=== PATIENT | female | born 1980 | race Hispanic/Latino ===

== ENCOUNTER 2017-08-02 01:14 | Emergency (ER) | payer MEDICAID ==
[2017-08-02] MEDS: NORCO 7.5/325 PO ONE (05:07)
--- NOTE | 2017-08-02 05:18 | XRay Report ---
FINAL REPORT PROCEDURE: XR SPINE LUMBOSACRAL 2-3V TECHNIQUE: Lumbar spine radiographs, including AP, lateral, and lumbosacral spot views. CPT 40551 HISTORY: lower back pain COMPARISON: No prior studies are available for comparison. FINDINGS: Alignment: There is grade 1 anterior spondylolisthesis of L5 over S1.. Vertebral body heights/Disk spaces: There is loss of disc height at L5-S1.. Fracture(s): None. Facets: There is bilateral spondylolysis at L5-S1.. Bone mineralization: Normal. IMPRESSION: There are no compression fractures.. There is grade 1 anterior spondylolisthesis of L5 over S1.. There is loss of disc height at L5-S1.. There is bilateral spondylolysis at L5-S1..
--- NOTE | 2017-08-02 05:42 | Emergency Department Report ---
ED Back Pain/Injury HPI - General Chief Complaint: Back Pain/Injury Stated Complaint: LOWER BACK PAIN Time Seen by Provider: 08/02/17 04:56 Source: patient Limitations: No Limitations - History of Present Illness Initial Comments: History 6-year-old female comes in for complaint of back pain that has been going on for a month. Patient reports that she has a history of spinal problems status post back trauma 20 years ago. Patient reports she she' s been taking ibuprofen 800 mg 3 times a day as well as she's tried Aleve. And she's been using heat wraps. She denies any loss of bowel or urine. She denies any radiation to her lower extremities or buttocks. She denies any dysuria. 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 MD Complaint: back pain -: month(s) (1) Place: home Radiation: none Severity: severe Severity scale (0 -10): 9 Consistency: intermittent Improves With: other Worsens With: movement, walking (heat wrap) Associated Symptoms: denies: numbness, difficulty urinating, incontinence, fever /chills Treatments Prior to Arrival: heat therapy, NSAIDS - Related Data Previous Rx's Medication Instructions Recorded Last Taken Type traMADol [Ultram 50 MG tab] 50 mg PO Q6HR PRN #20 tablet 08/02/17 Unknown Rx Allergies Allergy/AdvReac Type Severity Reaction Status Date / Time No Known Allergies Allergy Unverified 08/02/17 01:39 ED Review of Systems ROS: Stated complaint: LOWER BACK PAIN Other details as noted in HPI Constitutional: denies: chills, fever Eyes: denies: eye pain, eye discharge, vision change ENT: denies: ear pain, throat pain Respiratory: denies: cough, shortness of breath, wheezing Cardiovascular: denies: chest pain, palpitations Endocrine: no symptoms reported Gastrointestinal: denies: abdominal pain, nausea, diarrhea Genitourinary: denies: urgency, dysuria, discharge Musculoskeletal: back pain. denies: joint swelling, arthralgia Skin: denies: rash, lesions Neurological: denies: headache, weakness, paresthesias Psychiatric: denies: anxiety, depression Hematological/Lymphatic: denies: easy bleeding, easy bruising ED Past Medical Hx - Past Medical History Previous Medical History?: Yes Hx Hypertension: Yes Additional medical history: spine pblms - Surgical History Past Surgical History?: Yes Hx Cholecystectomy: Yes Additional Surgical History: c-sectX1, tubaligation, carpal tunnel - Social History Smoking Status: Current Every Day Smoker Substance Use Type: None - Medications Home Medications: Home Medications Medication Instructions Recorded Confirmed Last Taken Type traMADol [Ultram 50 MG tab] 50 mg PO Q6HR PRN #20 tablet 08/02/17 Unknown Rx ED Physical Exam - General Limitations: No Limitations General appearance: alert, in no apparent distress - Head Head exam: Present: atraumatic, normocephalic - Eye Eye exam: Present: normal appearance - ENT ENT exam: Present: mucous membranes moist - Neck Neck exam: Present: normal inspection - Respiratory Respiratory exam: Present: normal lung sounds bilaterally. Absent: respiratory distress - Cardiovascular Cardiovascular Exam: Present: regular rate, normal rhythm. Absent: systolic murmur, diastolic murmur, rubs, gallop - GI/Abdominal GI/Abdominal exam: Present: soft, normal bowel sounds - Extremities Exam Extremities exam: Present: normal inspection - Back Exam Back exam: Present: normal inspection, full ROM, vertebral tenderness. Absent: muscle spasm, paraspinal tenderness - Neurological Exam Neurological exam: Present: alert, oriented X3 - Psychiatric Psychiatric exam: Present: normal affect, normal mood - Skin Skin exam: Present: warm, dry, intact, normal color. Absent: rash ED Course Vital Signs 08/02/17 08/02/17 01:40 05:07 Temperature 98.8 F Pulse Rate 119 H Respiratory 18 18 Rate Blood Pressure 139/96 O2 Sat by Pulse 95 Oximetry ED Medical Decision Making - Radiology Data Radiology results: report reviewed, image reviewed FINDINGS: Alignment: There is grade 1 anterior spondylolisthesis of L5 over S1.. Vertebral body heights/Disk spaces: There is loss of disc height at L5-S1.. Fracture(s): None. Facets: There is bilateral spondylolysis at L5-S1.. Bone mineralization: Normal. IMPRESSION: There are no compression fractures.. There is grade 1 anterior spondylolisthesis of L5 over S1.. There is loss of disc height at L5-S1.. There is bilateral spondylolysis at L5-S1.. Transcribed By: CO Dictated By: MONE AKINS MD Electronically Authenticated By: MONE AKINS MD Signed Date/Time: 08/02/17512 DD/ 2 TD/TT: 08/02/17512 - Medical Decision Making Patient has been evaluated by this provider fast track. X-ray was ordered for patient pain medication. Discussed the patient she needs to follow up with orthopedics or back specialist. Critical care attestation.: If time is entered above; I have spent that time in minutes in the direct care of this critically ill patient, excluding procedure time. ED Disposition Clinical Impression: Spondylolisthesis at L5-S1 level, Spondylolysis, lumbosacral Disposition: DC- TO HOME OR SELFCARE Is pt being admited?: No Does the pt Need Aspirin: No Condition: Stable Instructions: Degenerative Disc Disease (ED), Cervical Radiculopathy (ED) Additional Instructions: Take pain medication as prescribed. Avoid picking up a heavy objects or people. Follow up with an orthopedist for further evaluation. Prescriptions: traMADol [Ultram 50 MG tab] 50 mg PO Q6HR PRN #20 tablet PRN Reason: Pain Referrals: CON JIMENEZ MD [Primary Care Provider] - 3-5 Days SYED UNDERWOOD MD [Staff Physician] - 3-5 Days [facility] [Provider Group] - 3-5 Days Forms: Accompanied Note
[2017-08-02 06:14] VITALS: BP 134/89
== END 2017-08-02 06:14 | disposition home or self-care (01) ==
LOC: ED 01:14
DX: M43.17 Spondylolisthesis, lumbosacral region (principal); I10 Essential (primary) hypertension; F17.200 Nicotine dependence, unspecified, uncomplicated; Z90.49 Acquired absence of other specified parts of digestive tract; Z98.51 Tubal ligation status
CPT/HCPCS: 72100; 99283

== ENCOUNTER 2018-03-02 18:53 | Emergency (ER) | payer SELFPAY ==
[2018-03-02 20:35] LABS: Hematocrit 42.5 % (30.3-42.9); Hemoglobin 14.2 gm/dl (10.1-14.3); Mean Corpuscular HGB Conc 34 % (30-34); Mean Corpuscular Hemoglobin 29 pg (28-32); Mean Corpuscular Volume 87 fl (79-97); Platelet Count 266 K/mm3 (140-440); Red Blood Count 4.88 M/mm3 (3.65-5.03); Red Cell Distribution Width 14.7 % (13.2-15.2)
[2018-03-02 20:46] LABS: INR 0.85 (0.87-1.13)
[2018-03-02 20:47] LABS: Partial Thromboplastin Time 33.4 Sec. (24.2-36.6)
[2018-03-02 20:49] LABS: BUN/Creatinine Ratio 6; Blood Urea Nitrogen 3 mg/dL (7-17); Hemolysis Index 13
[2018-03-02] MEDS ORDERED: NACL 0.9% 1000 ML 1,000 ML IV ONE (22:19)
[2018-03-02] MEDS ORDERED: K-DUR PO ONE (22:19)
[2018-03-02] MEDS ORDERED: MORPHINE IV ONE (23:48)
--- NOTE | 2018-03-03 01:02 | XRay Report ---
FINAL REPORT EXAM: XR CHEST 1V AP HISTORY: SOB TECHNIQUE: AP portable view of the chest. PRIORS: None. FINDINGS: The cardiomediastinal silhouette appears normal. The lungs are clear. The bones and soft tissues are unremarkable. IMPRESSION: No evidence of acute cardiopulmonary disease.
[2018-03-03] MEDS ORDERED: LOVENOX SUB-Q ONE (02:19)
--- NOTE | 2018-03-03 02:22 | Emergency Department Report ---
HPI - General Chief Complaint: Extremity Injury, Lower Time Seen by Provider: 03/02/18 21:57 - HPI HPI: 37-year-old female presents to the emergency department with complaint of some left thigh pain and the development of some small red nodular areas in the thigh that began while the patient was taking a bath earlier. Patient has a past medical history of hypertension, some "spine problems" and anxiety and/or panic attacks. She has a surgical history of cholecystectomy, C- section 1 and tubal ligation. She denies any fever, chest pain, back pain, lower extremity edema. Patient has some tramadol that she takes occasionally as needed for discomfort and she took one of those for her left thigh pain without much relief. There is no recent travel, recent surgery or recent immobility. ED Past Medical Hx - Past Medical History Hx Hypertension: Yes Additional medical history: spine pblms,PANIC ATTACKES - Surgical History Hx Cholecystectomy: Yes Additional Surgical History: c-sectX1, tubaligation, carpal tunnel - Social History Smoking Status: Never Smoker Substance Use Type: None - Medications Home Medications: Home Medications Medication Instructions Recorded Confirmed Last Taken Type traMADol [Ultram 50 MG tab] 50 mg PO Q6HR PRN #20 tablet 08/02/17 Unknown Rx Sulfamethoxazole/Trimethoprim 1 each PO BID #10 tablet 03/03/18 Unknown Rx [Bactrim DS TAB] ED Review of Systems ROS: Stated complaint: LT LEG PAIN Other details as noted in HPI Comment: All other systems reviewed and negative Constitutional: denies: chills, fever Eyes: denies: eye pain, eye discharge, vision change ENT: denies: ear pain, throat pain Respiratory: denies: cough, shortness of breath, wheezing Cardiovascular: denies: chest pain, palpitations Gastrointestinal: denies: abdominal pain, nausea, diarrhea Genitourinary: denies: urgency, dysuria, discharge Musculoskeletal: myalgia. denies: back pain Skin: change in color. denies: pruritus Neurological: denies: headache, weakness, paresthesias Physical Exam - Physical Exam Vital Signs: Vital Signs 03/02/18 03/02/18 03/02/18 19:39 19:48 22:25 Temperature 98.7 F 98.7 F 98 F Pulse Rate 124 H 117 H 96 H Respiratory 18 18 16 Rate Blood Pressure 154/116 154/116 Blood Pressure 140/96 [Left] O2 Sat by Pulse 97 97 99 Oximetry Physical Exam: GENERAL: The patient is well-developed well-nourished. HENT: Normocephalic. Atraumatic. Patient has moist mucous membranes. EYES: Extraocular motions are intact. Pupils equal reactive to light bilaterally. NECK: Supple. Trachea is midline. CHEST/LUNGS: Clear to auscultation. There is no respiratory distress noted. HEART/CARDIOVASCULAR: Regular. There is mild tachycardia. There is no murmur. ABDOMEN: Abdomen is soft, nontender. Patient has normal bowel sounds. There is no abdominal distention. SKIN: Skin is warm and dry. The patient has a few areas of linear slightly raised, tender, redness to the left medial upper thigh. It has a ropy texture and I feel it is consistent with superficial thrombophlebitis. NEURO: The patient is awake, alert, and oriented. The patient is cooperative. The patient has no focal neurologic deficits. The patient has normal speech. MUSCULOSKELETAL: There is some tenderness palpation to the left medial thigh where the patient has the few small linear ropy lesions. There is no limitation range of motion. There is no evidence of acute injury. ED Course Vital Signs 03/02/18 03/02/18 03/02/18 19:39 19:48 22:25 Temperature 98.7 F 98.7 F 98 F Pulse Rate 124 H 117 H 96 H Respiratory 18 18 16 Rate Blood Pressure 154/116 154/116 Blood Pressure 140/96 [Left] O2 Sat by Pulse 97 97 99 Oximetry ED Medical Decision Making - Lab Data Result diagrams: 03/02/18 20:18 03/02/18 20:18 - Radiology Data Radiology results: report reviewed, image reviewed interpreted by me: Chest x-ray does not show any acute process. There are no pleural effusions, obvious pneumonia and there is no pneumothorax. VQ scan is negative for pulmonary embolism. - Medical Decision Making This patient came in with complaint of some pain to the left thigh where she has some small red linear lesions that showed up while she was taking a bath. They are reproducible and when you palpate them they are small, superficial and ropey and feel that they are consistent with superficial thrombophlebitis. However the patient will be set up to get a outpatient venous Doppler ultrasound. Labs were done that did show an elevated d-dimer. Despite not having any chest pain, back pain or shortness of breath, I felt it was an official to rule out a pulmonary embolism. We had difficulty obtaining the period this resulted as negative for pulmonary embolism. Patient was given a dose of Lovenox and I set her up for an outpatient venous Doppler ultrasound to rule out a DVT as the source. If positive, she will be redirected to the emergency department for anticoagulation. If negative, she has been encouraged to follow up with her primary care physician. Patient's vital signs have been stable throughout her ED course and the tachycardia improved with some IV fluid and reassurance. She will return to the ER with any worsening or symptoms or any acute distress. - Differential Diagnosis DVT, superficial thrombophlebitis, cellulitis Critical Care Time: No Critical care attestation.: If time is entered above; I have spent that time in minutes in the direct care of this critically ill patient, excluding procedure time. ED Disposition Clinical Impression: Left thigh pain Disposition: DC-01 TO HOME OR SELFCARE Is pt being admited?: No Condition: Stable Instructions: Superficial Thrombophlebitis (ED) Additional Instructions: Please call the number on the discharge paperwork tomorrow morning to schedule an appointment to go to the outpatient imaging portion of the hospital for a left lower extremity venous Doppler ultrasound. This ultrasound will check you for a deep vein thrombosis, a blood clot in your leg. If negative, please make sure to follow up with your primary care physician in the next few days. If it is positive for a clot, you will be redirected to the emergency department for further evaluation and anticoagulation. Return to the emergency Department with any worsening of your symptoms or any acute distress. Prescriptions: Sulfamethoxazole/Trimethoprim [Bactrim DS TAB] 1 each PO BID #10 tablet Referrals: PRIMARY CARE [Primary Care Provider] - [facility] Time of Disposition: 02:30
--- NOTE | 2018-03-03 02:24 | Nuclear Medicine Report ---
FINAL REPORT EXAM: NM LUNG SCAN PERF/VENT HISTORY: SOB, elevated dimer TECHNIQUE: The nuclear medicine ventilation perfusion study was performed. The patient was given 15 mCi of Xe 133 gas and 5 mCi of technetium 99m MAA for the perfusion study. Images were acquired in the standard projections. Correlation is made with chest radiograph performed on the same date. PRIORS: None. FINDINGS: There is normal distribution of the radiopharmaceutical from both the ventilation and perfusion studies. There are no defects. IMPRESSION: Normal VQ scan. No evidence of PE.
[2018-03-03 03:03] VITALS: BP 138/97
== END 2018-03-03 03:02 | disposition home or self-care (01) ==
LOC: ED 18:53
DX: M79.652 Pain in left thigh (principal); L98.8 Other specified disorders of the skin and subcutaneous tissue; I10 Essential (primary) hypertension; Z90.49 Acquired absence of other specified parts of digestive tract; Z98.51 Tubal ligation status
CPT/HCPCS: 36415; 71045; 78582; 80048; 85027; 85379; 85610; 85730; 96372; 96374; 99284; A9540; A9558; J1650; J2270; J7030

== ENCOUNTER 2018-03-06 21:27 | Inpatient (IN) | payer SELFPAY ==
[2018-03-06] MEDS ORDERED: NACL 0.9% 500 ML 500 ML IV ONE (21:54)
[2018-03-06 23:41] LABS: Basophils # (Auto) 0.1 K/mm3 (0.0-0.1); Basophils % (Auto) 0.4 % (0.0-1.8); Eosinophils % (Auto) 0.2 % (0.0-4.3); Hematocrit 41.5 % (30.3-42.9); Hemoglobin 14.2 gm/dl (10.1-14.3); Lymphocytes # (Auto) 1.4 K/mm3 (1.2-5.4); Lymphocytes % (Auto) 11.3 % (13.4-35.0); Mean Corpuscular HGB Conc 34 % (30-34); Mean Corpuscular Hemoglobin 30 pg (28-32); Mean Corpuscular Volume 87 fl (79-97); Monocytes # (Auto) 0.6 K/mm3 (0.0-0.8); Monocytes % (Auto) 4.5 % (0.0-7.3); Platelet Count 145 K/mm3 (140-440); Red Blood Count 4.77 M/mm3 (3.65-5.03); Red Cell Distribution Width 15.2 % (13.2-15.2)
[2018-03-06 23:50] LABS: INR 0.93 (0.87-1.13)
--- NOTE | 2018-03-07 | XRay Report ---
FINAL REPORT PROCEDURE: XR CHEST 1V AP TECHNIQUE: Chest radiograph anteroposterior view. CPT 21305 HISTORY: possible Sepsis COMPARISON: 03/02/2018 FINDINGS: Heart: Normal. Mediastinum/Vessels: Normal. Lungs/Pleural space: Normal. Bony thorax: No acute osseous abnormality. Life support devices: None. IMPRESSION: No acute cardiopulmonary abnormality.
[2018-03-07] MEDS ORDERED: PROVENTIL IH ONE (00:10)
[2018-03-07] MEDS ORDERED: TYLENOL PO ONE (00:22)
[2018-03-07] MEDS ORDERED: K-DUR PO ONE (00:23)
[2018-03-07] MEDS ORDERED: NACL 0.9% 1000 ML IV ONE (00:23)
[2018-03-07 00:25] LABS: Alanine Aminotransferase 57 units/L (7-56); BUN/Creatinine Ratio 17; Blood Urea Nitrogen 10 mg/dL (7-17); Calcium 9.9 mg/dL (8.4-10.2); Hemolysis Index 36
[2018-03-07] MEDS ORDERED: XANAX PO ONE (00:35)
[2018-03-07] MEDS ORDERED: DILAUDID IM ONE (00:35)
--- NOTE | 2018-03-07 00:38 | Emergency Department Report ---
ED Fever HPI - General Chief Complaint: Chest Pain Stated Complaint: DIFFICULTY IN BREATHING Source: patient, old records Exam Limitations: no limitations - History of Present Illness Initial Comments: 37 yo female with a past medical history of IV drug abuse, hypertension, panic attacks on Xanax, and "spine problems", previous surgical history cholecystectomy, , and tubal ligation presents to the hospital complains of ongoing severe chest pain and continued intermittent fevers. Patient was seen here both March 02 and the with complaints of left thigh pain. The initial visit patient was started on Bactrim instructed to come back for outpatient Doppler. She will return to the ER because she could not afford outpatient Doppler exam. Doppler confirms a left leg superficial venous thrombosis, CT angiogram chest was negative, and patient was started on a ELiquis with ER physician recommendation for admission. Patient was seen by hospitalist and discharged home with diagnosis of muscle skeletal chest pain and Superfical venous thrombosis in his thrombosis. Patient states that the chest pain continues to be severe and unimproved with Percocet. Pain is worse with palpation, movement, and deep inspiration causing her to feel sob. Pain is at the sternal area and left posterior thoracic area. Patient denies persistent cough, dysuria, or abdominal pain. She has been having intermittent fevers the last several days and has taken approximately 4-5 doses of Bactrim prescribed during her initial ED visit on 03/02. She presents with fever, tachycardia, complaining of severe pain, and also states she did not have her Xanax today. ED Review of Systems ROS: Stated complaint: DIFFICULTY IN BREATHING Other details as noted in HPI Comment: All other systems reviewed and negative ED Past Medical Hx - Past Medical History Previous Medical History?: Yes Hx Hypertension: Yes Additional medical history: spine pblms,PANIC ATTACKES, IVDA - Surgical History Past Surgical History?: Yes Hx Cholecystectomy: Yes Additional Surgical History: [id number], tubaligation, carpal tunnel - Social History Smoking Status: Current Every Day Smoker Substance Use Type: None - Medications Home Medications: Home Medications Medication Instructions Recorded Confirmed Last Taken Type Sulfamethoxazole/Trimethoprim 1 each PO BID #10 tablet 03/03/18 03/05/18 Rx [Bactrim DS TAB] ALPRAZolam [Xanax TAB] 0.5 mg PO QHS PRN 03/05/18 03/05/18 03/04/18 History Apixaban [Eliquis] 5 mg PO BID #60 tablet 03/05/18 Unknown Rx Ibuprofen 600 mg PO Q6H 03/05/18 03/05/18 03/04/18 History Oxycodone HCl/Acetaminophen 1 each PO TID #24 tablet 03/05/18 Unknown Rx [Percocet 7.5/325 mg] ED Physical Exam - General Limitations: No Limitations - Other Other exam information: General: No limitations, moderate distress secondary to pain Head exam: Atraumatic, normocephalic Eyes exam: Normal appearance ENT: Moist mucous membrane, normal oropharynx Neck exam: Normal inspection, full range of motion, no meningismus nontender Respiratory exam: Clear to auscultation bilateral, no wheezes, rales, crackles Cardiovascular: Tachycardic regular rhythm, reproducible sternal and left posterior upper thoracic chest wall tenderness on palpation Abdomen: Soft, nondistended, and nontender, with normal bowel sounds, no rebound, or guarding Extremity: Full range of motion, left mid to distal thigh erythema Back: Normal Inspection, full range of motion, no tenderness Neurologic: Alert, oriented x3, cranial nerves intact, no motor or sensory deficit Psychiatric: Anxious, uncomfortable secondary to pain Skin: Warm, dry, intact ED Course Vital Signs 03/06/18 03/06/18 03/07/18 21:47 23:50 00:13 Temperature 101.8 F H Pulse Rate 133 H Pulse Rate [ 138 H 135 H Posterior Bilateral Throughout] Respiratory Rate Respiratory 22 18 Rate [Posterior Bilateral Throughout] Blood Pressure 130/90 O2 Sat by Pulse 95 Oximetry 03/07/18 03/07/18 03/07/18 01:26 01:30 01:40 Temperature 102.0 F H Pulse Rate Pulse Rate [ Posterior Bilateral Throughout] Respiratory 20 Rate Respiratory Rate [Posterior Bilateral Throughout] Blood Pressure 123/69 O2 Sat by Pulse 91 92 94 Oximetry 03/07/18 03/07/18 03/07/18 01:50 02:10 02:16 Temperature Pulse Rate 128 H 126 H 124 H Pulse Rate [ Posterior Bilateral Throughout] Respiratory 22 22 17 Rate Respiratory Rate [Posterior Bilateral Throughout] Blood Pressure 125/71 119/75 125/71 O2 Sat by Pulse 93 95 96 Oximetry 03/07/18 03/07/18 03/07/18 02:30 02:46 03:00 Temperature Pulse Rate 123 H 118 H 122 H Pulse Rate [ Posterior Bilateral Throughout] Respiratory 19 20 21 Rate Respiratory Rate [Posterior Bilateral Throughout] Blood Pressure 125/71 119/75 101/77 O2 Sat by Pulse 95 97 97 Oximetry 03/07/18 03/07/18 03/07/18 03:10 03:15 03:30 Temperature 99.2 F Pulse Rate 116 H 123 H Pulse Rate [ Posterior Bilateral Throughout] Respiratory 20 22 Rate Respiratory Rate [Posterior Bilateral Throughout] Blood Pressure 107/71 119/71 O2 Sat by Pulse 97 98 Oximetry 03/07/18 03/07/18 03/07/18 03:45 04:00 04:15 Temperature Pulse Rate 117 H 114 H 106 H Pulse Rate [ Posterior Bilateral Throughout] Respiratory 26 H 26 H 24 Rate Respiratory Rate [Posterior Bilateral Throughout] Blood Pressure 98/62 113/75 104/66 O2 Sat by Pulse 97 97 96 Oximetry 03/07/18 03/07/18 04:20 04:54 Temperature 98.7 F Pulse Rate 108 H 102 H Pulse Rate [ Posterior Bilateral Throughout] Respiratory 24 24 Rate Respiratory Rate [Posterior Bilateral Throughout] Blood Pressure 104/66 98/65 O2 Sat by Pulse 97 97 Oximetry ED Medical Decision Making - Lab Data Result diagrams: 03/06/18 23:19 03/06/18 23:19 Lab Results 03/06/18 03/06/18 03/06/18 Range/Units 00:46 23:19 23:19 WBC 12.7 H (4.5-11.0) K/mm3 RBC 4.77 (3.65-5.03) M/mm3 Hgb 14.2 (10.1-14.3) gm/dl Hct 41.5 (30.3-42.9) % MCV 87 (79-97) fl MCH 30 (28-32) pg MCHC 34 (30-34) % RDW 15.2 (13.2-15.2) % Plt Count 145 (140-440) K/mm3 Lymph % (Auto) 11.3 L (13.4-35.0) % [place] % (Auto) 4.5 (0.0-7.3) % Eos % (Auto) 0.2 (0.0-4.3) % Baso % (Auto) 0.4 (0.0-1.8) % Lymph # 1.4 (1.2-5.4) K/mm3 [place] # 0.6 (0.0-0.8) K/mm3 Eos # 0.0 (0.0-0.4) K/mm3 Baso # 0.1 (0.0-0.1) K/mm3 Seg Neutrophils % 83.6 H (40.0-70.0) % Seg Neutrophils # 10.6 H (1.8-7.7) K/mm3 PT (12.2-14.9) Sec. INR (0.87-1.13) VBG pH (7.320-7.420) Sodium 134 L (137-145) mmol/L Potassium 3.6 (3.6-5.0) mmol/L Chloride 95.2 L (98-107) mmol/L Carbon Dioxide 21 L (22-30) mmol/L Anion Gap 21 mmol/L BUN 10 (7-17) mg/dL Creatinine 0.6 L (0.7-1.2) mg/dL Estimated GFR > 60 ml/min BUN/Creatinine Ratio 17 % Glucose 88 (65-100) mg/dL Lactic Acid (0.7-2.0) mmol/L Calcium 9.9 (8.4-10.2) mg/dL Magnesium (1.7-2.3) mg/dL Total Bilirubin 0.90 (0.1-1.2) mg/dL AST 59 H (5-40) units/L ALT 57 H (7-56) units/L Alkaline Phosphatase 195 H (35-129) units/L Troponin T < 0.010 (0.00-0.029) ng/mL Total Protein 7.5 (6.3-8.2) g/dL Albumin 4.0 (3.9-5) g/dL Albumin/Globulin Ratio 1.1 % Urine Color Joanna (Yellow) Urine Turbidity Slightly-cloudy (Clear) Urine pH 5.0 (5.0-7.0) Ur Specific [place] 1.024 (1.003-1.030) Urine Protein 100 mg/dl (Negative) mg/dL Urine Glucose (UA) Neg (Negative) mg/dL Urine Ketones Neg (Negative) mg/dL Urine Blood Lg (Negative) Urine Nitrite Neg (Negative) Urine Bilirubin Neg (Negative) Urine Urobilinogen 2.0 (<2.0) mg/dL Ur Leukocyte Esterase Neg (Negative) Urine WBC (Auto) 5.0 (0.0-6.0) /HPF Urine RBC (Auto) > 182.0 (0.0-6.0) /HPF U Epithel Cells (Auto) 5.0 (0-13.0) /HPF Urine Mucus Few /HPF 03/06/18 03/06/18 03/06/18 Range/Units 23:22 23:37 23:37 WBC (4.5-11.0) K/mm3 RBC (3.65-5.03) M/mm3 Hgb (10.1-14.3) gm/dl Hct (30.3-42.9) % MCV (79-97) fl MCH (28-32) pg MCHC (30-34) % RDW (13.2-15.2) % Plt Count (140-440) K/mm3 Lymph % (Auto) (13.4-35.0) % [place] % (Auto) (0.0-7.3) % Eos % (Auto) (0.0-4.3) % Baso % (Auto) (0.0-1.8) % Lymph # (1.2-5.4) K/mm3 [place] # (0.0-0.8) K/mm3 Eos # (0.0-0.4) K/mm3 Baso # (0.0-0.1) K/mm3 Seg Neutrophils % (40.0-70.0) % Seg Neutrophils # (1.8-7.7) K/mm3 PT 12.9 (12.2-14.9) Sec. INR 0.93 (0.87-1.13) VBG pH 7.371 (7.320-7.420) Sodium (137-145) mmol/L Potassium (3.6-5.0) mmol/L Chloride (98-107) mmol/L Carbon Dioxide (22-30) mmol/L Anion Gap mmol/L BUN (7-17) mg/dL Creatinine (0.7-1.2) mg/dL Estimated GFR ml/min BUN/Creatinine Ratio % Glucose (65-100) mg/dL Lactic Acid 2.20 H* (0.7-2.0) mmol/L Calcium (8.4-10.2) mg/dL Magnesium (1.7-2.3) mg/dL Total Bilirubin (0.1-1.2) mg/dL AST (5-40) units/L ALT (7-56) units/L Alkaline Phosphatase (35-129) units/L Troponin T (0.00-0.029) ng/mL Total Protein (6.3-8.2) g/dL Albumin (3.9-5) g/dL Albumin/Globulin Ratio % Urine Color (Yellow) Urine Turbidity (Clear) Urine pH (5.0-7.0) Ur Specific [place] (1.003-1.030) Urine Protein (Negative) mg/dL Urine Glucose (UA) (Negative) mg/dL Urine Ketones (Negative) mg/dL Urine Blood (Negative) Urine Nitrite (Negative) Urine Bilirubin (Negative) Urine Urobilinogen (<2.0) mg/dL Ur Leukocyte Esterase (Negative) Urine WBC (Auto) (0.0-6.0) /HPF Urine RBC (Auto) (0.0-6.0) /HPF U Epithel Cells (Auto) (0-13.0) /HPF Urine Mucus /HPF 03/07/18 Range/Units Unknown WBC (4.5-11.0) K/mm3 RBC (3.65-5.03) M/mm3 Hgb (10.1-14.3) gm/dl Hct (30.3-42.9) % MCV (79-97) fl MCH (28-32) pg MCHC (30-34) % RDW (13.2-15.2) % Plt Count (140-440) K/mm3 Lymph % (Auto) (13.4-35.0) % [place] % (Auto) (0.0-7.3) % Eos % (Auto) (0.0-4.3) % Baso % (Auto) (0.0-1.8) % Lymph # (1.2-5.4) K/mm3 [place] # (0.0-0.8) K/mm3 Eos # (0.0-0.4) K/mm3 Baso # (0.0-0.1) K/mm3 Seg Neutrophils % (40.0-70.0) % Seg Neutrophils # (1.8-7.7) K/mm3 PT (12.2-14.9) Sec. INR (0.87-1.13) VBG pH (7.320-7.420) Sodium (137-145) mmol/L Potassium (3.6-5.0) mmol/L Chloride (98-107) mmol/L Carbon Dioxide (22-30) mmol/L Anion Gap mmol/L BUN (7-17) mg/dL Creatinine (0.7-1.2) mg/dL Estimated GFR ml/min BUN/Creatinine Ratio % Glucose (65-100) mg/dL Lactic Acid (0.7-2.0) mmol/L Calcium (8.4-10.2) mg/dL Magnesium 1.80 (1.7-2.3) mg/dL Total Bilirubin (0.1-1.2) mg/dL AST (5-40) units/L ALT (7-56) units/L Alkaline Phosphatase (35-129) units/L Troponin T (0.00-0.029) ng/mL Total Protein (6.3-8.2) g/dL Albumin (3.9-5) g/dL Albumin/Globulin Ratio % Urine Color (Yellow) Urine Turbidity (Clear) Urine pH (5.0-7.0) Ur Specific [place] (1.003-1.030) Urine Protein (Negative) mg/dL Urine Glucose (UA) (Negative) mg/dL Urine Ketones (Negative) mg/dL Urine Blood (Negative) Urine Nitrite (Negative) Urine Bilirubin (Negative) Urine Urobilinogen (<2.0) mg/dL Ur Leukocyte Esterase (Negative) Urine WBC (Auto) (0.0-6.0) /HPF Urine RBC (Auto) (0.0-6.0) /HPF U Epithel Cells (Auto) (0-13.0) /HPF Urine Mucus /HPF - EKG Data -: EKG Interpreted by Pa EKG shows normal: sinus rhythm, axis (qrs 9), QRS complexes (qrsd 87), ST-T waves (lvh, repol, no stemi) Rate: tachycardia (129) - EKG Data When compared to previous EKG there are: no significant change (compared to 03/13) - Radiology Data Radiology results: report reviewed cxr: naf - Medical Decision Making fever/sepsis source leg infection? ua pending at dispo, clindamycin given. Tylenol for fever 30ml/kg NS given as per sepsis protocol. + lactic acid Tachycardia questionable due to sepsis versus pain versus anxiety. Her evening dose of Xanax was provided. She has not had any Xanax today Patient has multiple recent ER visits here. I believe that chest pain is atypical and is musculoskeletal in origin. Patient had a recent negative CT angiogram chest and chest x-ray is negative today. I suspect the patient's pain is difficult to control due to tolerance from previous substance abuse history. Dilaudid provided in ed Hospitalist informed for admission - Differential Diagnosis sepsis, cellulitis, thrombophlebitis, costochondritis, pneumonia, UTI Critical Care Time: No Critical care attestation.: If time is entered above; I have spent that time in minutes in the direct care of this critically ill patient, excluding procedure time. ED Disposition Clinical Impression: Superficial vein thrombosis, Tachycardia, Chest pain, Cellulitis of left thigh , Sepsis Disposition: -09 OP ADMIT IP TO THIS HOSP Is pt being admited?: Yes Condition: Stable Time of Disposition: 01:36 (Dr Rodriguez/hosp)
[2018-03-07] MEDS ORDERED: CLEOCIN 600 MG/50 mL 600 MG/50 ML BAG IV ONE (01:01)
[2018-03-07 01:15] LABS: Bilirubin,Urine NEG (Negative); Blood,Urine LG (Negative); Color,Urine Amber (Yellow); Mucus,Urine FEW /HPF
[2018-03-07 01:17] LABS: RBC,Urine > 182.0 /HPF (0.0-6.0)
[2018-03-07] MEDS ORDERED: TYLENOL ONE (01:54)
--- NOTE | 2018-03-07 02:05 | History and Physical Report ---
History of Present Illness Date of examination: 03/07/18 History of present illness: A 37-year-old woman history of hypertension, panic disorder, recently diagnosed with superficial thrombosis of the left leg comes back to the emergency room today complaining of chest pain, shortness of breath. Patient was started on eliquis , she just started taking her eliquis today. She had a CAT scan done on March 05 which was negative for pulmonary emboli. Complaints of chest pain in the epigastric area radiating to the back, intermittent for a few minutes, intensity 4/10, admits to shortness of breath, no nausea vomiting, diaphoresis Review of systems Constitutional: no weight loss, chills, fever Ears, eyes, nose, mouth and throat: no nasal congestion, no nasal discharge, no sinus pressure, no vision change, no red eye. Neck: No neck pain or rigidity. Cardiovascular: no palpitations Respiratory: no cough Gastrointestinal: no abdominal pain hematochezia Genitourinary : no frequency , no hematuria Musculoskeletal: no joint swelling or muscle ache Integumentary: no rash, no pruritis Neurological: no parathesias, no numbness, no focal weakness Endocrine: no cold or heat intolerance, no polyuria or polydipsia Hematologic/Lymphatic: no easy bruising, no easy bleeding, no gland swelling Allergic/Immunologic: no urticaria, no angioedema. PAST MEDICAL HISTORY: hypertension, panic disorder, recently diagnosed with superficial thrombosis of the left leg PAST SURGICAL HISTORY: Carpal tunnel release, tubal ligation, , cholecystectomy SOCIAL HISTORY: No alcohol, no drugs, tobacco FAMILY HISTORY: Hypertension Medications and Allergies Allergies Allergy/AdvReac Type Severity Reaction Status Date / Time No Known Allergies Allergy Verified 03/06/18 23:18 Home Medications Medication Instructions Recorded Confirmed Last Taken Type Sulfamethoxazole/Trimethoprim 1 each PO BID #10 tablet 03/03/18 03/07/18 Rx [Bactrim DS TAB] ALPRAZolam [Xanax TAB] 0.5 mg PO QHS PRN 03/05/18 03/07/18 03/04/18 History Apixaban [Eliquis] 5 mg PO BID #60 tablet 03/05/18 03/07/18 Unknown Rx Ibuprofen 600 mg PO Q6H 03/05/18 03/07/18 03/04/18 History Exam - Physical Exam Narrative exam: Gen. appearance: Patient lying in bed, no apparent distress HEENT: Normocephalic, atraumatic, pupils equally round and reactive to light, extraocular movement intact, and no sclericterus,. No JVD or thyromegaly or nodule,neck supple, no carotid bruit ,mucous membranes moist, no exudate or erythema Heart: S1, S2, regular rate and rhythm Lungs: Clear bilaterally, breathing comfortable Abdomen: Positive bowel sounds, non-tender, nondistended, no organomegaly Extremity:no edema cyanosis, clubbing Skin: no rash, dry, warm Neuro: Oriented 3, cranial nerves II-12 intact, speech is fluent, motor and sensory intact - Constitutional Vitals: Temp Pulse Resp BP Pulse Ox 102.0 F H 135 H 20 130/90 94 03/07/18 01:40 03/07/18 00:13 03/07/18 01:40 03/06/18 21:47 03/07/18 01:40 Results - Labs CBC & Chem 7: 03/17/18 05:20 03/17/18 05:20 Labs: Abnormal lab results 03/06/18 03/06/18 03/06/18 Range/Units 23:19 23:19 23:37 WBC 12.7 H (4.5-11.0) K/mm3 Lymph % (Auto) 11.3 L (13.4-35.0) % Seg Neutrophils % 83.6 H (40.0-70.0) % Seg Neutrophils # 10.6 H (1.8-7.7) K/mm3 Sodium 134 L (137-145) mmol/L Chloride 95.2 L (98-107) mmol/L Carbon Dioxide 21 L (22-30) mmol/L Creatinine 0.6 L (0.7-1.2) mg/dL Lactic Acid 2.20 H* (0.7-2.0) mmol/L AST 59 H (5-40) units/L ALT 57 H (7-56) units/L Alkaline Phosphatase 195 H (35-129) units/L Assessment and Plan Assessment SIRS Chest pain Suferficial thrombosis Hypertension Plan Admit to medicine Start IV Zosyn, fluids, follow cultures Check cardiac enzymes, stress test Restart eliquis DVT prophalaxis
[2018-03-07] MEDS ORDERED: SODIUM CHLORIDE FLUSH SYRINGE 10 ML IV PRN (02:15)
[2018-03-07 03:08] LABS: Creatine Kinase MB < 1.0 ng/mL (0.0-4.0)
[2018-03-07 03:15] LABS: Creatine Kinase MB < 1.0 ng/mL (0.0-4.0)
[2018-03-07] MEDS ORDERED: NACL 0.9% 1000 ML 1,000 ML ONE (03:56)
[2018-03-07] MEDS: NACL 0.45% 1000 ML 1,000 ML IV SCH ×2 (05:48→19:59)
[2018-03-07] MEDS ORDERED: XANAX PO PRN (05:53)
[2018-03-07] MEDS: ZOSYN/NS 4.5GM/100ML 4.5 GM/100 ML VIAL IV SCH ×2 (06:24→13:56)
[2018-03-07] MEDS: MORPHINE IV PRN ×2 (08:31→14:59)
[2018-03-07] MEDS ORDERED: PROVENTIL IH PRN (09:29)
[2018-03-07] MEDS: DUONEB *Not for PRN Use IH SCH ×4 (09:31→20:51)
[2018-03-07 09:53] LABS: Creatine Kinase MB < 1.0 ng/mL (0.0-4.0)
[2018-03-07] MEDS: ELIQUIS PO SCH ×2 (10:22→21:48)
[2018-03-07] MEDS: SODIUM CHLORIDE FLUSH SYRINGE 10 ML IV SCH ×2 (10:22→21:49)
[2018-03-07] MEDS: XANAX PO PRN (10:29)
[2018-03-07] MEDS: PERCOCET 5/325 PO PRN ×2 (10:30→18:35)
--- NOTE | 2018-03-07 10:58 | Consultation ---
History of Present Illness Consult date: 03/07/18 Consult reason: chest pain History of present illness: This is a 37 year old woman who was seen in the emergency room two days ago with LLE pain, diagnosed with superficial venous thrombosis and is on eliquis for oral anticoagulation therapy. Patient returns with complaints of chest pain associated with severe lower back pain. Chest pain is poorly described. Cycled cardiac enzymes are negative. 12 lead ECG shows sinus tachycardia, rate 129. No acute ischemic changes. Cardiac consultation was requested for further evaluation. Medications and Allergies Allergies Allergy/AdvReac Type Severity Reaction Status Date / Time No Known Allergies Allergy Verified 03/06/18 23:18 Home Medications Medication Instructions Recorded Confirmed Last Taken Type Sulfamethoxazole/Trimethoprim 1 each PO BID #10 tablet 03/03/18 03/07/18 Rx [Bactrim DS TAB] ALPRAZolam [Xanax TAB] 0.5 mg PO QHS PRN 03/05/18 03/07/18 03/04/18 History Apixaban [Eliquis] 5 mg PO BID #60 tablet 03/05/18 03/07/18 Unknown Rx Ibuprofen 600 mg PO Q6H 03/05/18 03/07/18 03/04/18 History Active Meds: Active Medications Acetaminophen (Tylenol) 650 mg PO Q4H PRN PRN Reason: Pain MILD(1-3)/Fever >100.5/DEL TORO Albuterol (Proventil) 2.5 mg IH Q2HRT PRN PRN Reason: Shortness Of Breath Albuterol/Ipratropium (Duoneb *Not For Prn Use*) 1 ampul IH Q4HRT KATHLEEN Last Admin: 03/07/18 09:31 Dose: 1 ampul Alprazolam (Xanax) 0.5 mg PO Q12HR PRN PRN Reason: Anxiety Last Admin: 03/07/18 10:29 Dose: 0.5 mg Apixaban (Eliquis) 5 mg PO BID KATHLEEN; Protocol Last Admin: 03/07/18 10:22 Dose: 5 mg Sodium Chloride (Nacl 0.45% 1000 Ml) 1,000 mls @ 150 mls/hr IV DIRECT KATHLEEN Last Admin: 03/07/18 05:48 Dose: 150 mls/hr Piperacillin Sod/Tazobactam Sod (Zosyn/Ns 4.5gm/100ml) 4.5 gm in 100 mls @ 200 mls/hr IV Q8HR KATHLEEN; Protocol Last Admin: 03/07/18 06:24 Dose: 200 mls/hr Morphine Sulfate (Morphine) 2 mg IV Q4H PRN PRN Reason: Pain, Moderate (4-6) Last Admin: 03/07/18 08:31 Dose: 2 mg Ondansetron HCl (Zofran) 4 mg IV Q8H PRN PRN Reason: Nausea And Vomiting Oxycodone/Acetaminophen (Percocet 5/325) 2 tab PO Q6H PRN PRN Reason: Pain, Moderate (4-6) Last Admin: 03/07/18 10:30 Dose: 2 tab Sodium Chloride (Sodium Chloride Flush Syringe 10 Ml) 10 ml IV BID KATHLEEN Last Admin: 03/07/18 10:22 Dose: 10 ml Sodium Chloride (Sodium Chloride Flush Syringe 10 Ml) 10 ml IV PRN PRN PRN Reason: LINE FLUSH Physical Examination Vital Signs Temp Pulse BP Pulse Ox 101.8 F H 133 H 130/90 95 03/06/18 21:47 03/06/18 21:47 03/06/18 21:47 03/06/18 21:47 General appearance: mild distress HEENT: Positive: PERRL Cardiac: Positive: Reg Rate and Rhythm Lungs: Positive: Decreased Breath Sounds Neuro: Positive: Grossly Intact Extremities: Absent: edema Results 03/06/18 23:19 03/06/18 23:19 Cardiac Enzymes 03/06/18 03/07/18 03/07/18 Range/Units 23:19 02:36 02:36 AST 59 H (5-40) units/L CK-MB (CK-2) < 1.0 < 1.0 (0.0-4.0) ng/mL 03/07/18 Range/Units 09:14 AST (5-40) units/L CK-MB (CK-2) < 1.0 (0.0-4.0) ng/mL Coagulation 03/06/18 Range/Units 23:22 PT 12.9 (12.2-14.9) Sec. INR 0.93 (0.87-1.13) CBC 03/06/18 Range/Units 23:19 WBC 12.7 H (4.5-11.0) K/mm3 RBC 4.77 (3.65-5.03) M/mm3 Hgb 14.2 (10.1-14.3) gm/dl Hct 41.5 (30.3-42.9) % Plt Count 145 (140-440) K/mm3 Lymph # 1.4 (1.2-5.4) K/mm3 Frontier # 0.6 (0.0-0.8) K/mm3 Eos # 0.0 (0.0-0.4) K/mm3 Baso # 0.1 (0.0-0.1) K/mm3 Comprehensive Metabolic Panel 03/06/18 Range/Units 23:19 Sodium 134 L (137-145) mmol/L Potassium 3.6 (3.6-5.0) mmol/L Chloride 95.2 L (98-107) mmol/L Carbon Dioxide 21 L (22-30) mmol/L BUN 10 (7-17) mg/dL Creatinine 0.6 L (0.7-1.2) mg/dL Glucose 88 (65-100) mg/dL Calcium 9.9 (8.4-10.2) mg/dL AST 59 H (5-40) units/L ALT 57 H (7-56) units/L Alkaline Phosphatase 195 H (35-129) units/L Total Protein 7.5 (6.3-8.2) g/dL Albumin 4.0 (3.9-5) g/dL Assessment and Plan Severe back pain Chest pain, atypical Recent dx of Superficial venous thrombosis on eliquis for oral anticoagulation therapy. Stress thallium text has been canceled; patient is unable to lie flat on the table.
[2018-03-07] MEDS ORDERED: AFLURIA QUAD 2018-2019 SYRINGE IM ONE (12:00)
--- NOTE | 2018-03-07 13:05 | Event Note ---
Date: 03/07/18 Patient admitted this morning for pleuritic chest pain, panic attack, leukocytosis and lactic acidosis. Patient is on IV antibiotics, IV fluid, pain control. Unable to do stress test, we'll try to be tomorrow. Continue management per H&P.
[2018-03-07 13:22] LABS: Basophils # (Auto) 0.1 K/mm3 (0.0-0.1); Eosinophils # (Auto) 0.1 K/mm3 (0.0-0.4); Eosinophils % (Auto) 0.5 % (0.0-4.3); Hematocrit 35.3 % (30.3-42.9); Hemoglobin 11.8 gm/dl (10.1-14.3); Lymphocytes # (Auto) 2.1 K/mm3 (1.2-5.4); Lymphocytes % (Auto) 16.7 % (13.4-35.0); Mean Corpuscular HGB Conc 34 % (30-34); Mean Corpuscular Hemoglobin 29 pg (28-32); Mean Corpuscular Volume 87 fl (79-97); Monocytes # (Auto) 0.9 K/mm3 (0.0-0.8); Monocytes % (Auto) 6.8 % (0.0-7.3); Platelet Count 139 K/mm3 (140-440); Red Blood Count 4.04 M/mm3 (3.65-5.03); Red Cell Distribution Width 14.8 % (13.2-15.2)
[2018-03-07 13:42] LABS: BUN/Creatinine Ratio 14; Blood Urea Nitrogen 7 mg/dL (7-17); Calcium 7.8 mg/dL (8.4-10.2); Hemolysis Index 8
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
[2018-03-07] MEDS ORDERED: VANCOMYCIN VIAL IV ONE (16:47)
[2018-03-07] MEDS ORDERED: VANCOMYCIN PHARMACY TO DOSE IV SCH (17:00)
[2018-03-07] MEDS ORDERED: MAXIPIME/NS 2 GM/100 ML 2 GM/100 ML BAG IV SCH (17:00)
--- NOTE | 2018-03-07 17:03 | Cat Scan Report ---
FINAL REPORT EXAM: CT CHEST WO CON HISTORY: ? pneumonia COMPARISON: Chest radiograph performed on 03/06/2018 TECHNIQUE: Multiple contiguous axial images were obtained from the thoracic inlet to upper abdomen without administration of IV contrast. Reformatted sagittal and coronal images were available for review. FINDINGS: Medical devices: None. Thyroid: Normal. Lymph nodes: No significant mediastinal, hilar, or axillary lymphadenopathy. Vasculature: There is a right-sided aortic arch with a mere branching pattern. The pulmonary artery is normal in caliber. Heart: Normal heart size. Other mediastinal structures: Normal. Lung parenchyma: There is atelectasis versus consolidation in the left lower lobe. There is interlobular septal thickening throughout both lungs, but most prominent at the bilateral lung bases. There is also an additional focus of consolidation in the right upper lobe (series 4, image 24). Airways: Patent. No bronchiectasis. Pleura: Small left pleural effusion. Chest wall and spine: No suspicious osseous lesions. No acute fracture or dislocation. Soft tissues are normal. Upper Abdomen: Normal. IMPRESSION: Atelectasis versus consolidation in the left lower lobe. Additional focus of consolidation in the right upper lobe. Findings may represent sequela of infection, however there is also a component of pulmonary edema/fluid overload including interlobular septal thickening and a small left pleural effusion. Recommend clinical correlation. Incidental note is made of a right-sided aortic arch with a mirror image branching pattern.
[2018-03-07] MEDS ORDERED: VANCOMYCIN 2,000 MG in NACL 0.9% 500 ML 500 ML IV ONE (17:15)
[2018-03-07] MEDS: TYLENOL PO PRN (17:34)
[2018-03-07] MEDS: MIRALAX 3350 PO SCH (21:49)
[2018-03-08] MEDS: MORPHINE IV PRN ×3 (00:18→17:44)
[2018-03-08] MEDS: MAXIPIME/NS 2 GM/100 ML 2 GM/100 ML BAG IV SCH ×3 (02:03→19:11)
[2018-03-08] MEDS: VANCOMYCIN 1,500 MG in NACL 0.9% 500 ML 500 ML IV SCH ×2 (05:03→17:42)
[2018-03-08 05:28] LABS: Amphetamine Screen,Urine PRESUMPTIVE NEGATIVE; Benzodiazepines Screen,Urine PRESUMPTIVE NEGATIVE; Cannabinoid Screen,Urine PRESUMPTIVE NEGATIVE; Cocaine Screen,Urine PRESUMPTIVE NEGATIVE; Methadone Screen,Urine PRESUMPTIVE NEGATIVE; Opiate Screen,Urine PRESUMPTIVE NEGATIVE
[2018-03-08 06:00] LABS: Basophils % (Auto) 0.2 % (0.0-1.8); Eosinophils # (Auto) 0.1 K/mm3 (0.0-0.4); Eosinophils % (Auto) 0.5 % (0.0-4.3); Hematocrit 37.5 % (30.3-42.9); Hemoglobin 12.3 gm/dl (10.1-14.3); Lymphocytes # (Auto) 1.7 K/mm3 (1.2-5.4); Lymphocytes % (Auto) 13.6 % (13.4-35.0); Mean Corpuscular HGB Conc 33 % (30-34); Mean Corpuscular Hemoglobin 29 pg (28-32); Mean Corpuscular Volume 87 fl (79-97); Monocytes # (Auto) 1.2 K/mm3 (0.0-0.8); Monocytes % (Auto) 9.5 % (0.0-7.3); Platelet Count 157 K/mm3 (140-440); Red Blood Count 4.31 M/mm3 (3.65-5.03); Red Cell Distribution Width 15.2 % (13.2-15.2)
[2018-03-08 06:31] LABS: BUN/Creatinine Ratio 10; Blood Urea Nitrogen 5 mg/dL (7-17); Calcium 8.7 mg/dL (8.4-10.2); Hemolysis Index 5
[2018-03-08] MEDS: DUONEB *Not for PRN Use IH SCH ×4 (08:54→19:58)
[2018-03-08] MEDS ORDERED: K-DUR PO ONE (09:19)
[2018-03-08] MEDS: PERCOCET 5/325 PO PRN ×3 (09:24→21:10)
[2018-03-08] MEDS: ZOFRAN IV PRN (09:24)
[2018-03-08] MEDS: XANAX PO PRN ×2 (09:24→21:10)
[2018-03-08] MEDS: ELIQUIS PO SCH ×2 (09:24→21:11)
[2018-03-08] MEDS: MIRALAX 3350 PO SCH ×2 (09:25→21:14)
[2018-03-08] MEDS: SODIUM CHLORIDE FLUSH SYRINGE 10 ML IV SCH ×2 (09:47→21:49)
--- NOTE | 2018-03-08 14:40 | Progress Note ---
Assessment and Plan Assessment and plan: 37-year-old female with past medical history significant for hypertension, IV drug abuse, superficial venous thrombosis presented to the emergency department complaining of pleuritic left-sided chest pain. Patient had fever and elevated lactic acid and leukocytosis. Sepsis from left-sided pneumonia - Patient is monitored according to sepsis protocol - ID consulted and recommend cephepim and vancomycin - Blood culture grew staph aureus, sensitivities pending - CT chest showed right-sided lower lobe pneumonia Anxiety disorder - Continue Xanax when necessary Pleuritic chest pain - Likely due to pneumonia - Pain control DVT prophylaxis - Continue eliquis Disposition - Continue inpatient care History Interval history: Seen and evaluated this morning, patient is complaining of left-sided chest pain , around the lower mid axillary area. Hospitalist Physical - Physical exam Narrative exam: Not in cardiopulmonary distress. The patient is obese Vital signs as documented. Head exam is unremarkable. No scleral icterus . Neck is without jugular venous distension, thyromegaly, or carotid bruits. Lungs are clear to auscultation. Cardiac exam reveals regular rate and Rhythm. First and second heart sounds normal. No murmurs, rubs or gallops. Abdominal exam reveals normal bowel sounds, no masses, no organomegaly and no aortic enlargement. Extremities are nonedematous and both femoral and pedal pulses are normal. BIOSTATISTICIAN: Alert and oriented 3. No focal weakness. Psych; patient is anxious. - Constitutional Vitals: Temp Pulse Resp BP Pulse Ox 98.1 F 104 H 20 125/88 97 03/08/18 12:49 03/08/18 12:49 03/08/18 12:59 03/08/18 12:49 03/08/18 12:49 General appearance: Present: mild distress Results - Labs CBC & Chem 7: 03/08/18 05:08 03/08/18 05:08 Labs: Laboratory Last Values WBC 12.6 K/mm3 (4.5-11.0) H 03/08/18 05:08 RBC 4.31 M/mm3 (3.65-5.03) 03/08/18 05:08 Hgb 12.3 gm/dl (10.1-14.3) 03/08/18 05:08 Hct 37.5 % (30.3-42.9) 03/08/18 05:08 MCV 87 fl (79-97) 03/08/18 05:08 MCH 29 pg (28-32) 03/08/18 05:08 MCHC 33 % (30-34) 03/08/18 05:08 RDW 15.2 % (13.2-15.2) 03/08/18 05:08 Plt Count 157 K/mm3 (140-440) 03/08/18 05:08 Lymph % (Auto) 13.6 % (13.4-35.0) 03/08/18 05:08 [place]verse % (Auto) 9.5 % (0.0-7.3) H 03/08/18 05:08 Eos % (Auto) 0.5 % (0.0-4.3) 03/08/18 05:08 Baso % (Auto) 0.2 % (0.0-1.8) 03/08/18 05:08 Lymph # 1.7 K/mm3 (1.2-5.4) 03/08/18 05:08 [place] # 1.2 K/mm3 (0.0-0.8) H 03/08/18 05:08 Eos # 0.1 K/mm3 (0.0-0.4) 03/08/18 05:08 Baso # 0.0 K/mm3 (0.0-0.1) 03/08/18 05:08 Seg Neutrophils % 76.2 % (40.0-70.0) H 03/08/18 05:08 Seg Neutrophils # 9.6 K/mm3 (1.8-7.7) H 03/08/18 05:08 PT 12.9 Sec. (12.2-14.9) 03/06/18 23:22 INR 0.93 (0.87-1.13) 03/06/18 23:22 VBG pH 7.371 (7.320-7.420) 03/06/18 23:37 Sodium 130 mmol/L (137-145) L D 03/08/18 05:08 Potassium 3.1 mmol/L (3.6-5.0) L D 03/08/18 05:08 Chloride 99.8 mmol/L (98-107) 03/08/18 05:08 Carbon Dioxide 23 mmol/L (22-30) 03/08/18 05:08 Anion Gap 10 mmol/L 03/08/18 05:08 BUN 5 mg/dL (7-17) L 03/08/18 05:08 Creatinine 0.5 mg/dL (0.7-1.2) L 03/08/18 05:08 Estimated GFR > 60 ml/min 03/08/18 05:08 BUN/Creatinine Ratio 10 % 03/08/18 05:08 Glucose 124 mg/dL (65-100) H 03/08/18 05:08 Lactic Acid 1.40 mmol/L (0.7-2.0) 03/07/18 13:34 Calcium 8.7 mg/dL (8.4-10.2) 03/08/18 05:08 Magnesium 1.80 mg/dL (1.7-2.3) 03/07/18 Unknown Total Bilirubin 0.90 mg/dL (0.1-1.2) 03/06/18 23:19 AST 59 units/L (5-40) H 03/06/18 23:19 ALT 57 units/L (7-56) H 03/06/18 23:19 Alkaline Phosphatase 195 units/L (35-129) H 03/06/18 23:19 Total Creatine Kinase 23 units/L (30-135) L 03/07/18 09:14 CK-MB (CK-2) < 1.0 ng/mL (0.0-4.0) 03/07/18 09:14 CK-MB (CK-2) Rel Index 4.3 (0-4) H 03/07/18 09:14 Troponin T < 0.010 ng/mL (0.00-0.029) 03/07/18 09:14 Total Protein 7.5 g/dL (6.3-8.2) 03/06/18 23:19 Albumin 4.0 g/dL (3.9-5) 03/06/18 23:19 Albumin/Globulin Ratio 1.1 % 03/06/18 23:19 Urine Color Joanna (Yellow) 03/06/18 00:46 Urine Turbidity Slightly-cloudy (Clear) 03/06/18 00:46 Urine pH 5.0 (5.0-7.0) 03/06/18 00:46 Ur Specific [place] 1.024 (1.003-1.030) 03/06/18 00:46 Urine Protein 100 mg/dl mg/dL (Negative) 03/06/18 00:46 Urine Glucose (UA) Neg mg/dL (Negative) 03/06/18 00:46 Urine Ketones Neg mg/dL (Negative) 03/06/18 00:46 Urine Blood Lg (Negative) 03/06/18 00:46 Urine Nitrite Neg (Negative) 03/06/18 00:46 Urine Bilirubin Neg (Negative) 03/06/18 00:46 Urine Urobilinogen 2.0 mg/dL (<2.0) 03/06/18 00:46 Ur Leukocyte Esterase Neg (Negative) 03/06/18 00:46 Urine WBC (Auto) 5.0 /HPF (0.0-6.0) 03/06/18 00:46 Urine RBC (Auto) > 182.0 /HPF (0.0-6.0) 03/06/18 00:46 U Epithel Cells (Auto) 5.0 /HPF (0-13.0) 03/06/18 00:46 Urine Mucus Few /HPF 03/06/18 00:46 Urine Opiates Screen Presumptive negative 03/07/18 04:35 Urine Methadone Screen Presumptive negative 03/07/18 04:35 Ur Barbiturates Screen Presumptive negative 03/07/18 04:35 Ur Phencyclidine Scrn Presumptive negative 03/07/18 04:35 Ur Amphetamines Screen Presumptive negative 03/07/18 04:35 U Benzodiazepines Scrn Presumptive negative 03/07/18 04:35 Urine Cocaine Screen Presumptive negative 03/07/18 04:35 U Marijuana (THC) Screen Presumptive negative 03/07/18 04:35 Drugs of Abuse Note Disclamer 03/07/18 04:35 Hep Bs Antigen Non-reactive (Negative) 03/07/18 23:01 Hepatitis C Antibody Non-reactive (NonReactive) 03/07/18 23:01
--- NOTE | 2018-03-08 14:59 | Progress Note ---
Assessment and Plan - Patient Problems (1) Atypical chest pain Current Visit: Yes Status: Acute Plan to address problem: Chest pain is noncardiac in character, echocardiogram shows normal left ventricular systolic function, ejection fraction 50-55%. Conservative cardiac management. Subjective Date of service: 03/08/18 Interval history: Echocardiogram shows well-preserved left ventricular systolic function, ejection fraction 50-55%. No cardiac complaints. Objective Vital Signs Temp Pulse Pulse Resp Resp Resp BP 03/08/18 12:59 20 03/08/18 12:49 98.1 F 104 H 22 125/88 03/08/18 10:24 20 03/08/18 09:38 20 03/08/18 09:24 20 03/08/18 08:55 03/08/18 08:12 99.6 F 108 H 20 128/77 03/08/18 05:01 98.4 F 117 H 18 128/78 03/07/18 23:50 98.5 F 109 H 18 149/95 03/07/18 22:00 20 03/07/18 20:00 120 H 03/07/18 19:29 98.2 F 131 H 18 126/86 03/07/18 18:35 20 03/07/18 17:34 20 03/07/18 16:07 99.0 F 118 H 20 154/113 03/07/18 15:56 108 H 20 03/07/18 15:35 114 H 20 03/07/18 15:29 20 03/07/18 14:59 20 Pulse Ox 03/08/18 12:59 03/08/18 12:49 97 03/08/18 10:24 03/08/18 09:38 03/08/18 09:24 03/08/18 08:55 92 03/08/18 08:12 94 03/08/18 05:01 92 03/07/18 23:50 95 03/07/18 22:00 03/07/18 20:00 03/07/18 19:29 99 03/07/18 18:35 03/07/18 17:34 03/07/18 16:07 96 03/07/18 15:56 03/07/18 15:35 03/07/18 15:29 03/07/18 14:59 - Physical Examination General: No Apparent Distress HEENT: Positive: PERRL Neck: Positive: neck supple Cardiac: Positive: Reg Rate and Rhythm Lungs: Positive: Decreased Breath Sounds Neuro: Positive: Grossly Intact Abdomen: Positive: Soft Skin: Positive: Clear Extremities: Absent: edema - Labs and Meds CBC 03/08/18 Range/Units 05:08 WBC 12.6 H (4.5-11.0) K/mm3 RBC 4.31 (3.65-5.03) M/mm3 Hgb 12.3 (10.1-14.3) gm/dl Hct 37.5 (30.3-42.9) % Plt Count 157 (140-440) K/mm3 Lymph # 1.7 (1.2-5.4) K/mm3 Posey # 1.2 H (0.0-0.8) K/mm3 Eos # 0.1 (0.0-0.4) K/mm3 Baso # 0.0 (0.0-0.1) K/mm3 Comprehensive Metabolic Panel 03/08/18 Range/Units 05:08 Sodium 130 L D (137-145) mmol/L Potassium 3.1 L D (3.6-5.0) mmol/L Chloride 99.8 (98-107) mmol/L Carbon Dioxide 23 (22-30) mmol/L BUN 5 L (7-17) mg/dL Creatinine 0.5 L (0.7-1.2) mg/dL Glucose 124 H (65-100) mg/dL Calcium 8.7 (8.4-10.2) mg/dL
[2018-03-08] MEDS: NACL 0.45% 1000 ML 1,000 ML IV SCH (21:10)
[2018-03-09] MEDS: TYLENOL PO PRN (02:29)
[2018-03-09] MEDS: MAXIPIME/NS 2 GM/100 ML 2 GM/100 ML BAG IV SCH ×3 (02:29→22:31)
[2018-03-09] MEDS: MORPHINE IV PRN ×4 (02:30→22:45)
[2018-03-09] MEDS: VANCOMYCIN 1,500 MG in NACL 0.9% 500 ML 500 ML IV SCH ×2 (05:48→18:01)
[2018-03-09] MEDS: PERCOCET 5/325 PO PRN ×3 (05:52→18:01)
[2018-03-09 07:18] LABS: Hematocrit 36.5 % (30.3-42.9); Mean Corpuscular HGB Conc 33 % (30-34); Mean Corpuscular Hemoglobin 29 pg (28-32); Mean Corpuscular Volume 87 fl (79-97); Platelet Count 239 K/mm3 (140-440); Red Blood Count 4.18 M/mm3 (3.65-5.03); Red Cell Distribution Width 15.2 % (13.2-15.2)
[2018-03-09 07:29] LABS: BUN/Creatinine Ratio 10; Blood Urea Nitrogen 4 mg/dL (7-17); Calcium 8.5 mg/dL (8.4-10.2); Hemolysis Index 10
[2018-03-09] MEDS: DUONEB *Not for PRN Use IH SCH ×3 (08:26→20:04)
[2018-03-09 08:32] LABS: Band Neutrophils # (Manual) 0.2 K/mm3; Basophils % (Manual) 0 % (0.0-1.8); Total Cells Counted 100
[2018-03-09 08:33] LABS: Platelet Estimate Consistent w Auto; RBC Morphology Normal; Smudge Cells Few
[2018-03-09] MEDS: ZOFRAN IV PRN (10:06)
[2018-03-09] MEDS: ELIQUIS PO SCH ×2 (10:06→22:33)
[2018-03-09] MEDS: MIRALAX 3350 PO SCH ×2 (10:07→22:31)
[2018-03-09] MEDS: SODIUM CHLORIDE FLUSH SYRINGE 10 ML IV SCH ×2 (10:08→22:33)
[2018-03-09] MEDS: XANAX PO PRN ×2 (10:21→22:33)
--- NOTE | 2018-03-09 12:40 | Event Note ---
Date: 03/09/18 Patient is comfortable, no cardiac complaints. Hemodynamics are stable. No active ongoing cardiac issues, we will follow intermittently.
--- NOTE | 2018-03-09 13:52 | Progress Note ---
Assessment and Plan Assessment and plan: 37-year-old female with past medical history significant for hypertension, IV drug abuse, superficial venous thrombosis presented to the emergency department complaining of pleuritic left-sided chest pain. Patient had fever and elevated lactic acid and leukocytosis. Sepsis from left-sided pneumonia - Patient is managed according to sepsis protocol - ID consulted and recommend cephepim and vancomycin - Blood culture grew MRSA, contact isolation, echo showed no vegetation, repeat blood culture is negative - CT chest showed right-sided lower lobe pneumonia Anxiety disorder - Continue Xanax when necessary Pleuritic chest pain - Likely due to pneumonia - Pain control DVT prophylaxis - Continue eliquis Disposition - Continue inpatient care History Interval history: Seen and evaluated this morning, patient is complaining of left-sided chest pain , around the lower mid axillary area. Patient was not in distress. Hospitalist Physical - Physical exam Narrative exam: Not in cardiopulmonary distress. The patient is obese Vital signs as documented. Head exam is unremarkable. No scleral icterus . Neck is without jugular venous distension, thyromegaly, or carotid bruits. Lungs are clear to auscultation. Cardiac exam reveals regular rate and Rhythm. First and second heart sounds normal. No murmurs, rubs or gallops. Abdominal exam reveals normal bowel sounds, no masses, no organomegaly and no aortic enlargement. Extremities are nonedematous and both femoral and pedal pulses are normal. STAFF ANALYST: Alert and oriented 3. No focal weakness. - Constitutional Vitals: Temp Pulse Resp BP Pulse Ox 98.1 F 120 H 20 108/75 96 03/09/18 08:05 03/09/18 13:28 03/09/18 13:28 03/09/18 08:05 03/09/18 08:05 General appearance: Present: mild distress Results - Labs CBC & Chem 7: 03/09/18 06:55 03/09/18 06:55 Labs: Laboratory Last Values WBC 16.2 K/mm3 (4.5-11.0) H 03/09/18 06:55 RBC 4.18 M/mm3 (3.65-5.03) 03/09/18 06:55 Hgb 12.0 gm/dl (10.1-14.3) 03/09/18 06:55 Hct 36.5 % (30.3-42.9) 03/09/18 06:55 MCV 87 fl (79-97) 03/09/18 06:55 MCH 29 pg (28-32) 03/09/18 06:55 MCHC 33 % (30-34) 03/09/18 06:55 RDW 15.2 % (13.2-15.2) 03/09/18 06:55 Plt Count 239 K/mm3 (140-440) 03/09/18 06:55 Lymph % (Auto) 13.6 % (13.4-35.0) 03/08/18 05:08 [place] % (Auto) 9.5 % (0.0-7.3) H 03/08/18 05:08 Eos % (Auto) 0.5 % (0.0-4.3) 03/08/18 05:08 Baso % (Auto) 0.2 % (0.0-1.8) 03/08/18 05:08 Lymph # 1.7 K/mm3 (1.2-5.4) 03/08/18 05:08 [place] # 1.2 K/mm3 (0.0-0.8) H 03/08/18 05:08 Eos # 0.1 K/mm3 (0.0-0.4) 03/08/18 05:08 Baso # 0.0 K/mm3 (0.0-0.1) 03/08/18 05:08 Add Manual Diff Complete 03/09/18 06:55 Total Counted 100 03/09/18 06:55 Seg Neutrophils % 76.2 % (40.0-70.0) H 03/08/18 05:08 Seg Neuts % (Manual) 66.0 % (40.0-70.0) 03/09/18 06:55 Band Neutrophils % 1.0 % 03/09/18 06:55 Lymphocytes % (Manual) 18.0 % (13.4-35.0) 03/09/18 06:55 Reactive Lymphs % (Man) 1.0 % 03/09/18 06:55 Monocytes % (Manual) 13.0 % (0.0-7.3) H 03/09/18 06:55 Eosinophils % (Manual) 1.0 % (0.0-4.3) 03/09/18 06:55 Basophils % (Manual) 0 % (0.0-1.8) 03/09/18 06:55 Metamyelocytes % 0 % 03/09/18 06:55 Myelocytes % 0 % 03/09/18 06:55 Promyelocytes % 0 % 03/09/18 06:55 Blast Cells % 0 % 03/09/18 06:55 Nucleated RBC % Not Reportable 03/09/18 06:55 Seg Neutrophils # 9.6 K/mm3 (1.8-7.7) H 03/08/18 05:08 Seg Neutrophils # Man 10.7 K/mm3 (1.8-7.7) H 03/09/18 06:55 Band Neutrophils # 0.2 K/mm3 03/09/18 06:55 Lymphocytes # (Manual) 2.9 K/mm3 (1.2-5.4) 03/09/18 06:55 Abs React Lymphs (Man) 0.2 K/mm3 03/09/18 06:55 Monocytes # (Manual) 2.1 K/mm3 (0.0-0.8) H 03/09/18 06:55 Eosinophils # (Manual) 0.2 K/mm3 (0.0-0.4) 03/09/18 06:55 Basophils # (Manual) 0.0 K/mm3 (0.0-0.1) 03/09/18 06:55 Metamyelocytes # 0.0 K/mm3 03/09/18 06:55 Myelocytes # 0.0 K/mm3 03/09/18 06:55 Promyelocytes # 0.0 K/mm3 03/09/18 06:55 Blast Cells # 0.0 K/mm3 03/09/18 06:55 WBC Morphology Not Reportable 03/09/18 06:55 Hypersegmented Neuts Not Reportable 03/09/18 06:55 Hyposegmented Neuts Not Reportable 03/09/18 06:55 Hypogranular Neuts Not Reportable 03/09/18 06:55 Smudge Cells Few 03/09/18 06:55 Toxic Granulation Not Reportable 03/09/18 06:55 Toxic Vacuolation Not Reportable 03/09/18 06:55 Dohle Bodies Not Reportable 03/09/18 06:55 Pelger-Huet Anomaly Not Reportable 03/09/18 06:55 Yoni Rods Not Reportable 03/09/18 06:55 Platelet Estimate Consistent w auto 03/09/18 06:55 Clumped Platelets Not Reportable 03/09/18 06:55 Plt Clumps, EDTA Not Reportable 03/09/18 06:55 Large Platelets Not Reportable 03/09/18 06:55 Giant Platelets Not Reportable 03/09/18 06:55 Platelet Satelliting Not Reportable 03/09/18 06:55 Plt Morphology Comment Not Reportable 03/09/18 06:55 RBC Morphology Normal 03/09/18 06:55 Dimorphic RBCs Not Reportable 03/09/18 06:55 Polychromasia Not Reportable 03/09/18 06:55 Hypochromasia Not Reportable 03/09/18 06:55 Poikilocytosis Not Reportable 03/09/18 06:55 Anisocytosis Not Reportable 03/09/18 06:55 Microcytosis Not Reportable 03/09/18 06:55 Macrocytosis Not Reportable 03/09/18 06:55 Spherocytes Not Reportable 03/09/18 06:55 Pappenheimer Bodies Not Reportable 03/09/18 06:55 Sickle Cells Not Reportable 03/09/18 06:55 Target Cells Not Reportable 03/09/18 06:55 Tear Drop Cells Not Reportable 03/09/18 06:55 Ovalocytes Not Reportable 03/09/18 06:55 Helmet Cells Not Reportable 03/09/18 06:55 [place] Bodies Not Reportable 03/09/18 06:55 [place] Rings Not Reportable 03/09/18 06:55 Marie Cells Not Reportable 03/09/18 06:55 Bite Cells Not Reportable 03/09/18 06:55 Crenated Cell Not Reportable 03/09/18 06:55 Elliptocytes Not Reportable 03/09/18 06:55 Acanthocytes (Spur) Not Reportable 03/09/18 06:55 Rouleaux Not Reportable 03/09/18 06:55 Hemoglobin C Crystals Not Reportable 03/09/18 06:55 Schistocytes Not Reportable 03/09/18 06:55 Malaria parasites Not Reportable 03/09/18 06:55 [place] Bodies Not Reportable 03/09/18 06:55 Hem Pathologist Commnt No 03/09/18 06:55 PT 12.9 Sec. (12.2-14.9) 03/06/18 23:22 INR 0.93 (0.87-1.13) 03/06/18 23:22 VBG pH 7.371 (7.320-7.420) 03/06/18 23:37 Sodium 133 mmol/L (137-145) L 03/09/18 06:55 Potassium 3.5 mmol/L (3.6-5.0) L 03/09/18 06:55 Chloride 100.9 mmol/L (98-107) 03/09/18 06:55 Carbon Dioxide 22 mmol/L (22-30) 03/09/18 06:55 Anion Gap 14 mmol/L 03/09/18 06:55 BUN 4 mg/dL (7-17) L 03/09/18 06:55 Creatinine 0.4 mg/dL (0.7-1.2) L 03/09/18 06:55 Estimated GFR > 60 ml/min 03/09/18 06:55 BUN/Creatinine Ratio 10 % 03/09/18 06:55 Glucose 105 mg/dL (65-100) H 03/09/18 06:55 Lactic Acid 1.40 mmol/L (0.7-2.0) 03/07/18 13:34 Calcium 8.5 mg/dL (8.4-10.2) 03/09/18 06:55 Magnesium 1.80 mg/dL (1.7-2.3) 03/07/18 Unknown Total Bilirubin 0.90 mg/dL (0.1-1.2) 03/06/18 23:19 AST 59 units/L (5-40) H 03/06/18 23:19 ALT 57 units/L (7-56) H 03/06/18 23:19 Alkaline Phosphatase 195 units/L (35-129) H 03/06/18 23:19 Total Creatine Kinase 23 units/L (30-135) L 03/07/18 09:14 CK-MB (CK-2) < 1.0 ng/mL (0.0-4.0) 03/07/18 09:14 CK-MB (CK-2) Rel Index 4.3 (0-4) H 03/07/18 09:14 Troponin T < 0.010 ng/mL (0.00-0.029) 03/07/18 09:14 Total Protein 7.5 g/dL (6.3-8.2) 03/06/18 23:19 Albumin 4.0 g/dL (3.9-5) 03/06/18 23:19 Albumin/Globulin Ratio 1.1 % 03/06/18 23:19 Urine Color Joanna (Yellow) 03/06/18 00:46 Urine Turbidity Slightly-cloudy (Clear) 03/06/18 00:46 Urine pH 5.0 (5.0-7.0) 03/06/18 00:46 Ur Specific [place] 1.024 (1.003-1.030) 03/06/18 00:46 Urine Protein 100 mg/dl mg/dL (Negative) 03/06/18 00:46 Urine Glucose (UA) Neg mg/dL (Negative) 03/06/18 00:46 Urine Ketones Neg mg/dL (Negative) 03/06/18 00:46 Urine Blood Lg (Negative) 03/06/18 00:46 Urine Nitrite Neg (Negative) 03/06/18 00:46 Urine Bilirubin Neg (Negative) 03/06/18 00:46 Urine Urobilinogen 2.0 mg/dL (<2.0) 03/06/18 00:46 Ur Leukocyte Esterase Neg (Negative) 03/06/18 00:46 Urine WBC (Auto) 5.0 /HPF (0.0-6.0) 03/06/18 00:46 Urine RBC (Auto) > 182.0 /HPF (0.0-6.0) 03/06/18 00:46 U Epithel Cells (Auto) 5.0 /HPF (0-13.0) 03/06/18 00:46 Urine Mucus Few /HPF 03/06/18 00:46 Urine Opiates Screen Presumptive negative 03/07/18 04:35 Urine Methadone Screen Presumptive negative 03/07/18 04:35 Ur Barbiturates Screen Presumptive negative 03/07/18 04:35 Ur Phencyclidine Scrn Presumptive negative 03/07/18 04:35 Ur Amphetamines Screen Presumptive negative 03/07/18 04:35 U Benzodiazepines Scrn Presumptive negative 03/07/18 04:35 Urine Cocaine Screen Presumptive negative 03/07/18 04:35 U Marijuana (THC) Screen Presumptive negative 03/07/18 04:35 Drugs of Abuse Note Disclamer 03/07/18 04:35 Hep Bs Antigen Non-reactive (Negative) 03/07/18 23:01 Hepatitis C Antibody Non-reactive (NonReactive) 03/07/18 23:01
[2018-03-09] MEDS: NACL 0.45% 1000 ML 1,000 ML IV SCH (22:30)
[2018-03-10] MEDS: MAXIPIME/NS 2 GM/100 ML 2 GM/100 ML BAG IV SCH ×2 (01:45→09:25)
[2018-03-10] MEDS: MORPHINE IV PRN ×3 (02:15→16:44)
[2018-03-10] MEDS: PERCOCET 5/325 PO PRN ×3 (05:42→19:41)
[2018-03-10] MEDS: VANCOMYCIN 1,500 MG in NACL 0.9% 500 ML 500 ML IV SCH ×2 (05:42→14:23)
[2018-03-10 06:01] LABS: Hematocrit 35.7 % (30.3-42.9); Hemoglobin 11.6 gm/dl (10.1-14.3); Mean Corpuscular HGB Conc 33 % (30-34); Mean Corpuscular Hemoglobin 29 pg (28-32); Mean Corpuscular Volume 89 fl (79-97); Platelet Count 377 K/mm3 (140-440); Red Blood Count 4.03 M/mm3 (3.65-5.03); Red Cell Distribution Width 15.4 % (13.2-15.2)
[2018-03-10 07:00] LABS: Alanine Aminotransferase 21 units/L (7-56); Albumin 2.7 g/dL (3.9-5); BUN/Creatinine Ratio 10; Blood Urea Nitrogen 4 mg/dL (7-17); Calcium 8.8 mg/dL (8.4-10.2); Hemolysis Index 6
[2018-03-10] MEDS: DUONEB *Not for PRN Use IH SCH ×3 (08:14→20:25)
[2018-03-10 08:59] LABS: Eosinophils % (Manual) 0 % (0.0-4.3); Total Cells Counted 100
[2018-03-10 09:00] LABS: Platelet Estimate Cons; RBC Morphology Normal
[2018-03-10] MEDS: ELIQUIS PO SCH ×2 (09:15→21:48)
[2018-03-10] MEDS: SODIUM CHLORIDE FLUSH SYRINGE 10 ML IV SCH ×2 (09:15→22:01)
[2018-03-10] MEDS: MIRALAX 3350 PO SCH ×2 (09:15→21:45)
--- NOTE | 2018-03-10 12:07 | Progress Note ---
Assessment and Plan Cultures: 03/06/2018 blood culture: One out of 4 bottles positive for MRSA 03/07/2018 Blood culture: no growth thus far A/P: 37-year-old female with hypertension, anxiety disorder, IVDU admitted with: 1) Sepsis, present on admission: Patient with fevers, leukocytosis, tachycardia and tachypnea. Source is MRSA bacteremia and bilateral pneumonia. 2) MRSA bacteremia with bilateral pneumonia: No evidence of septic thrombophlebitis of left lower extremity on exam. Patient does have a history of IVDU, although denies active IVDU. Bilateral pneumonia, also a nodular infiltrate seen on the right side which could correspond to a septic embolus. Will eval for endocarditis with CHANCE, since TTE images were sub-optimal. Given back pain, will order MRI thoraco-lumbar spine to eval for discitis/ osteomyelitis. 3) IVDU: Hepatitis B, C screens negative. Recommendations: Discontinued cefepime Continue IV vancomycin by PK-based dosing, level is sub-therapeutic, will need to increase dose follow up blood cultures CHANCE requested MRI thoraco-lumbar spine ordered to eval for discitis/osteomyelitis and epidural abscess Plan discussed with Dr. Overton. Please call with questions. Will follow along. Jessica Benson MD [facility] C: [phone] O: [phone] F: [phone] Subjective Date of service: 03/10/18 Principal diagnosis: MRSA bacteremia Interval history: Patient's fevers have improved, continues to complain of pain in the left upper back radiating to the right upper back. No diarrhea. No vomiting. Objective - Exam Narrative Exam: Physical Exam: Constitutional: Alert, cooperative. moderate distress due to pain Head, Ears, Nose: Normocephalic, atraumatic. External ears, nose normal Eyes: Conjunctivae/corneas clear. No icterus. No ptosis. Neck: Supple, no meningeal signs Oral: edentulous, no thrush Cardiovascular: S1, S2 normal, tachycardic, no murmur heard Respiratory: left basal crackles, unable to take a deep breath, no wheeze GI: Soft, non-tender; bowel sounds normal. No peritoneal signs Musculoskeletal: No pedal edema, no cyanosis. Mild right and left upper paraspinal tenderness Skin: No rash or abscess, livedo type rash on both legs Hem/Lymphatic: No palpable cervical or supraclavicular nodes. No lymphangitis Psych: Mood anxious. Affect normal Neurological: Awake, alert, oriented. No gross abnormality - Constitutional Vitals: Vital Signs Temp Pulse Resp BP Pulse Ox 98.9 F 105 H 18 135/86 95 03/10/18 04:56 03/10/18 08:40 03/10/18 11:52 03/10/18 08:05 03/10/18 08:16 Temperature -Last 24 Hours Temperature 98.9 F Temperature 98.4 F Temperature 98.2 F Temperature 97.9 F - Labs CBC & Chem 7: 03/10/18 05:20 03/10/18 05:20 Labs: Abnormal lab results 03/09/18 03/10/18 03/10/18 Range/Units 20:55 05:20 05:20 WBC 19.2 H (4.5-11.0) K/mm3 RDW 15.4 H (13.2-15.2) % Monocytes % (Manual) 12.0 H (0.0-7.3) % Seg Neutrophils # Man 13.4 H (1.8-7.7) K/mm3 Monocytes # (Manual) 2.3 H (0.0-0.8) K/mm3 Basophils # (Manual) 0.2 H (0.0-0.1) K/mm3 Sodium (137-145) mmol/L Carbon Dioxide (22-30) mmol/L BUN (7-17) mg/dL Creatinine (0.7-1.2) mg/dL Glucose (65-100) mg/dL POC Glucose 123 H (70-105) Alkaline Phosphatase (35-129) units/L Albumin (3.9-5) g/dL Vancomycin Trough 4.5 L (5.0-20.0) ug/mL 03/10/18 Range/Units 05:20 WBC (4.5-11.0) K/mm3 RDW (13.2-15.2) % Monocytes % (Manual) (0.0-7.3) % Seg Neutrophils # Man (1.8-7.7) K/mm3 Monocytes # (Manual) (0.0-0.8) K/mm3 Basophils # (Manual) (0.0-0.1) K/mm3 Sodium 132 L (137-145) mmol/L Carbon Dioxide 20 L (22-30) mmol/L BUN 4 L (7-17) mg/dL Creatinine 0.4 L (0.7-1.2) mg/dL Glucose 109 H (65-100) mg/dL POC Glucose (70-105) Alkaline Phosphatase 177 H (35-129) units/L Albumin 2.7 L (3.9-5) g/dL Vancomycin Trough (5.0-20.0) ug/mL
[2018-03-10] MEDS ORDERED: DULCOLAX PR PRN (12:59)
[2018-03-10] MEDS: NACL 0.45% 1000 ML 1,000 ML IV SCH (14:22)
--- NOTE | 2018-03-10 14:56 | Progress Note ---
Assessment and Plan Assessment and plan: 37-year-old female with past medical history significant for hypertension, IV drug abuse, superficial venous thrombosis presented to the emergency department complaining of pleuritic left-sided chest pain. Patient had fever and elevated lactic acid and leukocytosis. Sepsis from left-sided pneumonia - Patient is managed according to sepsis protocol - ID consulted and was on cefepim and vancomycin, cefepim discontinued today - Blood culture grew MRSA, contact isolation, echo showed no vegetation, repeat blood culture is negative - CT chest showed right-sided lower lobe pneumonia - TTE was normal, given her history IVDU patient will have CHANCE, MRI of the spine to R/O discitis, abscess Anxiety disorder - Continue Xanax when necessary Pleuritic chest pain - Likely due to pneumonia - Pain control DVT prophylaxis - Continue eliquis Disposition - Continue inpatient care History Interval history: Patient was seen and evaluated this morning, patient is complaining of left- sided chest pain, around the lower mid axillary area. Patient was not in distress. Hospitalist Physical - Physical exam Narrative exam: Not in cardiopulmonary distress. The patient is obese Vital signs as documented. Head exam is unremarkable. No scleral icterus . Neck is without jugular venous distension, thyromegaly, or carotid bruits. Lungs are clear to auscultation. Cardiac exam reveals regular rate and Rhythm. First and second heart sounds normal. No murmurs, rubs or gallops. Abdominal exam reveals normal bowel sounds, no masses, no organomegaly and no aortic enlargement. Extremities are nonedematous and both femoral and pedal pulses are normal. OFFICE MANAGER RECEPTIONIST: Alert and oriented 3. No focal weakness. - Constitutional Vitals: Temp Pulse Resp BP Pulse Ox 98.9 F 105 H 18 135/86 95 03/10/18 04:56 03/10/18 08:40 03/10/18 12:52 03/10/18 08:05 03/10/18 08:16 General appearance: Present: mild distress Results - Labs CBC & Chem 7: 03/10/18 05:20 03/10/18 05:20 Labs: Laboratory Last Values WBC 19.2 K/mm3 (4.5-11.0) H 03/10/18 05:20 RBC 4.03 M/mm3 (3.65-5.03) 03/10/18 05:20 Hgb 11.6 gm/dl (10.1-14.3) 03/10/18 05:20 Hct 35.7 % (30.3-42.9) 03/10/18 05:20 MCV 89 fl (79-97) 03/10/18 05:20 MCH 29 pg (28-32) 03/10/18 05:20 MCHC 33 % (30-34) 03/10/18 05:20 RDW 15.4 % (13.2-15.2) H 03/10/18 05:20 Plt Count 377 K/mm3 (140-440) 03/10/18 05:20 Lymph % (Auto) 13.6 % (13.4-35.0) 03/08/18 05:08 [place] % (Auto) 9.5 % (0.0-7.3) H 03/08/18 05:08 Eos % (Auto) 0.5 % (0.0-4.3) 03/08/18 05:08 Baso % (Auto) 0.2 % (0.0-1.8) 03/08/18 05:08 Lymph # 1.7 K/mm3 (1.2-5.4) 03/08/18 05:08 [place] # 1.2 K/mm3 (0.0-0.8) H 03/08/18 05:08 Eos # 0.1 K/mm3 (0.0-0.4) 03/08/18 05:08 Baso # 0.0 K/mm3 (0.0-0.1) 03/08/18 05:08 Add Manual Diff Complete 03/10/18 05:20 Total Counted 100 03/10/18 05:20 Seg Neutrophils % 76.2 % (40.0-70.0) H 03/08/18 05:08 Seg Neuts % (Manual) 70.0 % (40.0-70.0) 03/10/18 05:20 Band Neutrophils % 0 % 03/10/18 05:20 Lymphocytes % (Manual) 17.0 % (13.4-35.0) 03/10/18 05:20 Reactive Lymphs % (Man) 0 % 03/10/18 05:20 Monocytes % (Manual) 12.0 % (0.0-7.3) H 03/10/18 05:20 Eosinophils % (Manual) 0 % (0.0-4.3) 03/10/18 05:20 Basophils % (Manual) 1.0 % (0.0-1.8) 03/10/18 05:20 Metamyelocytes % 0 % 03/10/18 05:20 Myelocytes % 0 % 03/10/18 05:20 Promyelocytes % 0 % 03/10/18 05:20 Blast Cells % 0 % 03/10/18 05:20 Nucleated RBC % Not Reportable 03/10/18 05:20 Seg Neutrophils # 9.6 K/mm3 (1.8-7.7) H 03/08/18 05:08 Seg Neutrophils # Man 13.4 K/mm3 (1.8-7.7) H 03/10/18 05:20 Band Neutrophils # 0.0 K/mm3 03/10/18 05:20 Lymphocytes # (Manual) 3.3 K/mm3 (1.2-5.4) 03/10/18 05:20 Abs React Lymphs (Man) 0.0 K/mm3 03/10/18 05:20 Monocytes # (Manual) 2.3 K/mm3 (0.0-0.8) H 03/10/18 05:20 Eosinophils # (Manual) 0.0 K/mm3 (0.0-0.4) 03/10/18 05:20 Basophils # (Manual) 0.2 K/mm3 (0.0-0.1) H 03/10/18 05:20 Metamyelocytes # 0.0 K/mm3 03/10/18 05:20 Myelocytes # 0.0 K/mm3 03/10/18 05:20 Promyelocytes # 0.0 K/mm3 03/10/18 05:20 Blast Cells # 0.0 K/mm3 03/10/18 05:20 WBC Morphology Not Reportable 03/10/18 05:20 Hypersegmented Neuts Not Reportable 03/10/18 05:20 Hyposegmented Neuts Not Reportable 03/10/18 05:20 Hypogranular Neuts Not Reportable 03/10/18 05:20 Smudge Cells Not Reportable 03/10/18 05:20 Toxic Granulation Not Reportable 03/10/18 05:20 Toxic Vacuolation Not Reportable 03/10/18 05:20 Dohle Bodies Not Reportable 03/10/18 05:20 [place]-Huet Anomaly Not Reportable 03/10/18 05:20 Yoni Rods Not Reportable 03/10/18 05:20 Platelet Estimate Cons 03/10/18 05:20 Clumped Platelets Not Reportable 03/10/18 05:20 Plt Clumps, EDTA Not Reportable 03/10/18 05:20 Large Platelets Not Reportable 03/10/18 05:20 Giant Platelets Not Reportable 03/10/18 05:20 Platelet Satelliting Not Reportable 03/10/18 05:20 Plt Morphology Comment Not Reportable 03/10/18 05:20 RBC Morphology Normal 03/10/18 05:20 Dimorphic RBCs Not Reportable 03/10/18 05:20 Polychromasia Not Reportable 03/10/18 05:20 Hypochromasia Not Reportable 03/10/18 05:20 Poikilocytosis Not Reportable 03/10/18 05:20 Anisocytosis Not Reportable 03/10/18 05:20 Microcytosis Not Reportable 03/10/18 05:20 Macrocytosis Not Reportable 03/10/18 05:20 Spherocytes Not Reportable 03/10/18 05:20 Pappenheimer Bodies Not Reportable 03/10/18 05:20 Sickle Cells Not Reportable 03/10/18 05:20 Target Cells Not Reportable 03/10/18 05:20 Tear Drop Cells Not Reportable 03/10/18 05:20 Ovalocytes Not Reportable 03/10/18 05:20 Helmet Cells Not Reportable 03/10/18 05:20 [place] Bodies Not Reportable 03/10/18 05:20 [place] Rings Not Reportable 03/10/18 05:20 Marie Cells Not Reportable 03/10/18 05:20 Bite Cells Not Reportable 03/10/18 05:20 Crenated Cell Not Reportable 03/10/18 05:20 Elliptocytes Not Reportable 03/10/18 05:20 Acanthocytes (Spur) Not Reportable 03/10/18 05:20 Rouleaux Not Reportable 03/10/18 05:20 Hemoglobin C Crystals Not Reportable 03/10/18 05:20 Schistocytes Not Reportable 03/10/18 05:20 [place] parasites Not Reportable 03/10/18 05:20 [place] Bodies Not Reportable 03/10/18 05:20 Hem Pathologist Commnt No 03/10/18 05:20 PT 12.9 Sec. (12.2-14.9) 03/06/18 23:22 INR 0.93 (0.87-1.13) 03/06/18 23:22 VBG pH 7.371 (7.320-7.420) 03/06/18 23:37 Sodium 132 mmol/L (137-145) L 03/10/18 05:20 Potassium 3.6 mmol/L (3.6-5.0) 03/10/18 05:20 Chloride 98.4 mmol/L (98-107) 03/10/18 05:20 Carbon Dioxide 20 mmol/L (22-30) L 03/10/18 05:20 Anion Gap 17 mmol/L 03/10/18 05:20 BUN 4 mg/dL (7-17) L 03/10/18 05:20 Creatinine 0.4 mg/dL (0.7-1.2) L 03/10/18 05:20 Estimated GFR > 60 ml/min 03/10/18 05:20 BUN/Creatinine Ratio 10 % 03/10/18 05:20 Glucose 109 mg/dL (65-100) H 03/10/18 05:20 POC Glucose 123 (70-105) H 03/09/18 20:55 Lactic Acid 1.40 mmol/L (0.7-2.0) 03/07/18 13:34 Calcium 8.8 mg/dL (8.4-10.2) 03/10/18 05:20 Magnesium 1.80 mg/dL (1.7-2.3) 03/07/18 Unknown Total Bilirubin 0.90 mg/dL (0.1-1.2) 03/10/18 05:20 AST 13 units/L (5-40) 03/10/18 05:20 ALT 21 units/L (7-56) 03/10/18 05:20 Alkaline Phosphatase 177 units/L (35-129) H 03/10/18 05:20 Total Creatine Kinase 23 units/L (30-135) L 03/07/18 09:14 CK-MB (CK-2) < 1.0 ng/mL (0.0-4.0) 03/07/18 09:14 CK-MB (CK-2) Rel Index 4.3 (0-4) H 03/07/18 09:14 Troponin T < 0.010 ng/mL (0.00-0.029) 03/07/18 09:14 Total Protein 7.2 g/dL (6.3-8.2) 03/10/18 05:20 Albumin 2.7 g/dL (3.9-5) L 03/10/18 05:20 Albumin/Globulin Ratio 0.6 % 03/10/18 05:20 Urine Color Joanna (Yellow) 03/06/18 00:46 Urine Turbidity Slightly-cloudy (Clear) 03/06/18 00:46 Urine pH 5.0 (5.0-7.0) 03/06/18 00:46 Ur Specific [place] 1.024 (1.003-1.030) 03/06/18 00:46 Urine Protein 100 mg/dl mg/dL (Negative) 03/06/18 00:46 Urine Glucose (UA) Neg mg/dL (Negative) 03/06/18 00:46 Urine Ketones Neg mg/dL (Negative) 03/06/18 00:46 Urine Blood Lg (Negative) 03/06/18 00:46 Urine Nitrite Neg (Negative) 03/06/18 00:46 Urine Bilirubin Neg (Negative) 03/06/18 00:46 Urine Urobilinogen 2.0 mg/dL (<2.0) 10 00:46 Ur Leukocyte Esterase Neg (Negative) 03/06/18 00:46 Urine WBC (Auto) 5.0 /HPF (0.0-6.0) 03/06/18 00:46 Urine RBC (Auto) > 182.0 /HPF (0.0-6.0) 03/06/18 00:46 U Epithel Cells (Auto) 5.0 /HPF (0-13.0) 03/06/18 00:46 Urine Mucus Few /HPF 03/06/18 00:46 Vancomycin Trough 4.5 ug/mL (5.0-20.0) L 03/10/18 05:20 Urine Opiates Screen Presumptive negative 03/07/18 04:35 Urine Methadone Screen Presumptive negative 03/07/18 04:35 Ur Barbiturates Screen Presumptive negative 03/07/18 04:35 Ur Phencyclidine Scrn Presumptive negative 03/07/18 04:35 Ur Amphetamines Screen Presumptive negative 03/07/18 04:35 U Benzodiazepines Scrn Presumptive negative 03/07/18 04:35 Urine Cocaine Screen Presumptive negative 03/07/18 04:35 U Marijuana (THC) Screen Presumptive negative 03/07/18 04:35 Drugs of Abuse Note Disclamer 03/07/18 04:35 Hep Bs Antigen Non-reactive (Negative) 03/07/18 23:01 Hepatitis C Antibody Non-reactive (NonReactive) 03/07/18 23:01 HIV 1&2 Antibody Rapid Non react (Non React) 03/10/18 12:50 HIV P24 Antigen Non react (Non React) 03/10/18 12:50
[2018-03-10] MEDS: TYLENOL PO PRN (21:48)
[2018-03-11] MEDS: XANAX PO PRN ×3 (00:16→22:28)
[2018-03-11] MEDS: MORPHINE IV PRN ×2 (00:16→05:05)
[2018-03-11] MEDS: VANCOMYCIN 1,500 MG in NACL 0.9% 500 ML 500 ML IV SCH ×2 (00:22→07:00)
[2018-03-11 07:23] LABS: Hematocrit 31.7 % (30.3-42.9); Hemoglobin 10.6 gm/dl (10.1-14.3); Mean Corpuscular HGB Conc 33 % (30-34); Mean Corpuscular Hemoglobin 29 pg (28-32); Mean Corpuscular Volume 87 fl (79-97); Platelet Count 445 K/mm3 (140-440); Red Blood Count 3.63 M/mm3 (3.65-5.03)
[2018-03-11 07:28] LABS: BUN/Creatinine Ratio 13; Blood Urea Nitrogen 5 mg/dL (7-17); Hemolysis Index 33
[2018-03-11 08:22] LABS: Band Neutrophils # (Manual) 0.6 K/mm3; Eosinophils % (Manual) 0 % (0.0-4.3); Hypersegmented Neutrophils Rare; Platelet Estimate Cons; RBC Morphology Normal; Total Cells Counted 100
[2018-03-11] MEDS: MIRALAX 3350 PO SCH ×3 (08:30→22:28)
[2018-03-11] MEDS: PERCOCET 5/325 PO PRN ×3 (08:30→20:16)
[2018-03-11] MEDS: DUONEB *Not for PRN Use IH SCH ×3 (09:24→21:43)
--- NOTE | 2018-03-11 11:18 | Progress Note ---
Assessment and Plan Sepsis MRSA bateremia Pneumonia Severe back pain Chest pain, atypical Recent dx of Superficial venous thrombosis on eliquis for oral anticoagulation therapy. Patient has been recommended for a CHANCE for rule out endocarditis. This is scheduled for tomorrow morning. Subjective Date of service: 03/11/18 Principal diagnosis: MRSA bacteremia Interval history: Patient has no cardiac complaints. Patient has been recommended for a CHANCE. Objective Vital Signs Temp Pulse Pulse Resp Resp BP BP 03/11/18 09:25 03/11/18 08:47 18 03/11/18 08:29 99.9 F H 130 H 22 148/77 03/11/18 08:00 112 H 20 03/11/18 04:40 102.1 F H 133 H 22 185/110 03/11/18 01:09 98.9 F 112 H 22 130/84 03/10/18 22:00 124 H 03/10/18 21:17 18 03/10/18 20:41 112 H 22 03/10/18 20:26 110 H 22 03/10/18 19:41 18 03/10/18 19:36 100.3 F H 123 H 24 128/82 03/10/18 17:14 18 03/10/18 16:44 18 03/10/18 16:31 98.8 F 111 H 18 138/88 03/10/18 12:52 18 03/10/18 11:52 18 Pulse Ox 03/11/18 09:25 97 03/11/18 08:47 03/11/18 08:29 87 03/11/18 08:00 03/11/18 04:40 87 03/11/18 01:09 90 03/10/18 22:00 03/10/18 21:17 03/10/18 20:41 03/10/18 20:26 94 03/10/18 19:41 03/10/18 19:36 95 03/10/18 17:14 03/10/18 16:44 03/10/18 16:31 97 03/10/18 12:52 03/10/18 11:52 - Physical Examination General: No Apparent Distress HEENT: Positive: PERRL Cardiac: Positive: Reg Rate and Rhythm Lungs: Positive: Decreased Breath Sounds Neuro: Positive: Grossly Intact Abdomen: Positive: Soft Skin: Positive: Clear Extremities: Absent: edema - Labs and Meds CBC 03/11/18 Range/Units 06:44 WBC 20.4 H (4.5-11.0) K/mm3 RBC 3.63 L (3.65-5.03) M/mm3 Hgb 10.6 (10.1-14.3) gm/dl Hct 31.7 (30.3-42.9) % Plt Count 445 H (140-440) K/mm3 Comprehensive Metabolic Panel 03/11/18 Range/Units 06:44 Sodium 135 L (137-145) mmol/L Potassium 4.0 (3.6-5.0) mmol/L Chloride 98.4 (98-107) mmol/L Carbon Dioxide 22 (22-30) mmol/L BUN 5 L (7-17) mg/dL Creatinine 0.4 L (0.7-1.2) mg/dL Glucose 102 H (65-100) mg/dL Calcium 8.0 L (8.4-10.2) mg/dL
--- NOTE | 2018-03-11 11:27 | Progress Note ---
Assessment and Plan Assessment and plan: Sepsis from left-sided pneumonia - Patient is managed according to sepsis protocol - ID following. Continue antibiotics per recommendations. - Blood culture grew MRSA, contact isolation, echo showed no vegetation, repeat blood culture is negative - CT chest showed right-sided lower lobe pneumonia - TTE was normal, given her history IVDU patient will have CHANCE, MRI of the spine to R/O discitis, abscess Anxiety disorder - Continue Xanax when necessary Pleuritic chest pain - Likely due to pneumonia - Pain control DVT prophylaxis - Continue eliquis Disposition - Continue inpatient care History Interval history: 37-year-old female with past medical history significant for hypertension, IV drug abuse, superficial venous thrombosis presented to the emergency department complaining of pleuritic left-sided chest pain. Patient had fever and elevated lactic acid and leukocytosis on admission which persists at this time. Hospitalist Physical - Constitutional Vitals: Temp Pulse Resp BP Pulse Ox 99.9 F H 130 H 18 148/77 97 03/11/18 08:29 03/11/18 08:29 03/11/18 08:47 03/11/18 08:29 03/11/18 09:25 General appearance: Present: mild distress - EENT Eyes: Present: PERRL, EOM intact ENT: hearing intact, clear oral mucosa, dentition normal - Neck Neck: Present: supple, normal ROM - Respiratory Respiratory effort: normal Respiratory: bilateral: CTA - Cardiovascular Rhythm: regular Heart Sounds: Present: S1 & S2. Absent: gallop, rub - Extremities Extremities: no ischemia, No edema, Full ROM - Abdominal General gastrointestinal: soft, non-tender, non-distended, normal bowel sounds - Integumentary Integumentary: Present: clear, warm, dry - Neurologic Neurologic: CNII-XII intact, moves all extremities Results - Labs CBC & Chem 7: 03/11/18 06:44 03/11/18 06:44 Labs: Laboratory Last Values WBC 20.4 K/mm3 (4.5-11.0) H 03/11/18 06:44 RBC 3.63 M/mm3 (3.65-5.03) L 03/11/18 06:44 Hgb 10.6 gm/dl (10.1-14.3) 03/11/18 06:44 Hct 31.7 % (30.3-42.9) 03/11/18 06:44 MCV 87 fl (79-97) 03/11/18 06:44 MCH 29 pg (28-32) 03/11/18 06:44 MCHC 33 % (30-34) 03/11/18 06:44 RDW 15.0 % (13.2-15.2) 03/11/18 06:44 Plt Count 445 K/mm3 (140-440) H 03/11/18 06:44 Lymph % (Auto) 13.6 % (13.4-35.0) 03/08/18 05:08 [place] % (Auto) 9.5 % (0.0-7.3) H 03/08/18 05:08 Eos % (Auto) 0.5 % (0.0-4.3) 03/08/18 05:08 Baso % (Auto) 0.2 % (0.0-1.8) 03/08/18 05:08 Lymph # 1.7 K/mm3 (1.2-5.4) 03/08/18 05:08 [place] # 1.2 K/mm3 (0.0-0.8) H 03/08/18 05:08 Eos # 0.1 K/mm3 (0.0-0.4) 03/08/18 05:08 Baso # 0.0 K/mm3 (0.0-0.1) 03/08/18 05:08 Add Manual Diff Complete 03/11/18 06:44 Total Counted 100 03/11/18 06:44 Seg Neutrophils % 76.2 % (40.0-70.0) H 03/08/18 05:08 Seg Neuts % (Manual) 76.0 % (40.0-70.0) H 03/11/18 06:44 Band Neutrophils % 3.0 % 03/11/18 06:44 Lymphocytes % (Manual) 13.0 % (13.4-35.0) L 03/11/18 06:44 Reactive Lymphs % (Man) 0 % 03/11/18 06:44 Monocytes % (Manual) 7.0 % (0.0-7.3) 03/11/18 06:44 Eosinophils % (Manual) 0 % (0.0-4.3) 03/11/18 06:44 Basophils % (Manual) 1.0 % (0.0-1.8) 03/11/18 06:44 Metamyelocytes % 0 % 03/11/18 06:44 Myelocytes % 0 % 03/11/18 06:44 Promyelocytes % 0 % 03/11/18 06:44 Blast Cells % 0 % 03/11/18 06:44 Nucleated RBC % Not Reportable 03/11/18 06:44 Seg Neutrophils # 9.6 K/mm3 (1.8-7.7) H 03/08/18 05:08 Seg Neutrophils # Man 15.5 K/mm3 (1.8-7.7) H 03/11/18 06:44 Band Neutrophils # 0.6 K/mm3 03/11/18 06:44 Lymphocytes # (Manual) 2.7 K/mm3 (1.2-5.4) 03/11/18 06:44 Abs React Lymphs (Man) 0.0 K/mm3 03/11/18 06:44 Monocytes # (Manual) 1.4 K/mm3 (0.0-0.8) H 03/11/18 06:44 Eosinophils # (Manual) 0.0 K/mm3 (0.0-0.4) 03/11/18 06:44 Basophils # (Manual) 0.2 K/mm3 (0.0-0.1) H 03/11/18 06:44 Metamyelocytes # 0.0 K/mm3 03/11/18 06:44 Myelocytes # 0.0 K/mm3 03/11/18 06:44 Promyelocytes # 0.0 K/mm3 03/11/18 06:44 Blast Cells # 0.0 K/mm3 03/11/18 06:44 WBC Morphology Not Reportable 03/11/18 06:44 Hypersegmented Neuts Rare 03/11/18 06:44 Hyposegmented Neuts Not Reportable 03/11/18 06:44 Hypogranular Neuts Not Reportable 03/11/18 06:44 Smudge Cells Not Reportable 03/11/18 06:44 Toxic Granulation Not Reportable 03/11/18 06:44 Toxic Vacuolation Not Reportable 03/11/18 06:44 Dohle Bodies Not Reportable 03/11/18 06:44 Pelger-Huet Anomaly Not Reportable 03/11/18 06:44 Yoni Rods Not Reportable 03/11/18 06:44 Platelet Estimate Cons 03/11/18 06:44 Clumped Platelets Not Reportable 03/11/18 06:44 Plt Clumps, EDTA Not Reportable 03/11/18 06:44 Large Platelets Not Reportable 03/11/18 06:44 Giant Platelets Not Reportable 03/11/18 06:44 Platelet Satelliting Not Reportable 03/11/18 06:44 Plt Morphology Comment Not Reportable 03/11/18 06:44 RBC Morphology Normal 03/11/18 06:44 Dimorphic RBCs Not Reportable 03/11/18 06:44 Polychromasia Not Reportable 03/11/18 06:44 Hypochromasia Not Reportable 03/11/18 06:44 Poikilocytosis Not Reportable 03/11/18 06:44 Anisocytosis Not Reportable 03/11/18 06:44 Microcytosis Not Reportable 03/11/18 06:44 Macrocytosis Not Reportable 03/11/18 06:44 Spherocytes Not Reportable 03/11/18 06:44 Pappenheimer Bodies Not Reportable 03/11/18 06:44 Sickle Cells Not Reportable 03/11/18 06:44 Target Cells Not Reportable 03/11/18 06:44 Tear Drop Cells Not Reportable 03/11/18 06:44 Ovalocytes Not Reportable 03/11/18 06:44 Helmet Cells Not Reportable 03/11/18 06:44 [place] Bodies Not Reportable 03/11/18 06:44 [place] Rings Not Reportable 03/11/18 06:44 Marie Cells Not Reportable 03/11/18 06:44 Bite Cells Not Reportable 03/11/18 06:44 Crenated Cell Not Reportable 03/11/18 06:44 Elliptocytes Not Reportable 03/11/18 06:44 Acanthocytes (Spur) Not Reportable 03/11/18 06:44 Rouleaux Not Reportable 03/11/18 06:44 Hemoglobin C Crystals Not Reportable 03/11/18 06:44 Schistocytes Not Reportable 03/11/18 06:44 Malaria parasites Not Reportable 03/11/18 06:44 Canelo Bodies Not Reportable 03/11/18 06:44 Hem Pathologist Commnt No 03/11/18 06:44 PT 12.9 Sec. (12.2-14.9) 03/06/18 23:22 INR 0.93 (0.87-1.13) 03/06/18 23:22 VBG pH 7.371 (7.320-7.420) 03/06/18 23:37 Sodium 135 mmol/L (137-145) L 03/11/18 06:44 Potassium 4.0 mmol/L (3.6-5.0) 03/11/18 06:44 Chloride 98.4 mmol/L (98-107) 03/11/18 06:44 Carbon Dioxide 22 mmol/L (22-30) 03/11/18 06:44 Anion Gap 19 mmol/L 03/11/18 06:44 BUN 5 mg/dL (7-17) L 03/11/18 06:44 Creatinine 0.4 mg/dL (0.7-1.2) L 03/11/18 06:44 Estimated GFR > 60 ml/min 03/11/18 06:44 BUN/Creatinine Ratio 13 % 03/11/18 06:44 Glucose 102 mg/dL (65-100) H 03/11/18 06:44 POC Glucose 123 (70-105) H 03/09/18 20:55 Lactic Acid 1.40 mmol/L (0.7-2.0) 03/07/18 13:34 Calcium 8.0 mg/dL (8.4-10.2) L 03/11/18 06:44 Magnesium 1.80 mg/dL (1.7-2.3) 03/07/18 Unknown Total Bilirubin 0.90 mg/dL (0.1-1.2) 03/10/18 05:20 AST 13 units/L (5-40) 03/10/18 05:20 ALT 21 units/L (7-56) 03/10/18 05:20 Alkaline Phosphatase 177 units/L (35-129) H 03/10/18 05:20 Total Creatine Kinase 23 units/L (30-135) L 03/07/18 09:14 CK-MB (CK-2) < 1.0 ng/mL (0.0-4.0) 03/07/18 09:14 CK-MB (CK-2) Rel Index 4.3 (0-4) H 03/07/18 09:14 Troponin T < 0.010 ng/mL (0.00-0.029) 03/07/18 09:14 Total Protein 7.2 g/dL (6.3-8.2) 03/10/18 05:20 Albumin 2.7 g/dL (3.9-5) L 03/10/18 05:20 Albumin/Globulin Ratio 0.6 % 03/10/18 05:20 Urine Color Joanna (Yellow) 03/06/18 00:46 Urine Turbidity Slightly-cloudy (Clear) 03/06/18 00:46 Urine pH 5.0 (5.0-7.0) 03/06/18 00:46 Ur Specific [place] 1.024 (1.003-1.030) 03/06/18 00:46 Urine Protein 100 mg/dl mg/dL (Negative) 03/06/18 00:46 Urine Glucose (UA) Neg mg/dL (Negative) 03/06/18 00:46 Urine Ketones Neg mg/dL (Negative) 03/06/18 00:46 Urine Blood Lg (Negative) 03/06/18 00:46 Urine Nitrite Neg (Negative) 03/06/18 00:46 Urine Bilirubin Neg (Negative) 03/06/18 00:46 Urine Urobilinogen 2.0 mg/dL (<2.0) 03/06/18 00:46 Ur Leukocyte Esterase Neg (Negative) 03/06/18 00:46 Urine WBC (Auto) 5.0 /HPF (0.0-6.0) 03/06/18 00:46 Urine RBC (Auto) > 182.0 /HPF (0.0-6.0) 03/06/18 00:46 U Epithel Cells (Auto) 5.0 /HPF (0-13.0) 03/06/18 00:46 Urine Mucus Few /HPF 03/06/18 00:46 Vancomycin Trough 4.5 ug/mL (5.0-20.0) L 03/10/18 05:20 Urine Opiates Screen Presumptive negative 03/07/18 04:35 Urine Methadone Screen Presumptive negative 03/07/18 04:35 Ur Barbiturates Screen Presumptive negative 03/07/18 04:35 Ur Phencyclidine Scrn Presumptive negative 03/07/18 04:35 Ur Amphetamines Screen Presumptive negative 03/07/18 04:35 U Benzodiazepines Scrn Presumptive negative 03/07/18 04:35 Urine Cocaine Screen Presumptive negative 03/07/18 04:35 U Marijuana (THC) Screen Presumptive negative 03/07/18 04:35 Drugs of Abuse Note Disclamer 03/07/18 04:35 Hep Bs Antigen Non-reactive (Negative) 03/07/18 23:01 Hep B Core Total Ab Nonreactive (Nonreactive) 03/07/18 23:01 Hepatitis C Antibody Non-reactive (NonReactive) 03/07/18 23:01 HIV 1&2 Antibody Rapid Non react (Non React) 03/10/18 12:50 HIV P24 Antigen Non react (Non React) 03/10/18 12:50
[2018-03-11] MEDS: ELIQUIS PO SCH ×2 (11:30→22:28)
[2018-03-11] MEDS: SODIUM CHLORIDE FLUSH SYRINGE 10 ML IV SCH ×2 (11:30→22:00)
--- NOTE | 2018-03-11 14:38 | Progress Note ---
Assessment and Plan Cultures: 03/06/2018 blood culture: One out of 4 bottles positive for MRSA 03/07/2018 Blood culture: no growth A/P: 37-year-old female with hypertension, anxiety disorder, IVDU admitted with: 1) Sepsis, present on admission: Patient with fevers, leukocytosis, tachycardia and tachypnea. Source is MRSA bacteremia and bilateral pneumonia. 2) MRSA bacteremia with bilateral pneumonia: No evidence of septic thrombophlebitis of left lower extremity on exam. Patient does have a history of IVDU, although denies active IVDU. Bilateral pneumonia, also a nodular infiltrate seen on the right side which could correspond to a septic embolus. Will eval for endocarditis with CHANCE, since TTE images were sub-optimal. Given back pain, will order MRI thoraco-lumbar spine to eval for discitis/ osteomyelitis. Due to vancomycin TY being 2.0 and rising WBC, a heteroresistant strain is possible, will switch to IV Ceftaroline (non formulary ) when available. Will do 600 mg q8 hrs as a high dose due to bacteremia. Daptomycin is not an option due to pneumonia. Zyvox is a bacteriostatic drug and hence not optimal. 3) IVDU: Hepatitis B, C screens negative. Recommendations: Discontinued Vancomycin Started Ceftaroline 600 mg q8 hrs Follow up CHANCE Awaiting MRI thoraco-lumbar spine to eval for discitis/osteomyelitis and epidural abscess Plan discussed with Dr. Aysha Samano from pharmacy to get Ceftaroline started. Please call with questions. Will follow along. Jessica Benson MD [facility] C: [phone] O: [phone] F: [phone] Subjective Date of service: 03/11/18 Principal diagnosis: MRSA bacteremia Interval history: Continues to spike fevers. Upper back pain still present, hasn't gotten MRI done yet. No diarrhea. Anxious. Objective - Exam Narrative Exam: Physical Exam: Constitutional: Alert, cooperative. moderate distress due to pain Head, Ears, Nose: Normocephalic, atraumatic. External ears, nose normal Eyes: Conjunctivae/corneas clear. No icterus. Neck: Supple, no meningeal signs Oral: edentulous, mucosa moist. Cardiovascular: S1, S2 normal, tachycardia + Respiratory: left basal crackles, unable to take a deep breath, no wheeze GI: Soft, non-tender; bowel sounds normal. No peritoneal signs Musculoskeletal: No pedal edema, no cyanosis. Mild right and left upper paraspinal tenderness Skin: No rash or abscess, livedo type rash on both legs Hem/Lymphatic: No palpable cervical or supraclavicular nodes. No lymphangitis Psych: Mood anxious. Affect normal Neurological: Awake, alert, oriented. No gross abnormality - Constitutional Vitals: Vital Signs Temp Pulse Resp BP Pulse Ox 98.2 F 97 H 18 110/81 91 03/11/18 12:36 03/11/18 14:22 03/11/18 14:22 03/11/18 12:36 03/11/18 12:36 Temperature -Last 24 Hours Temperature 98.2 F Temperature 99.9 F Temperature 102.1 F Temperature 98.9 F Temperature 100.3 F Temperature 98.8 F - Labs CBC & Chem 7: 03/11/18 06:44 03/11/18 06:44 Labs: Abnormal lab results 03/11/18 03/11/18 Range/Units 06:44 06:44 WBC 20.4 H (4.5-11.0) K/mm3 RBC 3.63 L (3.65-5.03) M/mm3 Plt Count 445 H (140-440) K/mm3 Seg Neuts % (Manual) 76.0 H (40.0-70.0) % Lymphocytes % (Manual) 13.0 L (13.4-35.0) % Seg Neutrophils # Man 15.5 H (1.8-7.7) K/mm3 Monocytes # (Manual) 1.4 H (0.0-0.8) K/mm3 Basophils # (Manual) 0.2 H (0.0-0.1) K/mm3 Sodium 135 L (137-145) mmol/L BUN 5 L (7-17) mg/dL Creatinine 0.4 L (0.7-1.2) mg/dL Glucose 102 H (65-100) mg/dL Calcium 8.0 L (8.4-10.2) mg/dL
[2018-03-11] MEDS: NACL 0.9% IV SCH ×2 (22:41→22:42)
[2018-03-11] MEDS: TEFLARO IV SCH ×2 (22:41→22:42)
[2018-03-12] MEDS: PERCOCET 5/325 PO PRN (06:38)
[2018-03-12] MEDS: TEFLARO IV SCH ×3 (06:40→23:19)
[2018-03-12] MEDS: NACL 0.9% IV SCH ×3 (06:40→23:19)
[2018-03-12 07:23] LABS: Hematocrit 30.7 % (30.3-42.9); Hemoglobin 10.4 gm/dl (10.1-14.3); Mean Corpuscular HGB Conc 34 % (30-34); Mean Corpuscular Hemoglobin 30 pg (28-32); Mean Corpuscular Volume 88 fl (79-97); Platelet Count 568 K/mm3 (140-440); Red Blood Count 3.48 M/mm3 (3.65-5.03); Red Cell Distribution Width 15.3 % (13.2-15.2)
[2018-03-12 07:39] LABS: BUN/Creatinine Ratio 13; Blood Urea Nitrogen 5 mg/dL (7-17); Calcium 8.3 mg/dL (8.4-10.2); Hemolysis Index 6
[2018-03-12] MEDS: DUONEB *Not for PRN Use IH SCH ×3 (08:00→22:15)
[2018-03-12] MEDS ORDERED: HURRICAINE ONE 20% TOPICAL SPRAY MM NR (08:00)
[2018-03-12 09:19] LABS: Band Neutrophils # (Manual) 0.6 K/mm3; Basophils % (Manual) 0 % (0.0-1.8); Eosinophils % (Manual) 0.5 % (0.0-4.3); Total Cells Counted 200
[2018-03-12 09:20] LABS: Giant Platelets Rare; Large Platelets Few
[2018-03-12 09:21] LABS: Platelet Estimate Cons; RBC Morphology Normal
[2018-03-12] MEDS: MORPHINE IV PRN ×3 (10:49→20:15)
[2018-03-12] MEDS: SODIUM CHLORIDE FLUSH SYRINGE 10 ML IV SCH ×2 (10:50→23:28)
--- NOTE | 2018-03-12 10:53 | Progress Note ---
Assessment and Plan Assessment and plan: Sepsis. - Patient with MRSA bacteremia and bilateral pneumonia. - ID following. Continue antibiotics per recommendations-- IV Ceftaroline - MRI of the spine to R/O discitis, abscess MRSA bacteremia. Continue antibiotics per ID. - Blood culture grew MRSA, contact isolation, echo showed no vegetation, repeat blood culture is negative Bilateral pneumonia. - CT chest showed pneumonia, a nodular infiltrate seen on the right side which could correspond to a septic embolus - TTE was normal, given her history IVDU patient will have CHANCE History IVDU. - Hepatitis B, C screens negative. Anxiety disorder - Continue Xanax when necessary Pleuritic chest pain - Likely due to pneumonia - Pain control DVT prophylaxis - Continue eliquis Disposition - Continue inpatient care History Interval history: 37-year-old female with past medical history significant for hypertension, IV drug abuse, superficial venous thrombosis presented to the emergency department complaining of pleuritic left-sided chest pain. Patient had fever and elevated lactic acid and leukocytosis on admission which persists at this time. Hospitalist Physical - Constitutional Vitals: Temp Pulse Resp BP Pulse Ox 97.8 F 112 H 18 132/81 91 03/12/18 08:18 03/12/18 08:18 03/12/18 08:18 03/12/18 08:18 03/12/18 08:18 General appearance: Present: no acute distress - EENT Eyes: Present: PERRL, EOM intact ENT: hearing intact, clear oral mucosa, dentition normal - Neck Neck: Present: supple, normal ROM - Respiratory Respiratory effort: normal Respiratory: bilateral: CTA - Cardiovascular Rhythm: regular Heart Sounds: Present: S1 & S2. Absent: gallop, rub - Extremities Extremities: no ischemia, No edema, Full ROM - Abdominal General gastrointestinal: soft, non-tender, non-distended, normal bowel sounds - Integumentary Integumentary: Present: clear, warm, dry - Neurologic Neurologic: CNII-XII intact, moves all extremities Results - Labs CBC & Chem 7: 03/12/18 07:07 03/12/18 07:07 Labs: Laboratory Last Values WBC 25.3 K/mm3 (4.5-11.0) H 03/12/18 07:07 RBC 3.48 M/mm3 (3.65-5.03) L 03/12/18 07:07 Hgb 10.4 gm/dl (10.1-14.3) 03/12/18 07:07 Hct 30.7 % (30.3-42.9) 03/12/18 07:07 MCV 88 fl (79-97) 03/12/18 07:07 MCH 30 pg (28-32) 03/12/18 07:07 MCHC 34 % (30-34) 03/12/18 07:07 RDW 15.3 % (13.2-15.2) H 03/12/18 07:07 Plt Count 568 K/mm3 (140-440) H 03/12/18 07:07 Lymph % (Auto) 13.6 % (13.4-35.0) 03/08/18 05:08 [place] % (Auto) 9.5 % (0.0-7.3) H 03/08/18 05:08 Eos % (Auto) 0.5 % (0.0-4.3) 03/08/18 05:08 Baso % (Auto) 0.2 % (0.0-1.8) 03/08/18 05:08 Lymph # 1.7 K/mm3 (1.2-5.4) 03/08/18 05:08 [place] # 1.2 K/mm3 (0.0-0.8) H 03/08/18 05:08 Eos # 0.1 K/mm3 (0.0-0.4) 03/08/18 05:08 Baso # 0.0 K/mm3 (0.0-0.1) 03/08/18 05:08 Add Manual Diff Complete 03/12/18 07:07 Total Counted 200 03/12/18 07:07 Seg Neutrophils % 76.2 % (40.0-70.0) H 03/08/18 05:08 Seg Neuts % (Manual) 72.0 % (40.0-70.0) H 03/12/18 07:07 Band Neutrophils % 2.5 % 03/12/18 07:07 Lymphocytes % (Manual) 17.5 % (13.4-35.0) 03/12/18 07:07 Reactive Lymphs % (Man) 0 % 03/12/18 07:07 Monocytes % (Manual) 6.0 % (0.0-7.3) 03/12/18 07:07 Eosinophils % (Manual) 0.5 % (0.0-4.3) 03/12/18 07:07 Basophils % (Manual) 0 % (0.0-1.8) 03/12/18 07:07 Metamyelocytes % 1.5 % 03/12/18 07:07 Myelocytes % 0 % 03/12/18 07:07 Promyelocytes % 0 % 03/12/18 07:07 Blast Cells % 0 % 03/12/18 07:07 Nucleated RBC % Not Reportable 03/12/18 07:07 Seg Neutrophils # 9.6 K/mm3 (1.8-7.7) H 03/08/18 05:08 Seg Neutrophils # Man 18.2 K/mm3 (1.8-7.7) H 03/12/18 07:07 Band Neutrophils # 0.6 K/mm3 03/12/18 07:07 Lymphocytes # (Manual) 4.4 K/mm3 (1.2-5.4) 03/12/18 07:07 Abs React Lymphs (Man) 0.0 K/mm3 03/12/18 07:07 Monocytes # (Manual) 1.5 K/mm3 (0.0-0.8) H 03/12/18 07:07 Eosinophils # (Manual) 0.1 K/mm3 (0.0-0.4) 03/12/18 07:07 Basophils # (Manual) 0.0 K/mm3 (0.0-0.1) 03/12/18 07:07 Metamyelocytes # 0.4 K/mm3 03/12/18 07:07 Myelocytes # 0.0 K/mm3 03/12/18 07:07 Promyelocytes # 0.0 K/mm3 03/12/18 07:07 Blast Cells # 0.0 K/mm3 03/12/18 07:07 WBC Morphology Not Reportable 03/12/18 07:07 Hypersegmented Neuts Not Reportable 03/12/18 07:07 Hyposegmented Neuts Not Reportable 03/12/18 07:07 Hypogranular Neuts Not Reportable 03/12/18 07:07 Smudge Cells Not Reportable 03/12/18 07:07 Toxic Granulation Not Reportable 03/12/18 07:07 Toxic Vacuolation Not Reportable 03/12/18 07:07 Dohle Bodies Not Reportable 03/12/18 07:07 Pelger-Huet Anomaly Not Reportable 03/12/18 07:07 Yoni Rods Not Reportable 03/12/18 07:07 Platelet Estimate Cons 03/12/18 07:07 Clumped Platelets Not Reportable 03/12/18 07:07 Plt Clumps, EDTA Not Reportable 03/12/18 07:07 Large Platelets Few 03/12/18 07:07 Giant Platelets Rare 03/12/18 07:07 Platelet Satelliting Not Reportable 03/12/18 07:07 Plt Morphology Comment Not Reportable 03/12/18 07:07 RBC Morphology Normal 03/12/18 07:07 Dimorphic RBCs Not Reportable 03/12/18 07:07 Polychromasia Not Reportable 03/12/18 07:07 Hypochromasia Not Reportable 03/12/18 07:07 Poikilocytosis Not Reportable 03/12/18 07:07 Anisocytosis Not Reportable 03/12/18 07:07 Microcytosis Not Reportable 03/12/18 07:07 Macrocytosis Not Reportable 03/12/18 07:07 Spherocytes Not Reportable 03/12/18 07:07 Pappenheimer Bodies Not Reportable 03/12/18 07:07 Sickle Cells Not Reportable 03/12/18 07:07 Target Cells Not Reportable 03/12/18 07:07 Tear Drop Cells Not Reportable 03/12/18 07:07 Ovalocytes Not Reportable 03/12/18 07:07 Helmet Cells Not Reportable 03/12/18 07:07 [place] Bodies Not Reportable 03/12/18 07:07 [place] Rings Not Reportable 03/12/18 07:07 Marie Cells Not Reportable 03/12/18 07:07 Bite Cells Not Reportable 03/12/18 07:07 Crenated Cell Not Reportable 03/12/18 07:07 Elliptocytes Not Reportable 03/12/18 07:07 Acanthocytes (Spur) Not Reportable 03/12/18 07:07 Rouleaux Not Reportable 03/12/18 07:07 Hemoglobin C Crystals Not Reportable 03/12/18 07:07 Schistocytes Not Reportable 03/12/18 07:07 Malaria parasites Not Reportable 03/12/18 07:07 Canelo Bodies Not Reportable 03/12/18 07:07 Hem Pathologist Commnt No 03/12/18 07:07 PT 12.9 Sec. (12.2-14.9) 03/06/18 23:22 INR 0.93 (0.87-1.13) 03/06/18 23:22 VBG pH 7.371 (7.320-7.420) 03/06/18 23:37 Sodium 135 mmol/L (137-145) L 03/12/18 07:07 Potassium 3.9 mmol/L (3.6-5.0) 03/12/18 07:07 Chloride 96.5 mmol/L (98-107) L 03/12/18 07:07 Carbon Dioxide 25 mmol/L (22-30) 03/12/18 07:07 Anion Gap 17 mmol/L 03/12/18 07:07 BUN 5 mg/dL (7-17) L 03/12/18 07:07 Creatinine 0.4 mg/dL (0.7-1.2) L 03/12/18 07:07 Estimated GFR > 60 ml/min 03/12/18 07:07 BUN/Creatinine Ratio 13 % 03/12/18 07:07 Glucose 94 mg/dL (65-100) 03/12/18 07:07 POC Glucose 123 (70-105) H 03/09/18 20:55 Lactic Acid 1.40 mmol/L (0.7-2.0) 03/07/18 13:34 Calcium 8.3 mg/dL (8.4-10.2) L 03/12/18 07:07 Magnesium 1.80 mg/dL (1.7-2.3) 03/07/18 Unknown Total Bilirubin 0.90 mg/dL (0.1-1.2) 03/10/18 05:20 AST 13 units/L (5-40) 03/10/18 05:20 ALT 21 units/L (7-56) 03/10/18 05:20 Alkaline Phosphatase 177 units/L (35-129) H 03/10/18 05:20 Total Creatine Kinase 23 units/L (30-135) L 03/07/18 09:14 CK-MB (CK-2) < 1.0 ng/mL (0.0-4.0) 03/07/18 09:14 CK-MB (CK-2) Rel Index 4.3 (0-4) H 03/07/18 09:14 Troponin T < 0.010 ng/mL (0.00-0.029) 03/07/18 09:14 Total Protein 7.2 g/dL (6.3-8.2) 03/10/18 05:20 Albumin 2.7 g/dL (3.9-5) L 03/10/18 05:20 Albumin/Globulin Ratio 0.6 % 03/10/18 05:20 Urine Color Joanna (Yellow) 03/06/18 00:46 Urine Turbidity Slightly-cloudy (Clear) 03/06/18 00:46 Urine pH 5.0 (5.0-7.0) 03/06/18 00:46 Ur Specific [place] 1.024 (1.003-1.030) 03/06/18 00:46 Urine Protein 100 mg/dl mg/dL (Negative) 03/06/18 00:46 Urine Glucose (UA) Neg mg/dL (Negative) 03/06/18 00:46 Urine Ketones Neg mg/dL (Negative) 03/06/18 00:46 Urine Blood Lg (Negative) 03/06/18 00:46 Urine Nitrite Neg (Negative) 03/06/18 00:46 Urine Bilirubin Neg (Negative) 03/06/18 00:46 Urine Urobilinogen 2.0 mg/dL (<2.0) 03/06/18 00:46 Ur Leukocyte Esterase Neg (Negative) 03/06/18 00:46 Urine WBC (Auto) 5.0 /HPF (0.0-6.0) 03/06/18 00:46 Urine RBC (Auto) > 182.0 /HPF (0.0-6.0) 03/06/18 00:46 U Epithel Cells (Auto) 5.0 /HPF (0-13.0) 03/06/18 00:46 Urine Mucus Few /HPF 03/06/18 00:46 Vancomycin Trough 4.5 ug/mL (5.0-20.0) L 03/10/18 05:20 Urine Opiates Screen Presumptive negative 03/07/18 04:35 Urine Methadone Screen Presumptive negative 03/07/18 04:35 Ur Barbiturates Screen Presumptive negative 03/07/18 04:35 Ur Phencyclidine Scrn Presumptive negative 03/07/18 04:35 Ur Amphetamines Screen Presumptive negative 03/07/18 04:35 U Benzodiazepines Scrn Presumptive negative 03/07/18 04:35 Urine Cocaine Screen Presumptive negative 03/07/18 04:35 U Marijuana (THC) Screen Presumptive negative 03/07/18 04:35 Drugs of Abuse Note Disclamer 03/07/18 04:35 Hep Bs Antigen Non-reactive (Negative) 03/07/18 23:01 Hep B Core Total Ab Nonreactive (Nonreactive) 03/07/18 23:01 Hepatitis C Antibody Non-reactive (NonReactive) 03/07/18 23:01 HIV 1&2 Antibody Rapid Non react (Non React) 03/10/18 12:50 HIV P24 Antigen Non react (Non React) 03/10/18 12:50
--- NOTE | 2018-03-12 12:39 | Progress Note ---
Assessment and Plan Sepsis MRSA bateremia Pneumonia Severe back pain Chest pain, atypical Recent dx of Superficial venous thrombosis on eliquis for oral anticoagulation therapy. Recommendations: Reschedule for CHANCE on Saturday after IV access is established Subjective Date of service: 03/12/18 Principal diagnosis: MRSA bacteremia Interval history: CHANCE not performed today due to lack of IV access Objective Vital Signs Temp Pulse Pulse Pulse Resp Resp Resp 03/12/18 08:18 97.8 F 112 H 18 03/12/18 04:46 98.7 F 117 H 18 03/12/18 00:09 116 H 18 03/11/18 22:00 114 H 03/11/18 21:35 99.0 F 121 H 17 03/11/18 20:24 20 03/11/18 20:07 99.0 F 18 03/11/18 20:06 99.0 F 18 03/11/18 16:36 98.7 F 111 H 20 03/11/18 14:22 97 H 100 H 18 18 BP BP Pulse Ox 03/12/18 08:18 132/81 91 03/12/18 04:46 113/81 92 03/12/18 00:09 128/84 89 03/11/18 22:00 03/11/18 21:35 136/97 89 03/11/18 20:24 03/11/18 20:07 03/11/18 20:06 136/97 03/11/18 16:36 149/87 91 03/11/18 14:22 - Physical Examination General: No Apparent Distress HEENT: Positive: PERRL Neck: Positive: neck supple Cardiac: Positive: Reg Rate and Rhythm Lungs: Positive: Normal Exam Neuro: Positive: Grossly Intact Abdomen: Positive: Soft Skin: Positive: Clear Extremities: Absent: edema - Labs and Meds CBC 03/12/18 Range/Units 07:07 WBC 25.3 H (4.5-11.0) K/mm3 RBC 3.48 L (3.65-5.03) M/mm3 Hgb 10.4 (10.1-14.3) gm/dl Hct 30.7 (30.3-42.9) % Plt Count 568 H (140-440) K/mm3 Comprehensive Metabolic Panel 03/12/18 Range/Units 07:07 Sodium 135 L (137-145) mmol/L Potassium 3.9 (3.6-5.0) mmol/L Chloride 96.5 L (98-107) mmol/L Carbon Dioxide 25 (22-30) mmol/L BUN 5 L (7-17) mg/dL Creatinine 0.4 L (0.7-1.2) mg/dL Glucose 94 (65-100) mg/dL Calcium 8.3 L (8.4-10.2) mg/dL
--- NOTE | 2018-03-12 15:37 | Progress Note ---
Assessment and Plan Cultures: 03/06/2018 blood culture: One out of 4 bottles positive for MRSA 03/07/2018 Blood culture: no growth A/P: 37-year-old female with hypertension, anxiety disorder, IVDU admitted with: 1) Sepsis, present on admission: Patient with fevers, leukocytosis, tachycardia and tachypnea. Source is MRSA bacteremia and bilateral pneumonia. 2) MRSA bacteremia with bilateral pneumonia: No evidence of septic thrombophlebitis of left lower extremity on exam. Patient does have a history of IVDU, although denies active IVDU. Bilateral pneumonia, also a nodular infiltrate seen on the right side which could correspond to a septic embolus. Will eval for endocarditis with CHANCE, since TTE images were sub-optimal. Given back pain, will order MRI thoraco-lumbar spine to eval for discitis/ osteomyelitis. Due to vancomycin TY being 2.0 and rising WBC, a heteroresistant strain is possible, will switch to IV Ceftaroline (non formulary ) when available. Will do 600 mg q8 hrs as a high dose due to bacteremia. Daptomycin is not an option due to pneumonia. Zyvox is a bacteriostatic drug and hence not optimal. 3) IVDU: Hepatitis B, C screens negative. Recommendations: Discontinued Vancomycin Continue Ceftaroline 600 mg q8 hrs Follow up CHANCE Awaiting MRI thoraco-lumbar spine to eval for discitis/osteomyelitis and epidural abscess [facility] M: [phone] O:[phone] Subjective Date of service: 03/12/18 Principal diagnosis: MRSA bacteremia Interval history: Patient was seen and examined today. Patient stated that she had a headache and neck pain/stiffness, unrelieved by pain medication. Patient denies SOB or N /V. Current Antimicrboials: Ceftaroline Fosamil Previous Antimicrobials: Objective - Exam Narrative Exam: Constitutional: Alert, cooperative. c/o neck and head pain Head, Ears, Nose: Normocephalic, atraumatic. External ears, nose normal Eyes: Conjunctivae/corneas clear. No icterus. Neck: Supple, no meningeal signs Oral: edentulous, mucosa moist. Cardiovascular: S1, S2 normal, tachycardia + Respiratory: bilateral crackles throughout GI: Soft, non-tender; bowel sounds normal. No peritoneal signs Musculoskeletal: No pedal edema, no cyanosis. Mild right and left upper paraspinal tenderness Skin: No rash or abscess, livedo type rash on both legs Hem/Lymphatic: No palpable cervical or supraclavicular nodes. No lymphangitis Psych: Mood ok, Affect normal Neurological: Awake, alert, oriented. No gross abnormality - Constitutional Vitals: Vital Signs Temp Pulse Resp BP Pulse Ox 98.8 F 81 18 128/82 92 03/12/18 12:54 03/12/18 12:54 03/12/18 12:54 03/12/18 12:54 03/12/18 12:54 Temperature -Last 24 Hours Temperature 98.8 F Temperature 97.8 F Temperature 98.7 F Temperature 99.0 F Temperature 99.0 F Temperature 99.0 F Temperature 98.7 F - Labs CBC & Chem 7: 03/12/18 07:07 03/12/18 07:07 Labs: Abnormal lab results 03/12/18 03/12/18 Range/Units 07:07 07:07 WBC 25.3 H (4.5-11.0) K/mm3 RBC 3.48 L (3.65-5.03) M/mm3 RDW 15.3 H (13.2-15.2) % Plt Count 568 H (140-440) K/mm3 Seg Neuts % (Manual) 72.0 H (40.0-70.0) % Seg Neutrophils # Man 18.2 H (1.8-7.7) K/mm3 Monocytes # (Manual) 1.5 H (0.0-0.8) K/mm3 Sodium 135 L (137-145) mmol/L Chloride 96.5 L (98-107) mmol/L BUN 5 L (7-17) mg/dL Creatinine 0.4 L (0.7-1.2) mg/dL Calcium 8.3 L (8.4-10.2) mg/dL
[2018-03-12] MEDS: ELIQUIS PO SCH ×2 (18:29→23:18)
[2018-03-12] MEDS: MIRALAX 3350 PO SCH ×2 (18:29→23:27)
[2018-03-12] MEDS: XANAX PO PRN (23:19)
[2018-03-13] MEDS: MORPHINE IV PRN ×5 (00:26→23:11)
[2018-03-13] MEDS: NACL 0.9% IV SCH ×3 (06:07→21:19)
[2018-03-13] MEDS: TEFLARO IV SCH ×3 (06:07→21:19)
[2018-03-13 07:12] LABS: Hematocrit 29.6 % (30.3-42.9); Hemoglobin 9.7 gm/dl (10.1-14.3); Mean Corpuscular HGB Conc 33 % (30-34); Mean Corpuscular Hemoglobin 29 pg (28-32); Mean Corpuscular Volume 88 fl (79-97); Platelet Count 671 K/mm3 (140-440); Red Blood Count 3.38 M/mm3 (3.65-5.03); Red Cell Distribution Width 14.9 % (13.2-15.2)
[2018-03-13 07:29] LABS: BUN/Creatinine Ratio 15; Blood Urea Nitrogen 6 mg/dL (7-17); Calcium 8.6 mg/dL (8.4-10.2); Hemolysis Index 0
[2018-03-13] MEDS: DUONEB *Not for PRN Use IH SCH ×4 (07:36→20:00)
[2018-03-13] MEDS: NACL 0.45% 1000 ML 1,000 ML IV SCH (08:32)
[2018-03-13 09:05] LABS: Band Neutrophils # (Manual) 0.2 K/mm3; Basophils % (Manual) 0 % (0.0-1.8); Eosinophils % (Manual) 0 % (0.0-4.3); Total Cells Counted 100
[2018-03-13 09:06] LABS: Anisocytosis 1+; Giant Platelets Rare; Large Platelets Few; Platelet Estimate Cons
[2018-03-13] MEDS: SODIUM CHLORIDE FLUSH SYRINGE 10 ML IV SCH ×2 (10:45→21:20)
[2018-03-13] MEDS: MIRALAX 3350 PO SCH ×2 (10:48→21:19)
[2018-03-13] MEDS: ELIQUIS PO SCH ×2 (10:48→21:19)
--- NOTE | 2018-03-13 11:44 | Progress Note ---
Assessment and Plan Cultures: 03/06/2018 blood culture: One out of 4 bottles positive for MRSA 03/07/2018 Blood culture: no growth A/P: 37-year-old female with hypertension, anxiety disorder, IVDU admitted with: 1) Sepsis, present on admission: Patient with fevers, leukocytosis, tachycardia and tachypnea. Source is MRSA bacteremia and bilateral pneumonia. 2) MRSA bacteremia with bilateral pneumonia: No evidence of septic thrombophlebitis of left lower extremity on exam. Patient does have a history of IVDU, although denies active IVDU. Bilateral pneumonia, also a nodular infiltrate seen on the right side which could correspond to a septic embolus. Will eval for endocarditis with CHANCE, since TTE images were sub-optimal. Hemoptysis during attempted MRI procedure today, unable to complete. Will order CT for possible necrotizing pneumonia and Nuclear medicine leukocyte scan to evaluate metastatic infection. Continue Ceftaroline. 3) IVDU: Hepatitis B, C screens negative Recommendations: Discontinued Vancomycin Continue Ceftaroline 600 mg q8 hrs Follow up CHANCE Follow up CT follow up leukocyte scan [facility] M: [phone] O:[phone] Subjective Date of service: 03/13/18 Principal diagnosis: MRSA bacteremia Interval history: Patient seen and examined today. Slightly agitated and confused. Continues to complain about headache. Nurses notes, labs and imaging reviewed and discussed with patient. Questions answered. Current Antimicrboials: Ceftaroline Fosamil Previous Antimicrobials: Objective - Exam Narrative Exam: Constitutional: Alert, cooperative but anxious Head, Ears, Nose: Normocephalic, atraumatic. External ears, nose normal Eyes: Conjunctivae/corneas clear. No icterus. Neck: Supple, no meningeal signs Oral: edentulous, mucosa moist. Cardiovascular: S1, S2 normal, tachycardia + Respiratory: left basal crackles auscultated. GI: Soft, non-tender; bowel sounds normal. No peritoneal signs Musculoskeletal: No pedal edema, no cyanosis. Mild right and left upper paraspinal tenderness Skin: No rash or abscess, livedo type rash on both legs Hem/Lymphatic: No palpable cervical or supraclavicular nodes. No lymphangitis Psych: Mood anxious Neurological: Awake, alert, oriented. No gross abnormality - Constitutional Vitals: Vital Signs Temp Pulse Resp BP Pulse Ox 100.0 F H 128 H 18 140/81 93 03/13/18 07:57 03/13/18 07:57 03/13/18 07:57 03/13/18 07:57 03/13/18 07:57 Temperature -Last 24 Hours Temperature 100.0 F Temperature 98.0 F Temperature 97.7 F Temperature 98.8 F - Labs CBC & Chem 7: 03/13/18 06:30 03/13/18 06:30 Labs: Abnormal lab results 03/13/18 03/13/18 03/13/18 Range/Units 06:16 06:30 06:30 WBC 20.9 H (4.5-11.0) K/mm3 RBC 3.38 L (3.65-5.03) M/mm3 Hgb 9.7 L (10.1-14.3) gm/dl Hct 29.6 L (30.3-42.9) % Plt Count 671 H (140-440) K/mm3 Seg Neuts % (Manual) 82.0 H (40.0-70.0) % Lymphocytes % (Manual) 12.0 L (13.4-35.0) % Seg Neutrophils # Man 17.1 H (1.8-7.7) K/mm3 BUN 6 L (7-17) mg/dL Creatinine 0.4 L (0.7-1.2) mg/dL Glucose 102 H (65-100) mg/dL POC Glucose 117 H (70-105)
--- NOTE | 2018-03-13 11:53 | Progress Note ---
Assessment and Plan Assessment and plan: Sepsis. - Patient with MRSA bacteremia and bilateral pneumonia. - ID following. Continue antibiotics per recommendations-- IV Ceftaroline - MRI of the spine to R/O discitis, abscess MRSA bacteremia. Continue antibiotics per ID. - Blood culture grew MRSA, contact isolation, echo showed no vegetation, repeat blood culture is negative Bilateral pneumonia. - a nodular infiltrate seen on the right side which could correspond to a septic embolus - will order CT for possible necrotizing pneumonia - TTE was normal but given her history of IVDU, she will undergo CHANCE tomorrow. Hemoptysis. - Hemopytis during attempted MRI procedure today, will order CT for possible necrotizing pneumonia and Nuclear medicine leukocyte scan to evaluate metastatic infection. History IVDU. - Hepatitis B, C screens negative. Anxiety disorder - Continue Xanax when necessary Pleuritic chest pain - Likely due to pneumonia - Pain control DVT prophylaxis - Continue eliquis Disposition - Continue inpatient care History Interval history: 37-year-old female with past medical history significant for hypertension, IV drug abuse, superficial venous thrombosis presented to the emergency department complaining of pleuritic left-sided chest pain. Patient had fever and elevated lactic acid and leukocytosis on admission which persists at this time. Hospitalist Physical - Constitutional Vitals: Temp Pulse Resp BP Pulse Ox 100.0 F H 128 H 18 140/81 93 03/13/18 07:57 03/13/18 07:57 03/13/18 07:57 03/13/18 07:57 03/13/18 07:57 General appearance: Present: no acute distress - EENT Eyes: Present: PERRL, EOM intact ENT: hearing intact, clear oral mucosa, dentition normal - Neck Neck: Present: supple, normal ROM - Respiratory Respiratory effort: normal Respiratory: bilateral: CTA - Cardiovascular Rhythm: regular Heart Sounds: Present: S1 & S2. Absent: gallop, rub - Extremities Extremities: no ischemia, No edema, Full ROM - Abdominal General gastrointestinal: soft, non-tender, non-distended, normal bowel sounds - Integumentary Integumentary: Present: clear, warm, dry - Neurologic Neurologic: CNII-XII intact, moves all extremities Results - Labs CBC & Chem 7: 03/13/18 06:30 03/13/18 06:30 Labs: Laboratory Last Values WBC 20.9 K/mm3 (4.5-11.0) H 03/13/18 06:30 RBC 3.38 M/mm3 (3.65-5.03) L 03/13/18 06:30 Hgb 9.7 gm/dl (10.1-14.3) L 03/13/18 06:30 Hct 29.6 % (30.3-42.9) L 03/13/18 06:30 MCV 88 fl (79-97) 03/13/18 06:30 MCH 29 pg (28-32) 03/13/18 06:30 MCHC 33 % (30-34) 03/13/18 06:30 RDW 14.9 % (13.2-15.2) 03/13/18 06:30 Plt Count 671 K/mm3 (140-440) H 03/13/18 06:30 Lymph % (Auto) 13.6 % (13.4-35.0) 03/08/18 05:08 [place] % (Auto) 9.5 % (0.0-7.3) H 03/08/18 05:08 Eos % (Auto) 0.5 % (0.0-4.3) 03/08/18 05:08 Baso % (Auto) 0.2 % (0.0-1.8) 03/08/18 05:08 Lymph # 1.7 K/mm3 (1.2-5.4) 03/08/18 05:08 [place] # 1.2 K/mm3 (0.0-0.8) H 03/08/18 05:08 Eos # 0.1 K/mm3 (0.0-0.4) 03/08/18 05:08 Baso # 0.0 K/mm3 (0.0-0.1) 03/08/18 05:08 Add Manual Diff Complete 03/13/18 06:30 Total Counted 100 03/13/18 06:30 Seg Neutrophils % 76.2 % (40.0-70.0) H 03/08/18 05:08 Seg Neuts % (Manual) 82.0 % (40.0-70.0) H 03/13/18 06:30 Band Neutrophils % 1.0 % 03/13/18 06:30 Lymphocytes % (Manual) 12.0 % (13.4-35.0) L 03/13/18 06:30 Reactive Lymphs % (Man) 1.0 % 03/13/18 06:30 Monocytes % (Manual) 2.0 % (0.0-7.3) 03/13/18 06:30 Eosinophils % (Manual) 0 % (0.0-4.3) 03/13/18 06:30 Basophils % (Manual) 0 % (0.0-1.8) 03/13/18 06:30 Metamyelocytes % 2.0 % 03/13/18 06:30 Myelocytes % 0 % 03/13/18 06:30 Promyelocytes % 0 % 03/13/18 06:30 Blast Cells % 0 % 03/13/18 06:30 Nucleated RBC % Not Reportable 03/13/18 06:30 Seg Neutrophils # 9.6 K/mm3 (1.8-7.7) H 03/08/18 05:08 Seg Neutrophils # Man 17.1 K/mm3 (1.8-7.7) H 03/13/18 06:30 Band Neutrophils # 0.2 K/mm3 03/13/18 06:30 Lymphocytes # (Manual) 2.5 K/mm3 (1.2-5.4) 03/13/18 06:30 Abs React Lymphs (Man) 0.2 K/mm3 03/13/18 06:30 Monocytes # (Manual) 0.4 K/mm3 (0.0-0.8) 03/13/18 06:30 Eosinophils # (Manual) 0.0 K/mm3 (0.0-0.4) 03/13/18 06:30 Basophils # (Manual) 0.0 K/mm3 (0.0-0.1) 03/13/18 06:30 Metamyelocytes # 0.4 K/mm3 03/13/18 06:30 Myelocytes # 0.0 K/mm3 03/13/18 06:30 Promyelocytes # 0.0 K/mm3 03/13/18 06:30 Blast Cells # 0.0 K/mm3 03/13/18 06:30 WBC Morphology Not Reportable 03/13/18 06:30 Hypersegmented Neuts Not Reportable 03/13/18 06:30 Hyposegmented Neuts Not Reportable 03/13/18 06:30 Hypogranular Neuts Not Reportable 03/13/18 06:30 Smudge Cells Not Reportable 03/13/18 06:30 Toxic Granulation Not Reportable 03/13/18 06:30 Toxic Vacuolation Not Reportable 03/13/18 06:30 Dohle Bodies Not Reportable 03/13/18 06:30 Pelger-Huet Anomaly Not Reportable 03/13/18 06:30 Yoni Rods Not Reportable 03/13/18 06:30 Platelet Estimate Cons 03/13/18 06:30 Clumped Platelets Not Reportable 03/13/18 06:30 Plt Clumps, EDTA Not Reportable 03/13/18 06:30 Large Platelets Few 03/13/18 06:30 Giant Platelets Rare 03/13/18 06:30 Platelet Satelliting Not Reportable 03/13/18 06:30 Plt Morphology Comment Not Reportable 03/13/18 06:30 RBC Morphology Not Reportable 03/13/18 06:30 Dimorphic RBCs Not Reportable 03/13/18 06:30 Polychromasia Not Reportable 03/13/18 06:30 Hypochromasia Not Reportable 03/13/18 06:30 Poikilocytosis Not Reportable 03/13/18 06:30 Anisocytosis 1+ 03/13/18 06:30 Microcytosis Not Reportable 03/13/18 06:30 Macrocytosis Not Reportable 03/13/18 06:30 Spherocytes Not Reportable 03/13/18 06:30 Pappenheimer Bodies Not Reportable 03/13/18 06:30 Sickle Cells Not Reportable 03/13/18 06:30 Target Cells Not Reportable 03/13/18 06:30 Tear Drop Cells Not Reportable 03/13/18 06:30 Ovalocytes Not Reportable 03/13/18 06:30 Helmet Cells Not Reportable 03/13/18 06:30 [place] Bodies Not Reportable 03/13/18 06:30 Bandera Rings Not Reportable 03/13/18 06:30 [place] Cells Not Reportable 03/13/18 06:30 Bite Cells Not Reportable 03/13/18 06:30 Crenated Cell Not Reportable 03/13/18 06:30 Elliptocytes Not Reportable 03/13/18 06:30 Acanthocytes (Spur) Not Reportable 03/13/18 06:30 Rouleaux Not Reportable 03/13/18 06:30 Hemoglobin C Crystals Not Reportable 03/13/18 06:30 Schistocytes Not Reportable 03/13/18 06:30 Malaria parasites Not Reportable 03/13/18 06:30 Canelo Bodies Not Reportable 03/13/18 06:30 Hem Pathologist Commnt No 03/13/18 06:30 PT 12.9 Sec. (12.2-14.9) 03/06/18 23:22 INR 0.93 (0.87-1.13) 03/06/18 23:22 VBG pH 7.371 (7.320-7.420) 03/06/18 23:37 Sodium 137 mmol/L (137-145) 03/13/18 06:30 Potassium 3.6 mmol/L (3.6-5.0) 03/13/18 06:30 Chloride 99.5 mmol/L (98-107) 03/13/18 06:30 Carbon Dioxide 24 mmol/L (22-30) 03/13/18 06:30 Anion Gap 17 mmol/L 03/13/18 06:30 BUN 6 mg/dL (7-17) L 03/13/18 06:30 Creatinine 0.4 mg/dL (0.7-1.2) L 03/13/18 06:30 Estimated GFR > 60 ml/min 03/13/18 06:30 BUN/Creatinine Ratio 15 % 03/13/18 06:30 Glucose 102 mg/dL (65-100) H 03/13/18 06:30 POC Glucose 117 (70-105) H 03/13/18 06:16 Lactic Acid 1.40 mmol/L (0.7-2.0) 03/07/18 13:34 Calcium 8.6 mg/dL (8.4-10.2) 03/13/18 06:30 Magnesium 1.80 mg/dL (1.7-2.3) 03/07/18 Unknown Total Bilirubin 0.90 mg/dL (0.1-1.2) 03/10/18 05:20 AST 13 units/L (5-40) 03/10/18 05:20 ALT 21 units/L (7-56) 03/10/18 05:20 Alkaline Phosphatase 177 units/L (35-129) H 03/10/18 05:20 Total Creatine Kinase 23 units/L (30-135) L 03/07/18 09:14 CK-MB (CK-2) < 1.0 ng/mL (0.0-4.0) 03/07/18 09:14 CK-MB (CK-2) Rel Index 4.3 (0-4) H 03/07/18 09:14 Troponin T < 0.010 ng/mL (0.00-0.029) 03/07/18 09:14 Total Protein 7.2 g/dL (6.3-8.2) 03/10/18 05:20 Albumin 2.7 g/dL (3.9-5) L 03/10/18 05:20 Albumin/Globulin Ratio 0.6 % 03/10/18 05:20 Urine Color Jo[place] (Yellow) 03/06/18 00:46 Urine Turbidity Slightly-cloudy (Clear) 03/06/18 00:46 Urine pH 5.0 (5.0-7.0) 03/06/18 00:46 Ur Specific [place] 1.024 (1.003-1.030) 03/06/18 00:46 Urine Protein 100 mg/dl mg/dL (Negative) 03/06/18 00:46 Urine Glucose (UA) Neg mg/dL (Negative) 03/06/18 00:46 Urine Ketones Neg mg/dL (Negative) 03/06/18 00:46 Urine Blood Lg (Negative) 03/06/18 00:46 Urine Nitrite Neg (Negative) 03/06/18 00:46 Urine Bilirubin Neg (Negative) 03/06/18 00:46 Urine Urobilinogen 2.0 mg/dL (<2.0) 03/06/18 00:46 Ur Leukocyte Esterase Neg (Negative) 03/06/18 00:46 Urine WBC (Auto) 5.0 /HPF (0.0-6.0) 03/06/18 00:46 Urine RBC (Auto) > 182.0 /HPF (0.0-6.0) 03/06/18 00:46 U Epithel Cells (Auto) 5.0 /HPF (0-13.0) 03/06/18 00:46 Urine Mucus Few /HPF 03/06/18 00:46 Vancomycin Trough 4.5 ug/mL (5.0-20.0) L 03/10/18 05:20 Urine Opiates Screen Presumptive negative 03/07/18 04:35 Urine Methadone Screen Presumptive negative 03/07/18 04:35 Ur Barbiturates Screen Presumptive negative 03/07/18 04:35 Ur Phencyclidine Scrn Presumptive negative 03/07/18 04:35 Ur Amphetamines Screen Presumptive negative 03/07/18 04:35 U Benzodiazepines Scrn Presumptive negative 03/07/18 04:35 Urine Cocaine Screen Presumptive negative 03/07/18 04:35 U Marijuana (THC) Screen Presumptive negative 03/07/18 04:35 Drugs of Abuse Note Disclamer 03/07/18 04:35 Hep Bs Antigen Non-reactive (Negative) 03/07/18 23:01 Hep B Core Total Ab Nonreactive (Nonreactive) 03/07/18 23:01 Hepatitis C Antibody Non-reactive (NonReactive) 03/07/18 23:01 HIV 1&2 Antibody Rapid Non react (Non React) 03/10/18 12:50 HIV P24 Antigen Non react (Non React) 03/10/18 12:50
--- NOTE | 2018-03-13 13:28 | Cat Scan Report ---
CT CHEST WITH CONTRAST: HISTORY: Hemoptysis. COMPARISON: 03/07/18. TECHNIQUE: Helical CT in 1.25mm intervals following IV contrast. Sagittal and coronal reformatted images. FINDINGS: Thyroid gland: Normal. Tracheobronchial tree: Normal. Esophagus: Normal. Heart: Normal. Pericardium: Normal. Mediastinum: Aortic arch variant is again noted. Lung [place]: There is compressive atelectasis in the inferior left lung. Focal opacity at the right lung apex is essentially unchanged and probably represents segmental atelectasis. Infiltrate in the inferior left lung has resolved. Pleural Spaces: A large complex loculated left pleural effusion is identified which compresses most of the left lower lobe. This collection has increased significantly since the previous exam. No right pleural effusion. Musculoskeletal: Normal. IMPRESSION: Large complex left pleural fluid collection which is likely loculated.
[2018-03-13] MEDS: PERCOCET 5/325 PO PRN ×2 (13:51→21:28)
[2018-03-13] MEDS: XANAX PO PRN (18:28)
[2018-03-14] MEDS: NACL 0.45% 1000 ML 1,000 ML IV SCH (05:56)
[2018-03-14] MEDS: MORPHINE IV PRN ×2 (05:57→11:48)
[2018-03-14] MEDS ORDERED: NACL 0.9% 1000 ML 1,000 ML ONE (08:32)
[2018-03-14 08:36] LABS: Basophils # (Auto) 0.3 K/mm3 (0.0-0.1); Basophils % (Auto) 1.6 % (0.0-1.8); Eosinophils # (Auto) 0.1 K/mm3 (0.0-0.4); Eosinophils % (Auto) 0.8 % (0.0-4.3); Hematocrit 29.9 % (30.3-42.9); Hemoglobin 9.8 gm/dl (10.1-14.3); Lymphocytes # (Auto) 2.2 K/mm3 (1.2-5.4); Lymphocytes % (Auto) 13.7 % (13.4-35.0); Mean Corpuscular HGB Conc 33 % (30-34); Mean Corpuscular Hemoglobin 29 pg (28-32); Mean Corpuscular Volume 87 fl (79-97); Monocytes # (Auto) 1.1 K/mm3 (0.0-0.8); Platelet Count 679 K/mm3 (140-440); Red Blood Count 3.43 M/mm3 (3.65-5.03)
[2018-03-14] MEDS: DUONEB *Not for PRN Use IH SCH ×3 (08:50→19:29)
[2018-03-14] MEDS ORDERED: HURRICAINE ONE 20% TOPICAL SPRAY MM NR (09:00)
[2018-03-14] MEDS ORDERED: DIPRIVAN 10 MG/ML IV ONE ×2 (09:05)
--- NOTE | 2018-03-14 09:20 | Progress Note ---
Assessment and Plan Imagin03/13/18 CT - A large complex loculated left pleural effusion is identified which compresses most of the left lower lobe. This collection has increased significantly since the previous exam. No right pleural effusion. Cultures: 03/06/2018 blood culture: One out of 4 bottles positive for MRSA 03/07/2018 Blood culture: no growth A/P: 37-year-old female with hypertension, anxiety disorder, IVDU admitted with: 1) Sepsis, present on admission: Patient with fevers, leukocytosis, tachycardia and tachypnea. Source is MRSA bacteremia and bilateral pneumonia. 2) MRSA bacteremia with bilateral pneumonia: No evidence of septic thrombophlebitis of left lower extremity on exam. Patient does have a history of IVDU, although denies active IVDU. Bilateral pneumonia, also a nodular infiltrate seen on the right side which could correspond to a septic embolus. CHANCE today negative for endocarditis. Nuclear medicine leukocyte scan scheduled for 03/17. Considering CT report findings, will Consult IR for left chest tube placement. 3) IVDU: Hepatitis B, C screens negative Recommendations: Continue Ceftaroline 600 mg q8 hrs f/u on CHANCE report follow up leukocyte scan follow up with IR Dr. Benson will be taking call from home on Saturday , . He will be making rounds in the hospital on Saturday. Please call for questions. [facility] M: [phone] O:[phone] Subjective Date of service: 03/14/18 Principal diagnosis: MRSA bacteremia Interval history: Patient seen and examined. Just came back form CHANCE, very sleepy and noncommunicative. Current Antimicrboials: Ceftaroline Fosamil Previous Antimicrobials: Objective - Exam Narrative Exam: Constitutional: Sleepy, difficult to arouse Head, Ears, Nose: Normocephalic, atraumatic. External ears, nose normal Eyes: Conjunctivae/corneas clear. No icterus. Neck: Supple, no meningeal signs Oral: edentulous, mucosa moist. Cardiovascular: S1, S2 normal, tachycardia + Respiratory: left basal crackles auscultated. GI: Soft, non-tender; bowel sounds normal. No peritoneal signs Musculoskeletal: No pedal edema, no cyanosis. Mild right and left upper paraspinal tenderness Skin: No rash or abscess, livedo type rash on both legs Hem/Lymphatic: No palpable cervical or supraclavicular nodes. No lymphangitis Psych: Mood ok Neurological: Sleepy, exam limited - Constitutional Vitals: Vital Signs Temp Pulse Resp BP Pulse Ox 98.7 F 99 H 17 121/79 93 03/14/18 08:08 03/14/18 09:12 03/14/18 09:12 03/14/18 09:12 03/14/18 09:12 Temperature -Last 24 Hours Temperature 98.7 F Temperature 97.6 F Temperature 97.6 F Temperature 98.4 F Temperature 98.5 F Temperature 98.0 F - Labs CBC & Chem 7: 03/14/18 08:11 03/14/18 08:11 Labs: Abnormal lab results 03/13/18 03/14/18 Range/Units 21:25 08:11 WBC 16.4 H (4.5-11.0) K/mm3 RBC 3.43 L (3.65-5.03) M/mm3 Hgb 9.8 L (10.1-14.3) gm/dl Hct 29.9 L (30.3-42.9) % Plt Count 679 H (140-440) K/mm3 [place] # 1.1 H (0.0-0.8) K/mm3 Baso # 0.3 H (0.0-0.1) K/mm3 Seg Neutrophils % 76.9 H (40.0-70.0) % Seg Neutrophils # 12.6 H (1.8-7.7) K/mm3 POC Glucose 139 H (70-105)
--- NOTE | 2018-03-14 09:23 | Progress Note ---
Assessment and Plan Sepsis MRSA bateremia CHANCE is negative for endocarditis Pneumonia Large parapneumonic effusion on CT scan Severe back pain Chest pain, atypical Recent dx of Superficial venous thrombosis on eliquis for oral anticoagulation therapy. Recommendations: No further cardiac work-up is needed Consider pulmonary evaluation of large parapneumonic left sided pleural effusion Subjective Date of service: 03/14/18 Principal diagnosis: MRSA bacteremia Interval history: Patient underwent a CHANCE today without complications Objective Vital Signs Temp Temp Pulse Pulse Pulse Pulse Pulse 03/14/18 09:17 97.2 F L 99 H 03/14/18 09:12 99 H 03/14/18 09:06 96 H 03/14/18 09:02 96 H 03/14/18 08:52 100 H 03/14/18 08:08 98.7 F 106 H 03/14/18 05:33 97.6 F 88 03/14/18 04:19 97.6 F 03/14/18 00:18 98.4 F 107 H 03/13/18 21:28 03/13/18 20:01 98.5 F 106 H 03/13/18 20:00 03/13/18 16:47 98.0 F 108 H 03/13/18 10:00 125 H 128 H Resp Resp Resp Resp BP BP BP 03/14/18 09:17 21 112/76 03/14/18 09:12 17 121/79 03/14/18 09:06 16 03/14/18 09:02 18 03/14/18 08:52 18 03/14/18 08:08 18 03/14/18 05:33 18 03/14/18 04:19 18 109/76 03/14/18 00:18 18 03/13/18 21:28 20 03/13/18 20:01 20 119/80 03/13/18 20:00 03/13/18 16:47 112/80 03/13/18 10:00 18 BP BP Pulse Ox Pulse Ox Pulse Ox Pulse Ox 03/14/18 09:17 97 03/14/18 09:12 93 03/14/18 09:06 121/79 96 03/14/18 09:02 124/72 96 03/14/18 08:52 135/84 93 03/14/18 08:08 131/83 95 03/14/18 05:33 109/76 91 03/14/18 04:19 03/14/18 00:18 128/82 94 03/13/18 21:28 03/13/18 20:01 94 03/13/18 20:00 94 03/13/18 16:47 94 03/13/18 10:00 93 - Physical Examination General: No Apparent Distress HEENT: Positive: PERRL Neck: Positive: neck supple Cardiac: Positive: Reg Rate and Rhythm Lungs: Positive: Decreased Breath Sounds (left base) Neuro: Positive: Grossly Intact Abdomen: Positive: Soft Skin: Positive: Clear Extremities: Absent: edema - Labs and Meds CBC 03/14/18 Range/Units 08:11 WBC 16.4 H (4.5-11.0) K/mm3 RBC 3.43 L (3.65-5.03) M/mm3 Hgb 9.8 L (10.1-14.3) gm/dl Hct 29.9 L (30.3-42.9) % Plt Count 679 H (140-440) K/mm3 Lymph # 2.2 (1.2-5.4) K/mm3 [place] # 1.1 H (0.0-0.8) K/mm3 Eos # 0.1 (0.0-0.4) K/mm3 Baso # 0.3 H (0.0-0.1) K/mm3
--- NOTE | 2018-03-14 09:26 | Anesthesia Consultation ---
Anesthesia Consult and Med Hx Date of service: 03/14/18 - Airway Anesthetic Teeth Evaluation: Edentulous ROM Head & Neck: Adequate Mental/Hyoid Distance: Adequate Mallampati Class: Class III Intubation Access Assessment: Possibly Difficult - Pulmonary Exam CTA: Yes - Cardiac Exam Cardiac Exam: No Murmur - Pre-Operative Health Status ASA Pre-Surgery Classification: ASA3 Proposed Anesthetic Plan: General (hx of IV drug use, opiate addiction, hx of tob abuse) - Pulmonary Hx Smoking: Yes - Cardiovascular System Hx Hypertension: Yes Hx Pacemaker: No Hx Internal Defibrillator: No - Central Nervous System Hx Psychiatric Problems: Yes (panic attacks) - Other Systems Hx Substance Use: Yes (IVDA)
--- NOTE | 2018-03-14 09:27 | Anesthesia Day of Surgery ---
Anesthesia Day of Surgery - Day of Surgery Patient Examined: Yes Patient H&P Reviewed: Yes Patient is NPO: Yes
--- NOTE | 2018-03-14 09:39 | Progress Note ---
Assessment and Plan Assessment and plan: Sepsis. - Patient with MRSA bacteremia and bilateral pneumonia. - ID following. Continue antibiotics per recommendations-- IV Ceftaroline - MRI of the spine to R/O discitis, abscess - Leukocytosis is improved. MRSA bacteremia. Continue antibiotics per ID. - Blood culture grew MRSA, contact isolation, echo showed no vegetation, repeat blood culture is negative Bilateral pneumonia. - a nodular infiltrate seen on the right side which could correspond to a septic embolus - CT chest completed on 03/13/18 revealed large complex left pleural fluid collection which is likely loculated. - TTE was normal but given her history of IVDU, she will undergo CHANCE today. Loculated pleural effusion. -Pulmonary consultation with regards to treatment i.e. thoracentesis/chest tube/ decortication etc. Hemoptysis. - Hemopytis during attempted MRI procedure today, will order CT for possible necrotizing pneumonia and Nuclear medicine leukocyte scan to evaluate metastatic infection. History IVDU. - Hepatitis B, C screens negative. Anxiety disorder - Continue Xanax when necessary Pleuritic chest pain - Likely due to pneumonia - Pain control DVT prophylaxis - Continue eliquis Disposition - Continue inpatient care History Interval history: 37-year-old female with past medical history significant for hypertension, IV drug abuse, superficial venous thrombosis presented to the emergency department complaining of pleuritic left-sided chest pain. Patient had fever and elevated lactic acid and leukocytosis on admission which persists at this time. Hospitalist Physical - Constitutional Vitals: Temp Pulse Resp BP Pulse Ox 97.2 F L 99 H 21 112/76 97 03/14/18 09:17 03/14/18 09:17 03/14/18 09:17 03/14/18 09:17 03/14/18 09:17 General appearance: Present: no acute distress - EENT Eyes: Present: PERRL, EOM intact ENT: hearing intact, clear oral mucosa, dentition normal - Neck Neck: Present: supple, normal ROM - Respiratory Respiratory effort: normal Respiratory: bilateral: CTA - Cardiovascular Rhythm: regular Heart Sounds: Present: S1 & S2. Absent: gallop, rub - Extremities Extremities: no ischemia, No edema, Full ROM - Abdominal General gastrointestinal: soft, non-tender, non-distended, normal bowel sounds - Integumentary Integumentary: Present: clear, warm, dry - Neurologic Neurologic: CNII-XII intact, moves all extremities Results - Labs CBC & Chem 7: 03/14/18 08:11 03/13/18 06:30 Labs: Laboratory Last Values WBC 16.4 K/mm3 (4.5-11.0) H 03/14/18 08:11 RBC 3.43 M/mm3 (3.65-5.03) L 03/14/18 08:11 Hgb 9.8 gm/dl (10.1-14.3) L 03/14/18 08:11 Hct 29.9 % (30.3-42.9) L 03/14/18 08:11 MCV 87 fl (79-97) 03/14/18 08:11 MCH 29 pg (28-32) 03/14/18 08:11 MCHC 33 % (30-34) 03/14/18 08:11 RDW 15.0 % (13.2-15.2) 03/14/18 08:11 Plt Count 679 K/mm3 (140-440) H 03/14/18 08:11 Lymph % (Auto) 13.7 % (13.4-35.0) 03/14/18 08:11 [place] % (Auto) 7.0 % (0.0-7.3) 03/14/18 08:11 Eos % (Auto) 0.8 % (0.0-4.3) 03/14/18 08:11 Baso % (Auto) 1.6 % (0.0-1.8) 03/14/18 08:11 Lymph # 2.2 K/mm3 (1.2-5.4) 03/14/18 08:11 [place] # 1.1 K/mm3 (0.0-0.8) H 03/14/18 08:11 Eos # 0.1 K/mm3 (0.0-0.4) 03/14/18 08:11 Baso # 0.3 K/mm3 (0.0-0.1) H 03/14/18 08:11 Add Manual Diff Complete 03/13/18 06:30 Total Counted 100 03/13/18 06:30 Seg Neutrophils % 76.9 % (40.0-70.0) H 03/14/18 08:11 Seg Neuts % (Manual) 82.0 % (40.0-70.0) H 03/13/18 06:30 Band Neutrophils % 1.0 % 03/13/18 06:30 Lymphocytes % (Manual) 12.0 % (13.4-35.0) L 03/13/18 06:30 Reactive Lymphs % (Man) 1.0 % 03/13/18 06:30 Monocytes % (Manual) 2.0 % (0.0-7.3) 03/13/18 06:30 Eosinophils % (Manual) 0 % (0.0-4.3) 03/13/18 06:30 Basophils % (Manual) 0 % (0.0-1.8) 03/13/18 06:30 Metamyelocytes % 2.0 % 03/13/18 06:30 Myelocytes % 0 % 03/13/18 06:30 Promyelocytes % 0 % 03/13/18 06:30 Blast Cells % 0 % 03/13/18 06:30 Nucleated RBC % Not Reportable 03/13/18 06:30 Seg Neutrophils # 12.6 K/mm3 (1.8-7.7) H 03/14/18 08:11 Seg Neutrophils # Man 17.1 K/mm3 (1.8-7.7) H 03/13/18 06:30 Band Neutrophils # 0.2 K/mm3 03/13/18 06:30 Lymphocytes # (Manual) 2.5 K/mm3 (1.2-5.4) 03/13/18 06:30 Abs React Lymphs (Man) 0.2 K/mm3 03/13/18 06:30 Monocytes # (Manual) 0.4 K/mm3 (0.0-0.8) 03/13/18 06:30 Eosinophils # (Manual) 0.0 K/mm3 (0.0-0.4) 03/13/18 06:30 Basophils # (Manual) 0.0 K/mm3 (0.0-0.1) 03/13/18 06:30 Metamyelocytes # 0.4 K/mm3 03/13/18 06:30 Myelocytes # 0.0 K/mm3 03/13/18 06:30 Promyelocytes # 0.0 K/mm3 03/13/18 06:30 Blast Cells # 0.0 K/mm3 03/13/18 06:30 WBC Morphology Not Reportable 03/13/18 06:30 Hypersegmented Neuts Not Reportable 03/13/18 06:30 Hyposegmented Neuts Not Reportable 03/13/18 06:30 Hypogranular Neuts Not Reportable 03/13/18 06:30 Smudge Cells Not Reportable 03/13/18 06:30 Toxic Granulation Not Reportable 03/13/18 06:30 Toxic Vacuolation Not Reportable 03/13/18 06:30 Dohle Bodies Not Reportable 03/13/18 06:30 Pel[place]-Huet Anomaly Not Reportable 03/13/18 06:30 Yoni Rods Not Reportable 03/13/18 06:30 Platelet Estimate Cons 03/13/18 06:30 Clumped Platelets Not Reportable 03/13/18 06:30 Plt Clumps, EDTA Not Reportable 03/13/18 06:30 Large Platelets Few 03/13/18 06:30 Giant Platelets Rare 03/13/18 06:30 Platelet Satelliting Not Reportable 03/13/18 06:30 Plt Morphology Comment Not Reportable 03/13/18 06:30 RBC Morphology Not Reportable 03/13/18 06:30 Dimorphic RBCs Not Reportable 03/13/18 06:30 Polychromasia Not Reportable 03/13/18 06:30 Hypochromasia Not Reportable 03/13/18 06:30 Poikilocytosis Not Reportable 03/13/18 06:30 Anisocytosis 1+ 03/13/18 06:30 Microcytosis Not Reportable 03/13/18 06:30 Macrocytosis Not Reportable 03/13/18 06:30 Spherocytes Not Reportable 03/13/18 06:30 Pappenheimer Bodies Not Reportable 03/13/18 06:30 Sickle Cells Not Reportable 03/13/18 06:30 Target Cells Not Reportable 03/13/18 06:30 Tear Drop Cells Not Reportable 03/13/18 06:30 Ovalocytes Not Reportable 03/13/18 06:30 Helmet Cells Not Reportable 03/13/18 06:30 [place] Bodies Not Reportable 03/13/18 06:30 [place] Rings Not Reportable 03/13/18 06:30 [place] Cells Not Reportable 03/13/18 06:30 Bite Cells Not Reportable 03/13/18 06:30 Crenated Cell Not Reportable 03/13/18 06:30 Elliptocytes Not Reportable 03/13/18 06:30 Acanthocytes (Spur) Not Reportable 03/13/18 06:30 Rouleaux Not Reportable 03/13/18 06:30 Hemoglobin C Crystals Not Reportable 03/13/18 06:30 Schistocytes Not Reportable 03/13/18 06:30 Malaria parasites Not Reportable 03/13/18 06:30 [place] Bodies Not Reportable 03/13/18 06:30 Hem Pathologist Commnt No 03/13/18 06:30 PT 12.9 Sec. (12.2-14.9) 03/06/18 23:22 INR 0.93 (0.87-1.13) 03/06/18 23:22 VBG pH 7.371 (7.320-7.420) 03/06/18 23:37 Sodium 137 mmol/L (137-145) 03/13/18 06:30 Potassium 3.6 mmol/L (3.6-5.0) 03/13/18 06:30 Chloride 99.5 mmol/L (98-107) 03/13/18 06:30 Carbon Dioxide 24 mmol/L (22-30) 03/13/18 06:30 Anion Gap 17 mmol/L 03/13/18 06:30 BUN 6 mg/dL (7-17) L 03/13/18 06:30 Creatinine 0.4 mg/dL (0.7-1.2) L 03/13/18 06:30 Estimated GFR > 60 ml/min 03/13/18 06:30 BUN/Creatinine Ratio 15 % 03/13/18 06:30 Glucose 102 mg/dL (65-100) H 03/13/18 06:30 POC Glucose 79 (70-105) 03/14/18 06:07 Lactic Acid 1.40 mmol/L (0.7-2.0) 03/07/18 13:34 Calcium 8.6 mg/dL (8.4-10.2) 03/13/18 06:30 Magnesium 1.80 mg/dL (1.7-2.3) 03/07/18 Unknown Total Bilirubin 0.90 mg/dL (0.1-1.2) 03/10/18 05:20 AST 13 units/L (5-40) 03/10/18 05:20 ALT 21 units/L (7-56) 03/10/18 05:20 Alkaline Phosphatase 177 units/L (35-129) H 03/10/18 05:20 Total Creatine Kinase 23 units/L (30-135) L 03/07/18 09:14 CK-MB (CK-2) < 1.0 ng/mL (0.0-4.0) 03/07/18 09:14 CK-MB (CK-2) Rel Index 4.3 (0-4) H 03/07/18 09:14 Troponin T < 0.010 ng/mL (0.00-0.029) 03/07/18 09:14 Total Protein 7.2 g/dL (6.3-8.2) 03/10/18 05:20 Albumin 2.7 g/dL (3.9-5) L 03/10/18 05:20 Albumin/Globulin Ratio 0.6 % 03/10/18 05:20 Urine Color [place] (Yellow) 03/06/18 00:46 Urine Turbidity Slightly-cloudy (Clear) 03/06/18 00:46 Urine pH 5.0 (5.0-7.0) 03/06/18 00:46 Ur Specific [place] 1.024 (1.003-1.030) 03/06/18 00:46 Urine Protein 100 mg/dl mg/dL (Negative) 03/06/18 00:46 Urine Glucose (UA) Neg mg/dL (Negative) 03/06/18 00:46 Urine Ketones Neg mg/dL (Negative) 03/06/18 00:46 Urine Blood Lg (Negative) 03/06/18 00:46 Urine Nitrite Neg (Negative) 03/06/18 00:46 Urine Bilirubin Neg (Negative) 03/06/18 00:46 Urine Urobilinogen 2.0 mg/dL (<2.0) 03/06/18 00:46 Ur Leukocyte Esterase Neg (Negative) 03/06/18 00:46 Urine WBC (Auto) 5.0 /HPF (0.0-6.0) 03/06/18 00:46 Urine RBC (Auto) > 182.0 /HPF (0.0-6.0) 03/06/18 00:46 U Epithel Cells (Auto) 5.0 /HPF (0-13.0) 03/06/18 00:46 Urine Mucus Few /HPF 03/06/18 00:46 Vancomycin Trough 4.5 ug/mL (5.0-20.0) L 03/10/18 05:20 Urine Opiates Screen Presumptive negative 03/07/18 04:35 Urine Methadone Screen Presumptive negative 03/07/18 04:35 Ur Barbiturates Screen Presumptive negative 03/07/18 04:35 Ur Phencyclidine Scrn Presumptive negative 03/07/18 04:35 Ur Amphetamines Screen Presumptive negative 03/07/18 04:35 U Benzodiazepines Scrn Presumptive negative 03/07/18 04:35 Urine Cocaine Screen Presumptive negative 03/07/18 04:35 U Marijuana (THC) Screen Presumptive negative 03/07/18 04:35 Drugs of Abuse Note Disclamer 03/07/18 04:35 Hep Bs Antigen Non-reactive (Negative) 03/07/18 23:01 Hep B Core Total Ab Nonreactive (Nonreactive) 03/07/18 23:01 Hepatitis C Antibody Non-reactive (NonReactive) 03/07/18 23:01 HIV 1&2 Antibody Rapid Non react (Non React) 03/10/18 12:50 HIV P24 Antigen Non react (Non React) 03/10/18 12:50
[2018-03-14 09:46] LABS: BUN/Creatinine Ratio 13; Blood Urea Nitrogen 5 mg/dL (7-17); Calcium 8.3 mg/dL (8.4-10.2); Hemolysis Index 45
[2018-03-14] MEDS: MIRALAX 3350 PO SCH (10:58)
--- NOTE | 2018-03-14 11:13 | Consultation ---
History of Present Illness Consult date: 03/14/18 Reason for consult: chest pain, pleural effusion, other (MRSA bacteremia, past medical history of IV drug abuse) History of present illness: Called to evaluate case of a 37-year-old female, admitted one week ago for superficial fever associated with left sided chest pain. The patient had past medical history of IVDU, tobacco abuse. Also recently been incarcerated, just moved to the area. Her symptoms started a few days prior to presented to the hospital. She was seen at the ER and then released but she came back the same symptoms. Chest CT scan showed density in the right upper lobe reported by radiology as possible atelectasis, also likely loculated left pleural effusion. Medications and Allergies Allergies Allergy/AdvReac Type Severity Reaction Status Date / Time No Known Allergies Allergy Verified 03/06/18 23:18 Home Medications Medication Instructions Recorded Confirmed Last Taken Type Sulfamethoxazole/Trimethoprim 1 each PO BID #10 tablet 03/03/18 03/07/18 Rx [Bactrim DS TAB] ALPRAZolam [Xanax TAB] 0.5 mg PO QHS PRN 03/05/18 03/07/18 03/04/18 History Apixaban [Eliquis] 5 mg PO BID #60 tablet 03/05/18 03/07/18 Unknown Rx Ibuprofen 600 mg PO Q6H 03/05/18 03/07/18 03/04/18 History Active Meds: Active Medications Acetaminophen (Tylenol) 650 mg PO Q4H PRN PRN Reason: Pain MILD(1-3)/Fever >100.5/DEL TORO Last Admin: 03/10/18 21:48 Dose: 650 mg Albuterol (Proventil) 2.5 mg IH Q2HRT PRN PRN Reason: Shortness Of Breath Albuterol/Ipratropium (Duoneb *Not For Prn Use*) 1 ampul IH TIDRT [facility] Last Admin: 03/14/18 08:50 Dose: Not Given Alprazolam (Xanax) 0.5 mg PO Q12HR PRN PRN Reason: Anxiety Last Admin: 03/13/18 18:28 Dose: 0.5 mg Apixaban (Eliquis) 5 mg PO BID [facility]; Protocol Last Admin: 03/13/18 21:19 Dose: 5 mg Benzocaine (Hurricaine One 20% Topical [place]) 3 spray MM PREOP NR Stop: 03/14/18 23:59 Last Admin: 03/14/18 09:07 Dose: 3 spray Bisacodyl (Dulcolax) 10 mg MI QDAY PRN PRN Reason: Constipation Sodium Chloride (Nacl 0.45% 1000 Ml) 1,000 mls @ 150 mls/hr IV DIRECT [facility] Last Admin: 03/14/18 05:56 Dose: 150 mls/hr CEFTAROLINE FOSAMIL 600 mg/ (Sodium Chloride) 50 mls @ 50 mls/30 min IV Q8HR [facility] Last Admin: 03/13/18 21:19 Dose: 50 mls/30 min Ibuprofen (Motrin) 800 mg PO Q8H PRN PRN Reason: Pain, Mild (1-3) Morphine Sulfate (Morphine) 2 mg IV Q4H PRN PRN Reason: Pain, Moderate (4-6) Last Admin: 03/14/18 05:57 Dose: 2 mg Ondansetron HCl (Zofran) 4 mg IV Q8H PRN PRN Reason: Nausea And Vomiting Last Admin: 03/09/18 10:06 Dose: 4 mg Oxycodone/Acetaminophen (Percocet 5/325) 2 tab PO Q6H PRN PRN Reason: Pain, Moderate (4-6) Last Admin: 03/13/18 21:28 Dose: 2 tab Polyethylene Glycol (Miralax 3350) 17 gm PO BID [facility] Last Admin: 03/13/18 21:19 Dose: 17 gm Sodium Chloride (Sodium Chloride Flush Syringe 10 Ml) 10 ml IV BID [facility] Last Admin: 03/13/18 21:20 Dose: 10 ml Sodium Chloride (Sodium Chloride Flush Syringe 10 Ml) 10 ml IV PRN PRN PRN Reason: LINE FLUSH Review of Systems Constitutional: weight loss, fever, chills, fatigue, weakness, malaise Respiratory: cough with sputum, hemoptysis Physical Examination Vital signs: Vital Signs Temp Pulse BP Pulse Ox 101.8 F H 133 H 130/90 95 03/06/18 21:47 03/06/18 21:47 03/06/18 21:47 03/06/18 21:47 General appearance: no acute distress Eyes: non-icteric ENT: oropharynx moist Neck: supple, no JVD Ascultation: Right: clear, Left: diminished breath sounds, rhonchi Gastrointestinal: normoactive bowel sounds, non-distended Integumentary: normal Extremities: no cyanosis, no edema, no ischemia or petechiae Musculoskeletal: no deformities non-focal exam, other (sleepy) mood appropriate, affect normal Results - Laboratory Findings CBC and BMP: 03/14/18 08:11 03/14/18 08:11 PT/INR, D-dimer PT 12.9 Sec. (12.2-14.9) 03/06/18 23:22 INR 0.93 (0.87-1.13) 03/06/18 23:22 Abnormal lab findings: Abnormal Labs 03/06/18 03/06/18 03/06/18 23:19 23:19 23:37 WBC 12.7 H RBC Hgb Hct RDW Plt Count Lymph % (Auto) 11.3 L [place] % (Auto) [place] # Baso # Seg Neutrophils % 83.6 H Seg Neuts % (Manual) Lymphocytes % (Manual) Monocytes % (Manual) Seg Neutrophils # 10.6 H Seg Neutrophils # Man Monocytes # (Manual) Basophils # (Manual) Sodium 134 L Potassium Chloride 95.2 L Carbon Dioxide 21 L BUN Creatinine 0.6 L Glucose POC Glucose Lactic Acid 2.20 H* Calcium Magnesium AST 59 H ALT 57 H Alkaline Phosphatase 195 H Total Creatine Kinase CK-MB (CK-2) Rel Index Albumin Vancomycin Trough 03/07/18 03/07/18 03/07/18 00:49 02:36 02:36 WBC RBC Hgb Hct RDW Plt Count Lymph % (Auto) [place] % (Auto) [place] # Baso # Seg Neutrophils % Seg Neuts % (Manual) Lymphocytes % (Manual) Monocytes % (Manual) Seg Neutrophils # Seg Neutrophils # Man Monocytes # (Manual) Basophils # (Manual) Sodium Potassium Chloride Carbon Dioxide BUN Creatinine Glucose POC Glucose Lactic Acid 2.70 H* Calcium Magnesium AST ALT Alkaline Phosphatase Total Creatine Kinase 14 L 20 L CK-MB (CK-2) Rel Index 7.1 H 5.0 H Albumin Vancomycin Trough 03/07/18 03/07/18 03/07/18 09:14 13:11 13:11 WBC 12.8 H RBC Hgb Hct RDW Plt Count 139 L Lymph % (Auto) [place] % (Auto) [place] # 0.9 H Baso # Seg Neutrophils % 75.0 H Seg Neuts % (Manual) Lymphocytes % (Manual) Monocytes % (Manual) Seg Neutrophils # 9.6 H Seg Neutrophils # Man Monocytes # (Manual) Basophils # (Manual) Sodium Potassium Chloride Carbon Dioxide 20 L BUN Creatinine 0.5 L Glucose 112 H POC Glucose Lactic Acid Calcium 7.8 L D Magnesium 1.60 L AST ALT Alkaline Phosphatase Total Creatine Kinase 23 L CK-MB (CK-2) Rel Index 4.3 H Albumin Vancomycin Trough 03/08/18 03/08/18 03/09/18 05:08 05:08 06:55 WBC 12.6 H 16.2 H RBC Hgb Hct RDW Plt Count Lymph % (Auto) [place] % (Auto) 9.5 H [place] # 1.2 H Baso # Seg Neutrophils % 76.2 H Seg Neuts % (Manual) Lymphocytes % (Manual) Monocytes % (Manual) 13.0 H Seg Neutrophils # 9.6 H Seg Neutrophils # Man 10.7 H Monocytes # (Manual) 2.1 H Basophils # (Manual) Sodium 130 L D Potassium 3.1 L D Chloride Carbon Dioxide BUN 5 L Creatinine 0.5 L Glucose 124 H POC Glucose Lactic Acid Calcium Magnesium AST ALT Alkaline Phosphatase Total Creatine Kinase CK-MB (CK-2) Rel Index Albumin Vancomycin Trough 03/09/18 03/09/18 03/10/18 06:55 20:55 05:20 WBC RBC Hgb Hct RDW Plt Count Lymph % (Auto) [place] % (Auto) [place] # Baso # Seg Neutrophils % Seg Neuts % (Manual) Lymphocytes % (Manual) Monocytes % (Manual) Seg Neutrophils # Seg Neutrophils # Man Monocytes # (Manual) Basophils # (Manual) Sodium 133 L Potassium 3.5 L Chloride Carbon Dioxide BUN 4 L Creatinine 0.4 L Glucose 105 H POC Glucose 123 H Lactic Acid Calcium Magnesium AST ALT Alkaline Phosphatase Total Creatine Kinase CK-MB (CK-2) Rel Index Albumin Vancomycin Trough 4.5 L 03/10/18 03/10/18 03/11/18 05:20 05:20 06:44 WBC 19.2 H 20.4 H RBC 3.63 L Hgb Hct RDW 15.4 H Plt Count 445 H Lymph % (Auto) [place] % (Auto) [place] # Baso # Seg Neutrophils % Seg Neuts % (Manual) 76.0 H Lymphocytes % (Manual) 13.0 L Monocytes % (Manual) 12.0 H Seg Neutrophils # Seg Neutrophils # Man 13.4 H 15.5 H Monocytes # (Manual) 2.3 H 1.4 H Basophils # (Manual) 0.2 H 0.2 H Sodium 132 L Potassium Chloride Carbon Dioxide 20 L BUN 4 L Creatinine 0.4 L Glucose 109 H POC Glucose Lactic Acid Calcium Magnesium AST ALT Alkaline Phosphatase 177 H Total Creatine Kinase CK-MB (CK-2) Rel Index Albumin 2.7 L Vancomycin Trough 03/11/18 03/12/18 03/12/18 06:44 07:07 07:07 WBC 25.3 H RBC 3.48 L Hgb Hct RDW 15.3 H Plt Count 568 H Lymph % (Auto) [place] % (Auto) [place] # Baso # Seg Neutrophils % Seg Neuts % (Manual) 72.0 H Lymphocytes % (Manual) Monocytes % (Manual) Seg Neutrophils # Seg Neutrophils # Man 18.2 H Monocytes # (Manual) 1.5 H Basophils # (Manual) Sodium 135 L 135 L Potassium Chloride 96.5 L Carbon Dioxide BUN 5 L 5 L Creatinine 0.4 L 0.4 L Glucose 102 H POC Glucose Lactic Acid Calcium 8.0 L 8.3 L Magnesium AST ALT Alkaline Phosphatase Total Creatine Kinase CK-MB (CK-2) Rel Index Albumin Vancomycin Trough 03/13/18 03/13/18 03/13/18 06:16 06:30 06:30 WBC 20.9 H RBC 3.38 L Hgb 9.7 L Hct 29.6 L RDW Plt Count 671 H Lymph % (Auto) [place] % (Auto) [place] # Baso # Seg Neutrophils % Seg Neuts % (Manual) 82.0 H Lymphocytes % (Manual) 12.0 L Monocytes % (Manual) Seg Neutrophils # Seg Neutrophils # Man 17.1 H Monocytes # (Manual) Basophils # (Manual) Sodium Potassium Chloride Carbon Dioxide BUN 6 L Creatinine 0.4 L Glucose 102 H POC Glucose 117 H Lactic Acid Calcium Magnesium AST ALT Alkaline Phosphatase Total Creatine Kinase CK-MB (CK-2) Rel Index Albumin Vancomycin Trough 03/13/18 03/14/18 03/14/18 21:25 08:11 08:11 WBC 16.4 H RBC 3.43 L Hgb 9.8 L Hct 29.9 L RDW Plt Count 679 H Lymph % (Auto) [place] % (Auto) [place] # 1.1 H Baso # 0.3 H Seg Neutrophils % 76.9 H Seg Neuts % (Manual) Lymphocytes % (Manual) Monocytes % (Manual) Seg Neutrophils # 12.6 H Seg Neutrophils # Man Monocytes # (Manual) Basophils # (Manual) Sodium 135 L Potassium Chloride Carbon Dioxide BUN 5 L Creatinine 0.4 L Glucose POC Glucose 139 H Lactic Acid Calcium 8.3 L Magnesium AST ALT Alkaline Phosphatase Total Creatine Kinase CK-MB (CK-2) Rel Index Albumin Vancomycin Trough - Diagnostic Findings CT scan - chest: report reviewed, image reviewed Assessment and Plan Loculated left pleural effusion. Parapneumonic versus secondary to MRSA bacteremia MRSA bacteremia No endocarditis by CHANCE evaluation Past medical history of IVDU Recommendations Initial approach will be to perform sonographic guided thoracentesis drainage. If clinically feasible, sample for WBC differential, LDH, protein, glucose, cholesterol and Gram stain and culture If these fail to resolve the problem and not suitable for repeated drainage, VATS may be the next option Continue antibiotics per ID Check sputum culture if persistent expectoration Chest PT DVT prophylaxis Thanks
[2018-03-14] MEDS: ELIQUIS PO SCH ×2 (11:48→21:42)
[2018-03-14] MEDS ORDERED: AFLURIA QUAD 2018-2019 SYRINGE IM ONE (12:00)
--- NOTE | 2018-03-14 12:21 | Event Note ---
Date: 03/14/18 Received consult request. reviewed films and reports. Agree with pulmonary. This would best be addressed with an image guided tube placement. Pt will most likely ultimately need to be transferred to a facility with thoracic surgery for a VATS. Communicated with Dr. Mota. He has placed consult for IR. Please call with questions.
--- NOTE | 2018-03-14 15:18 | Event Note ---
Date: 03/14/[address] Adkins. Discussed with Dr. Mota. Plan to attempt to transfer patient to facility with thoracic surgery. If this is not possible, then plan for CT guided chest tube placement on saturday. Will place orders for procedure now. CT procedure facility are limited after 3 PM and on weekends.
[2018-03-14] MEDS: TEFLARO IV SCH ×3 (19:06→21:42)
[2018-03-14] MEDS: NACL 0.9% IV SCH ×3 (19:06→21:42)
[2018-03-14] MEDS: SODIUM CHLORIDE FLUSH SYRINGE 10 ML IV SCH (20:10)
[2018-03-15] MEDS: PERCOCET 5/325 PO PRN ×3 (01:37→19:36)
[2018-03-15] MEDS: XANAX PO PRN ×2 (01:37→22:25)
[2018-03-15] MEDS: SODIUM CHLORIDE FLUSH SYRINGE 10 ML IV SCH ×3 (01:37→23:17)
[2018-03-15] MEDS: MIRALAX 3350 PO SCH ×3 (01:37→22:05)
[2018-03-15] MEDS: NACL 0.45% 1000 ML 1,000 ML IV SCH (04:01)
[2018-03-15] MEDS: NACL 0.9% IV SCH ×3 (05:28→22:05)
[2018-03-15] MEDS: TEFLARO IV SCH ×3 (05:28→22:05)
[2018-03-15] MEDS: MORPHINE IV PRN (05:29)
[2018-03-15 05:49] LABS: Basophils # (Auto) 0.1 K/mm3 (0.0-0.1); Basophils % (Auto) 0.5 % (0.0-1.8); Eosinophils # (Auto) 0.1 K/mm3 (0.0-0.4); Eosinophils % (Auto) 0.9 % (0.0-4.3); Hematocrit 28.7 % (30.3-42.9); Hemoglobin 9.6 gm/dl (10.1-14.3); Lymphocytes # (Auto) 2.6 K/mm3 (1.2-5.4); Lymphocytes % (Auto) 16.5 % (13.4-35.0); Mean Corpuscular HGB Conc 34 % (30-34); Mean Corpuscular Hemoglobin 30 pg (28-32); Mean Corpuscular Volume 88 fl (79-97); Monocytes # (Auto) 1.2 K/mm3 (0.0-0.8); Monocytes % (Auto) 7.5 % (0.0-7.3); Platelet Count 727 K/mm3 (140-440); Red Blood Count 3.26 M/mm3 (3.65-5.03); Red Cell Distribution Width 14.8 % (13.2-15.2)
[2018-03-15] MEDS: DUONEB *Not for PRN Use IH SCH ×3 (07:30→20:09)
[2018-03-15 08:01] LABS: BUN/Creatinine Ratio 10; Blood Urea Nitrogen 4 mg/dL (7-17); Calcium 8.6 mg/dL (8.4-10.2); Hemolysis Index 3
--- NOTE | 2018-03-15 11:23 | Progress Note ---
Assessment and Plan Loculated left pleural effusion. Parapneumonic versus secondary to MRSA bacteremia MRSA bacteremia No endocarditis by CHANCE evaluation Past medical history of IVDU Recommendations IR and surgery notes reviewed-agreed with my colleagues regarding options of performing sonographic guided thoracentesis drainage versus VATS. I discussed the indications, treatment issues and benefit of all this with the patient in detail. Continue antibiotics per ID Check sputum culture if persistent expectoration Chest PT DVT prophylaxis Subjective Date of service: 03/15/18 Principal diagnosis: MRSA bacteremia Interval history: Still some chest discomfort on the left side. Minimal cough. No fever Objective Vital Signs - 12hr 03/15/18 03/15/18 03/15/18 00:28 05:08 07:30 Temperature 98.6 F 98.1 F Pulse Rate 105 H 97 H Pulse Rate [ Anterior Bilateral] Respiratory 20 20 Rate Respiratory Rate [Anterior Bilateral] Blood Pressure 120/81 123/85 Blood Pressure [Right] O2 Sat by Pulse 97 96 95 Oximetry 03/15/18 03/15/18 03/15/18 07:46 07:52 08:15 Temperature 97.6 F Pulse Rate 98 H Pulse Rate [ 90 94 H Anterior Bilateral] Respiratory 18 Rate Respiratory 18 18 Rate [Anterior Bilateral] Blood Pressure Blood Pressure 136/90 [Right] O2 Sat by Pulse 99 Oximetry Constitutional: no acute distress, alert Eyes: non-icteric ENT: oropharynx moist Neck: supple, no JVD Ascultation: Right: clear, Left: diminished breath sounds, rhonchi Gastrointestinal: normoactive bowel sounds, non-distended Integumentary: normal Extremities: no cyanosis, no edema, no ischemia or petechiae Neurologic: non-focal exam, other (sleepy) Psychiatric: mood appropriate, affect normal CBC and BMP: 03/15/18 05:23 03/15/18 05:23 ABG, PT/INR, D-dimer: PT/INR, D-dimer PT 12.9 Sec. (12.2-14.9) 03/06/18 23:22 INR 0.93 (0.87-1.13) 03/06/18 23:22 Abnormal lab findings: Abnormal Labs 03/06/18 03/06/18 03/06/18 23:19 23:19 23:37 WBC 12.7 H RBC Hgb Hct RDW Plt Count Lymph % (Auto) 11.3 L [place] % (Auto) [place] # Baso # Seg Neutrophils % 83.6 H Seg Neuts % (Manual) Lymphocytes % (Manual) Monocytes % (Manual) Seg Neutrophils # 10.6 H Seg Neutrophils # Man Monocytes # (Manual) Basophils # (Manual) Sodium 134 L Potassium Chloride 95.2 L Carbon Dioxide 21 L BUN Creatinine 0.6 L Glucose POC Glucose Lactic Acid 2.20 H* Calcium Magnesium AST 59 H ALT 57 H Alkaline Phosphatase 195 H Total Creatine Kinase CK-MB (CK-2) Rel Index Albumin Vancomycin Trough 03/07/18 03/07/18 03/07/18 00:49 02:36 02:36 WBC RBC Hgb Hct RDW Plt Count Lymph % (Auto) [place] % (Auto) [place] # Baso # Seg Neutrophils % Seg Neuts % (Manual) Lymphocytes % (Manual) Monocytes % (Manual) Seg Neutrophils # Seg Neutrophils # Man Monocytes # (Manual) Basophils # (Manual) Sodium Potassium Chloride Carbon Dioxide BUN Creatinine Glucose POC Glucose Lactic Acid 2.70 H* Calcium Magnesium AST ALT Alkaline Phosphatase Total Creatine Kinase 14 L 20 L CK-MB (CK-2) Rel Index 7.1 H 5.0 H Albumin Vancomycin Trough 03/07/18 03/07/18 03/07/18 09:14 13:11 13:11 WBC 12.8 H RBC Hgb Hct RDW Plt Count 139 L Lymph % (Auto) [place] % (Auto) [place] # 0.9 H Baso # Seg Neutrophils % 75.0 H Seg Neuts % (Manual) Lymphocytes % (Manual) Monocytes % (Manual) Seg Neutrophils # 9.6 H Seg Neutrophils # Man Monocytes # (Manual) Basophils # (Manual) Sodium Potassium Chloride Carbon Dioxide 20 L BUN Creatinine 0.5 L Glucose 112 H POC Glucose Lactic Acid Calcium 7.8 L D Magnesium 1.60 L AST ALT Alkaline Phosphatase Total Creatine Kinase 23 L CK-MB (CK-2) Rel Index 4.3 H Albumin Vancomycin Trough 03/08/18 03/08/18 03/09/18 05:08 05:08 06:55 WBC 12.6 H 16.2 H RBC Hgb Hct RDW Plt Count Lymph % (Auto) [place] % (Auto) 9.5 H [place] # 1.2 H Baso # Seg Neutrophils % 76.2 H Seg Neuts % (Manual) Lymphocytes % (Manual) Monocytes % (Manual) 13.0 H Seg Neutrophils # 9.6 H Seg Neutrophils # Man 10.7 H Monocytes # (Manual) 2.1 H Basophils # (Manual) Sodium 130 L D Potassium 3.1 L D Chloride Carbon Dioxide BUN 5 L Creatinine 0.5 L Glucose 124 H POC Glucose Lactic Acid Calcium Magnesium AST ALT Alkaline Phosphatase Total Creatine Kinase CK-MB (CK-2) Rel Index Albumin Vancomycin Trough 03/09/18 03/09/18 03/10/18 06:55 20:55 05:20 WBC RBC Hgb Hct RDW Plt Count Lymph % (Auto) [place] % (Auto) [place] # Baso # Seg Neutrophils % Seg Neuts % (Manual) Lymphocytes % (Manual) Monocytes % (Manual) Seg Neutrophils # Seg Neutrophils # Man Monocytes # (Manual) Basophils # (Manual) Sodium 133 L Potassium 3.5 L Chloride Carbon Dioxide BUN 4 L Creatinine 0.4 L Glucose 105 H POC Glucose 123 H Lactic Acid Calcium Magnesium AST ALT Alkaline Phosphatase Total Creatine Kinase CK-MB (CK-2) Rel Index Albumin Vancomycin Trough 4.5 L 03/10/18 03/10/18 03/11/18 05:20 05:20 06:44 WBC 19.2 H 20.4 H RBC 3.63 L Hgb Hct RDW 15.4 H Plt Count 445 H Lymph % (Auto) [place] % (Auto) [place] # Baso # Seg Neutrophils % Seg Neuts % (Manual) 76.0 H Lymphocytes % (Manual) 13.0 L Monocytes % (Manual) 12.0 H Seg Neutrophils # Seg Neutrophils # Man 13.4 H 15.5 H Monocytes # (Manual) 2.3 H 1.4 H Basophils # (Manual) 0.2 H 0.2 H Sodium 132 L Potassium Chloride Carbon Dioxide 20 L BUN 4 L Creatinine 0.4 L Glucose 109 H POC Glucose Lactic Acid Calcium Magnesium AST ALT Alkaline Phosphatase 177 H Total Creatine Kinase CK-MB (CK-2) Rel Index Albumin 2.7 L Vancomycin Trough 03/11/18 03/12/18 03/12/18 06:44 07:07 07:07 WBC 25.3 H RBC 3.48 L Hgb Hct RDW 15.3 H Plt Count 568 H Lymph % (Auto) [place] % (Auto) [place] # Baso # Seg Neutrophils % Seg Neuts % (Manual) 72.0 H Lymphocytes % (Manual) Monocytes % (Manual) Seg Neutrophils # Seg Neutrophils # Man 18.2 H Monocytes # (Manual) 1.5 H Basophils # (Manual) Sodium 135 L 135 L Potassium Chloride 96.5 L Carbon Dioxide BUN 5 L 5 L Creatinine 0.4 L 0.4 L Glucose 102 H POC Glucose Lactic Acid Calcium 8.0 L 8.3 L Magnesium AST ALT Alkaline Phosphatase Total Creatine Kinase CK-MB (CK-2) Rel Index Albumin Vancomycin Trough 03/13/18 03/13/18 03/13/18 06:16 06:30 06:30 WBC 20.9 H RBC 3.38 L Hgb 9.7 L Hct 29.6 L RDW Plt Count 671 H Lymph % (Auto) [place] % (Auto) [place] # Baso # Seg Neutrophils % Seg Neuts % (Manual) 82.0 H Lymphocytes % (Manual) 12.0 L Monocytes % (Manual) Seg Neutrophils # Seg Neutrophils # Man 17.1 H Monocytes # (Manual) Basophils # (Manual) Sodium Potassium Chloride Carbon Dioxide BUN 6 L Creatinine 0.4 L Glucose 102 H POC Glucose 117 H Lactic Acid Calcium Magnesium AST ALT Alkaline Phosphatase Total Creatine Kinase CK-MB (CK-2) Rel Index Albumin Vancomycin Trough 03/13/18 03/14/18 03/14/18 21:25 08:11 08:11 WBC 16.4 H RBC 3.43 L Hgb 9.8 L Hct 29.9 L RDW Plt Count 679 H Lymph % (Auto) [place] % (Auto) [place] # 1.1 H Baso # 0.3 H Seg Neutrophils % 76.9 H Seg Neuts % (Manual) Lymphocytes % (Manual) Monocytes % (Manual) Seg Neutrophils # 12.6 H Seg Neutrophils # Man Monocytes # (Manual) Basophils # (Manual) Sodium 135 L Potassium Chloride Carbon Dioxide BUN 5 L Creatinine 0.4 L Glucose POC Glucose 139 H Lactic Acid Calcium 8.3 L Magnesium AST ALT Alkaline Phosphatase Total Creatine Kinase CK-MB (CK-2) Rel Index Albumin Vancomycin Trough 03/15/18 03/15/18 05:23 05:23 WBC 15.9 H RBC 3.26 L Hgb 9.6 L Hct 28.7 L RDW Plt Count 727 H Lymph % (Auto) [place] % (Auto) 7.5 H [place] # 1.2 H Baso # Seg Neutrophils % 74.6 H Seg Neuts % (Manual) Lymphocytes % (Manual) Monocytes % (Manual) Seg Neutrophils # 11.8 H Seg Neutrophils # Man Monocytes # (Manual) Basophils # (Manual) Sodium Potassium Chloride Carbon Dioxide 21 L BUN 4 L Creatinine 0.4 L Glucose POC Glucose Lactic Acid Calcium Magnesium AST ALT Alkaline Phosphatase Total Creatine Kinase CK-MB (CK-2) Rel Index Albumin Vancomycin Trough
[2018-03-15] MEDS: ELIQUIS PO SCH ×2 (12:06→22:04)
--- NOTE | 2018-03-15 14:11 | Progress Note ---
Assessment and Plan Assessment and plan: Sepsis. - Patient with MRSA bacteremia and bilateral pneumonia. - ID following. Continue antibiotics per recommendations-- IV Ceftaroline - MRI of the spine to R/O discitis, abscess - Leukocytosis is improved. MRSA bacteremia. Continue antibiotics per ID. - Blood culture grew MRSA, contact isolation, echo showed no vegetation, repeat blood culture is negative Bilateral pneumonia. - a nodular infiltrate seen on the right side which could correspond to a septic embolus - CT chest completed on 03/13/18 revealed large complex left pleural fluid collection which is likely loculated. - TTE was normal but given her history of IVDU, she will undergo CHANCE today. Loculated pleural effusion. -Pulmonary consultation with regards to treatment i.e. thoracentesis/chest tube/ decortication etc. Discussed with Dr. Haley. Plan to attempt to transfer patient to facility with thoracic surgery. If this is not possible, then plan for CT guided chest tube placement on Saturday. History IVDU. - Hepatitis B, C screens negative. Anxiety disorder - Continue Xanax when necessary Pleuritic chest pain - Likely due to pneumonia - Pain control DVT prophylaxis - Continue eliquis Disposition - Continue inpatient care History Interval history: 37-year-old female with past medical history significant for hypertension, IV drug abuse, superficial venous thrombosis presented to the emergency department complaining of pleuritic left-sided chest pain. Patient had fever and elevated lactic acid and leukocytosis on admission which persists at this time. c/o h/a attributed to morphine Hospitalist Physical - Constitutional Vitals: Temp Pulse Resp BP Pulse Ox 98.0 F 98 H 20 150/104 98 03/15/18 12:25 03/15/18 12:25 03/15/18 12:25 03/15/18 12:25 03/15/18 12:25 General appearance: Present: no acute distress - EENT Eyes: Present: PERRL, EOM intact ENT: hearing intact, clear oral mucosa, dentition normal - Neck Neck: Present: supple, normal ROM - Respiratory Respiratory effort: normal Respiratory: bilateral: CTA - Cardiovascular Rhythm: regular Heart Sounds: Present: S1 & S2. Absent: gallop, rub - Extremities Extremities: no ischemia, No edema, Full ROM - Abdominal General gastrointestinal: soft, non-tender, non-distended, normal bowel sounds - Integumentary Integumentary: Present: clear, warm, dry - Neurologic Neurologic: CNII-XII intact, moves all extremities Results - Labs CBC & Chem 7: 03/15/18 05:23 03/15/18 05:23 Labs: Laboratory Last Values WBC 15.9 K/mm3 (4.5-11.0) H 03/15/18 05:23 RBC 3.26 M/mm3 (3.65-5.03) L 03/15/18 05:23 Hgb 9.6 gm/dl (10.1-14.3) L 03/15/18 05:23 Hct 28.7 % (30.3-42.9) L 03/15/18 05:23 MCV 88 fl (79-97) 03/15/18 05:23 MCH 30 pg (28-32) 03/15/18 05:23 MCHC 34 % (30-34) 03/15/18 05:23 RDW 14.8 % (13.2-15.2) 03/15/18 05:23 Plt Count 727 K/mm3 (140-440) H 03/15/18 05:23 Lymph % (Auto) 16.5 % (13.4-35.0) 03/15/18 05:23 [place] % (Auto) 7.5 % (0.0-7.3) H 03/15/18 05:23 Eos % (Auto) 0.9 % (0.0-4.3) 03/15/18 05:23 Baso % (Auto) 0.5 % (0.0-1.8) 03/15/18 05:23 Lymph # 2.6 K/mm3 (1.2-5.4) 03/15/18 05:23 [place] # 1.2 K/mm3 (0.0-0.8) H 03/15/18 05:23 Eos # 0.1 K/mm3 (0.0-0.4) 03/15/18 05:23 Baso # 0.1 K/mm3 (0.0-0.1) 03/15/18 05:23 Add Manual Diff Complete 03/13/18 06:30 Total Counted 100 03/13/18 06:30 Seg Neutrophils % 74.6 % (40.0-70.0) H 03/15/18 05:23 Seg Neuts % (Manual) 82.0 % (40.0-70.0) H 03/13/18 06:30 Band Neutrophils % 1.0 % 03/13/18 06:30 Lymphocytes % (Manual) 12.0 % (13.4-35.0) L 03/13/18 06:30 Reactive Lymphs % (Man) 1.0 % 03/13/18 06:30 Monocytes % (Manual) 2.0 % (0.0-7.3) 03/13/18 06:30 Eosinophils % (Manual) 0 % (0.0-4.3) 03/13/18 06:30 Basophils % (Manual) 0 % (0.0-1.8) 03/13/18 06:30 Metamyelocytes % 2.0 % 03/13/18 06:30 Myelocytes % 0 % 03/13/18 06:30 Promyelocytes % 0 % 03/13/18 06:30 Blast Cells % 0 % 03/13/18 06:30 Nucleated RBC % Not Reportable 03/13/18 06:30 Seg Neutrophils # 11.8 K/mm3 (1.8-7.7) H 03/15/18 05:23 Seg Neutrophils # Man 17.1 K/mm3 (1.8-7.7) H 03/13/18 06:30 Band Neutrophils # 0.2 K/mm3 03/13/18 06:30 Lymphocytes # (Manual) 2.5 K/mm3 (1.2-5.4) 03/13/18 06:30 Abs React Lymphs (Man) 0.2 K/mm3 03/13/18 06:30 Monocytes # (Manual) 0.4 K/mm3 (0.0-0.8) 03/13/18 06:30 Eosinophils # (Manual) 0.0 K/mm3 (0.0-0.4) 03/13/18 06:30 Basophils # (Manual) 0.0 K/mm3 (0.0-0.1) 03/13/18 06:30 Metamyelocytes # 0.4 K/mm3 03/13/18 06:30 Myelocytes # 0.0 K/mm3 03/13/18 06:30 Promyelocytes # 0.0 K/mm3 03/13/18 06:30 Blast Cells # 0.0 K/mm3 03/13/18 06:30 WBC Morphology Not Reportable 03/13/18 06:30 Hypersegmented Neuts Not Reportable 03/13/18 06:30 Hyposegmented Neuts Not Reportable 03/13/18 06:30 Hypogranular Neuts Not Reportable 03/13/18 06:30 Smudge Cells Not Reportable 03/13/18 06:30 Toxic Granulation Not Reportable 03/13/18 06:30 Toxic Vacuolation Not Reportable 03/13/18 06:30 Dohle Bodies Not Reportable 03/13/18 06:30 Pelger-Huet Anomaly Not Reportable 03/13/18 06:30 Yoni Rods Not Reportable 03/13/18 06:30 Platelet Estimate Cons 03/13/18 06:30 Clumped Platelets Not Reportable 03/13/18 06:30 Plt Clumps, EDTA Not Reportable 03/13/18 06:30 Large Platelets Few 03/13/18 06:30 Giant Platelets Rare 03/13/18 06:30 Platelet Satelliting Not Reportable 03/13/18 06:30 Plt Morphology Comment Not Reportable 03/13/18 06:30 RBC Morphology Not Reportable 03/13/18 06:30 Dimorphic RBCs Not Reportable 03/13/18 06:30 Polychromasia Not Reportable 03/13/18 06:30 Hypochromasia Not Reportable 03/13/18 06:30 Poikilocytosis Not Reportable 03/13/18 06:30 Anisocytosis 1+ 03/13/18 06:30 Microcytosis Not Reportable 03/13/18 06:30 Macrocytosis Not Reportable 03/13/18 06:30 Spherocytes Not Reportable 03/13/18 06:30 Pappenheimer Bodies Not Reportable 03/13/18 06:30 Sickle Cells Not Reportable 03/13/18 06:30 Target Cells Not Reportable 03/13/18 06:30 Tear Drop Cells Not Reportable 03/13/18 06:30 Ovalocytes Not Reportable 03/13/18 06:30 Helmet Cells Not Reportable 03/13/18 06:30 Lincoln-Jeannette Bodies Not Reportable 03/13/18 06:30 Vesta Rings Not Reportable 03/13/18 06:30 Marie Cells Not Reportable 03/13/18 06:30 Bite Cells Not Reportable 03/13/18 06:30 Crenated Cell Not Reportable 03/13/18 06:30 Elliptocytes Not Reportable 03/13/18 06:30 Acanthocytes (Spur) Not Reportable 03/13/18 06:30 Rouleaux Not Reportable 03/13/18 06:30 Hemoglobin C Crystals Not Reportable 03/13/18 06:30 Schistocytes Not Reportable 03/13/18 06:30 Malaria parasites Not Reportable 03/13/18 06:30 Canelo Bodies Not Reportable 03/13/18 06:30 Hem Pathologist Commnt No 03/13/18 06:30 PT 12.9 Sec. (12.2-14.9) 03/06/18 23:22 INR 0.93 (0.87-1.13) 03/06/18 23:22 VBG pH 7.371 (7.320-7.420) 03/06/18 23:37 Sodium 138 mmol/L (137-145) 03/15/18 05:23 Potassium 3.6 mmol/L (3.6-5.0) 03/15/18 05:23 Chloride 101.1 mmol/L (98-107) 03/15/18 05:23 Carbon Dioxide 21 mmol/L (22-30) L 03/15/18 05:23 Anion Gap 20 mmol/L 03/15/18 05:23 BUN 4 mg/dL (7-17) L 03/15/18 05:23 Creatinine 0.4 mg/dL (0.7-1.2) L 03/15/18 05:23 Estimated GFR > 60 ml/min 03/15/18 05:23 BUN/Creatinine Ratio 10 % 03/15/18 05:23 Glucose 87 mg/dL (65-100) 03/15/18 05:23 POC Glucose 79 (70-105) 03/14/18 06:07 Lactic Acid 1.40 mmol/L (0.7-2.0) 03/07/18 13:34 Calcium 8.6 mg/dL (8.4-10.2) 03/15/18 05:23 Magnesium 1.80 mg/dL (1.7-2.3) 03/07/18 Unknown Total Bilirubin 0.90 mg/dL (0.1-1.2) 03/10/18 05:20 AST 13 units/L (5-40) 03/10/18 05:20 ALT 21 units/L (7-56) 03/10/18 05:20 Alkaline Phosphatase 177 units/L (35-129) H 03/10/18 05:20 Total Creatine Kinase 23 units/L (30-135) L 03/07/18 09:14 CK-MB (CK-2) < 1.0 ng/mL (0.0-4.0) 03/07/18 09:14 CK-MB (CK-2) Rel Index 4.3 (0-4) H 03/07/18 09:14 Troponin T < 0.010 ng/mL (0.00-0.029) 03/07/18 09:14 Total Protein 7.2 g/dL (6.3-8.2) 03/10/18 05:20 Albumin 2.7 g/dL (3.9-5) L 03/10/18 05:20 Albumin/Globulin Ratio 0.6 % 03/10/18 05:20 Urine Color Joanna (Yellow) 03/06/18 00:46 Urine Turbidity Slightly-cloudy (Clear) 03/06/18 00:46 Urine pH 5.0 (5.0-7.0) 03/06/18 00:46 Ur Specific [place] 1.024 (1.003-1.030) 03/06/18 00:46 Urine Protein 100 mg/dl mg/dL (Negative) 03/06/18 00:46 Urine Glucose (UA) Neg mg/dL (Negative) 03/06/18 00:46 Urine Ketones Neg mg/dL (Negative) 03/06/18 00:46 Urine Blood Lg (Negative) 03/06/18 00:46 Urine Nitrite Neg (Negative) 03/06/18 00:46 Urine Bilirubin Neg (Negative) 03/06/18 00:46 Urine Urobilinogen 2.0 mg/dL (<2.0) 03/06/18 00:46 Ur Leukocyte Esterase Neg (Negative) 03/06/18 00:46 Urine WBC (Auto) 5.0 /HPF (0.0-6.0) 03/06/18 00:46 Urine RBC (Auto) > 182.0 /HPF (0.0-6.0) 10 00:46 U Epithel Cells (Auto) 5.0 /HPF (0-13.0) 03/06/18 00:46 Urine Mucus Few /HPF 03/06/18 00:46 Vancomycin Trough 4.5 ug/mL (5.0-20.0) L 03/10/18 05:20 Urine Opiates Screen Presumptive negative 03/07/18 04:35 Urine Methadone Screen Presumptive negative 03/07/18 04:35 Ur Barbiturates Screen Presumptive negative 03/07/18 04:35 Ur Phencyclidine Scrn Presumptive negative 03/07/18 04:35 Ur Amphetamines Screen Presumptive negative 03/07/18 04:35 U Benzodiazepines Scrn Presumptive negative 03/07/18 04:35 Urine Cocaine Screen Presumptive negative 03/07/18 04:35 U Marijuana (THC) Screen Presumptive negative 03/07/18 04:35 Drugs of Abuse Note Disclamer 03/07/18 04:35 Hep Bs Antigen Non-reactive (Negative) 03/07/18 23:01 Hep B Core Total Ab Nonreactive (Nonreactive) 03/07/18 23:01 Hepatitis C Antibody Non-reactive (NonReactive) 03/07/18 23:01 HIV 1&2 Antibody Rapid Non react (Non React) 03/10/18 12:50 HIV P24 Antigen Non react (Non React) 03/10/18 12:50
[2018-03-15] MEDS: MOTRIN PO PRN (17:11)
[2018-03-16] MEDS: PERCOCET 5/325 PO PRN ×3 (01:32→13:42)
[2018-03-16 04:59] LABS: Basophils # (Auto) 0.1 K/mm3 (0.0-0.1); Basophils % (Auto) 0.5 % (0.0-1.8); Eosinophils # (Auto) 0.1 K/mm3 (0.0-0.4); Eosinophils % (Auto) 1.2 % (0.0-4.3); Hematocrit 27.9 % (30.3-42.9); Hemoglobin 9.1 gm/dl (10.1-14.3); Lymphocytes # (Auto) 2.6 K/mm3 (1.2-5.4); Lymphocytes % (Auto) 21.6 % (13.4-35.0); Mean Corpuscular HGB Conc 33 % (30-34); Mean Corpuscular Hemoglobin 29 pg (28-32); Mean Corpuscular Volume 88 fl (79-97); Monocytes # (Auto) 0.9 K/mm3 (0.0-0.8); Monocytes % (Auto) 7.1 % (0.0-7.3); Platelet Count 750 K/mm3 (140-440); Red Blood Count 3.17 M/mm3 (3.65-5.03); Red Cell Distribution Width 14.5 % (13.2-15.2)
[2018-03-16 05:20] LABS: BUN/Creatinine Ratio 13; Blood Urea Nitrogen 5 mg/dL (7-17); Calcium 8.8 mg/dL (8.4-10.2); Hemolysis Index 11
[2018-03-16] MEDS: NACL 0.9% IV SCH ×3 (05:34→22:02)
[2018-03-16] MEDS: TEFLARO IV SCH ×3 (05:34→22:02)
[2018-03-16] MEDS: DUONEB *Not for PRN Use IH SCH ×3 (09:43→20:48)
[2018-03-16] MEDS: ELIQUIS PO SCH (09:51)
[2018-03-16] MEDS: MIRALAX 3350 PO SCH ×3 (10:06→22:05)
[2018-03-16] MEDS: SODIUM CHLORIDE FLUSH SYRINGE 10 ML IV SCH ×2 (10:07→22:03)
--- NOTE | 2018-03-16 10:36 | Progress Note ---
Assessment and Plan Assessment and plan: Sepsis. - Patient with MRSA bacteremia and bilateral pneumonia. - ID following. Continue antibiotics per recommendations-- IV Ceftaroline - MRI of the spine to R/O discitis, abscess - Leukocytosis is improved. MRSA bacteremia. Continue antibiotics per ID. - Blood culture grew MRSA, contact isolation, echo showed no vegetation, repeat blood culture is negative Bilateral pneumonia. - a nodular infiltrate seen on the right side which could correspond to a septic embolus - CT chest completed on 03/13/18 revealed large complex left pleural fluid collection which is likely loculated. - TTE was normal but given her history of IVDU, she will undergo CHANCE today. Loculated pleural effusion. -Pulmonary consultation with regards to treatment i.e. thoracentesis/chest tube/ decortication etc. Discussed with Dr. Haley. Plan to attempt to transfer patient to facility with thoracic surgery. If this is not possible, then plan for CT guided chest tube placement on Saturday. Hold eliquis Recent dx of Superficial venous thrombosis -As above. Holding eliquis for chest tube placement. Resume after procedure. History IVDU. - Hepatitis B, C screens negative. Anxiety disorder - Continue Xanax when necessary Pleuritic chest pain - Likely due to pneumonia - Pain control DVT prophylaxis - Continue eliquis Disposition - Continue inpatient care History Interval history: 37-year-old female with past medical history significant for hypertension, IV drug abuse, superficial venous thrombosis presented to the emergency department complaining of pleuritic left-sided chest pain. Patient had fever and elevated lactic acid and leukocytosis on admission which persists at this time. Hospitalist Physical - Constitutional Vitals: Temp Pulse Resp BP Pulse Ox 98.5 F 109 H 19 137/97 94 03/16/18 04:39 03/16/18 10:00 03/16/18 08:38 03/16/18 09:32 03/16/18 09:32 General appearance: Present: no acute distress - EENT Eyes: Present: PERRL, EOM intact ENT: hearing intact, clear oral mucosa, dentition normal - Neck Neck: Present: supple, normal ROM - Respiratory Respiratory effort: normal Respiratory: bilateral: CTA - Cardiovascular Rhythm: regular Heart Sounds: Present: S1 & S2. Absent: gallop, rub - Extremities Extremities: no ischemia, No edema, Full ROM - Abdominal General gastrointestinal: soft, non-tender, non-distended, normal bowel sounds - Integumentary Integumentary: Present: clear, warm, dry - Neurologic Neurologic: CNII-XII intact, moves all extremities Results - Labs CBC & Chem 7: 03/16/18 03:19 03/16/18 03:19 Labs: Laboratory Last Values WBC 12.0 K/mm3 (4.5-11.0) H 03/16/18 03:19 RBC 3.17 M/mm3 (3.65-5.03) L 03/16/18 03:19 Hgb 9.1 gm/dl (10.1-14.3) L 03/16/18 03:19 Hct 27.9 % (30.3-42.9) L 03/16/18 03:19 MCV 88 fl (79-97) 03/16/18 03:19 MCH 29 pg (28-32) 03/16/18 03:19 MCHC 33 % (30-34) 03/16/18 03:19 RDW 14.5 % (13.2-15.2) 03/16/18 03:19 Plt Count 750 K/mm3 (140-440) H 03/16/18 03:19 Lymph % (Auto) 21.6 % (13.4-35.0) 03/16/18 03:19 [place] % (Auto) 7.1 % (0.0-7.3) 03/16/18 03:19 Eos % (Auto) 1.2 % (0.0-4.3) 03/16/18 03:19 Baso % (Auto) 0.5 % (0.0-1.8) 03/16/18 03:19 Lymph # 2.6 K/mm3 (1.2-5.4) 03/16/18 03:19 [place] # 0.9 K/mm3 (0.0-0.8) H 03/16/18 03:19 Eos # 0.1 K/mm3 (0.0-0.4) 03/16/18 03:19 Baso # 0.1 K/mm3 (0.0-0.1) 03/16/18 03:19 Add Manual Diff Complete 03/13/18 06:30 Total Counted 100 03/13/18 06:30 Seg Neutrophils % 69.6 % (40.0-70.0) 03/16/18 03:19 Seg Neuts % (Manual) 82.0 % (40.0-70.0) H 03/13/18 06:30 Band Neutrophils % 1.0 % 03/13/18 06:30 Lymphocytes % (Manual) 12.0 % (13.4-35.0) L 03/13/18 06:30 Reactive Lymphs % (Man) 1.0 % 03/13/18 06:30 Monocytes % (Manual) 2.0 % (0.0-7.3) 03/13/18 06:30 Eosinophils % (Manual) 0 % (0.0-4.3) 03/13/18 06:30 Basophils % (Manual) 0 % (0.0-1.8) 03/13/18 06:30 Metamyelocytes % 2.0 % 03/13/18 06:30 Myelocytes % 0 % 03/13/18 06:30 Promyelocytes % 0 % 03/13/18 06:30 Blast Cells % 0 % 03/13/18 06:30 Nucleated RBC % Not Reportable 03/13/18 06:30 Seg Neutrophils # 8.4 K/mm3 (1.8-7.7) H 03/16/18 03:19 Seg Neutrophils # Man 17.1 K/mm3 (1.8-7.7) H 03/13/18 06:30 Band Neutrophils # 0.2 K/mm3 03/13/18 06:30 Lymphocytes # (Manual) 2.5 K/mm3 (1.2-5.4) 03/13/18 06:30 Abs React Lymphs (Man) 0.2 K/mm3 03/13/18 06:30 Monocytes # (Manual) 0.4 K/mm3 (0.0-0.8) 03/13/18 06:30 Eosinophils # (Manual) 0.0 K/mm3 (0.0-0.4) 03/13/18 06:30 Basophils # (Manual) 0.0 K/mm3 (0.0-0.1) 03/13/18 06:30 Metamyelocytes # 0.4 K/mm3 03/13/18 06:30 Myelocytes # 0.0 K/mm3 03/13/18 06:30 Promyelocytes # 0.0 K/mm3 03/13/18 06:30 Blast Cells # 0.0 K/mm3 03/13/18 06:30 WBC Morphology Not Reportable 03/13/18 06:30 Hypersegmented Neuts Not Reportable 03/13/18 06:30 Hyposegmented Neuts Not Reportable 03/13/18 06:30 Hypogranular Neuts Not Reportable 03/13/18 06:30 Smudge Cells Not Reportable 03/13/18 06:30 Toxic Granulation Not Reportable 03/13/18 06:30 Toxic Vacuolation Not Reportable 03/13/18 06:30 Dohle Bodies Not Reportable 03/13/18 06:30 Pelger-Huet Anomaly Not Reportable 03/13/18 06:30 Yoni Rods Not Reportable 03/13/18 06:30 Platelet Estimate Cons 03/13/18 06:30 Clumped Platelets Not Reportable 03/13/18 06:30 Plt Clumps, EDTA Not Reportable 03/13/18 06:30 Large Platelets Few 03/13/18 06:30 Giant Platelets Rare 03/13/18 06:30 Platelet Satelliting Not Reportable 03/13/18 06:30 Plt Morphology Comment Not Reportable 03/13/18 06:30 RBC Morphology Not Reportable 03/13/18 06:30 Dimorphic RBCs Not Reportable 03/13/18 06:30 Polychromasia Not Reportable 03/13/18 06:30 Hypochromasia Not Reportable 03/13/18 06:30 Poikilocytosis Not Reportable 03/13/18 06:30 Anisocytosis 1+ 03/13/18 06:30 Microcytosis Not Reportable 03/13/18 06:30 Macrocytosis Not Reportable 03/13/18 06:30 Spherocytes Not Reportable 03/13/18 06:30 Pappenheimer Bodies Not Reportable 03/13/18 06:30 Sickle Cells Not Reportable 03/13/18 06:30 Target Cells Not Reportable 03/13/18 06:30 Tear Drop Cells Not Reportable 03/13/18 06:30 Ovalocytes Not Reportable 03/13/18 06:30 Helmet Cells Not Reportable 03/13/18 06:30 [place] Bodies Not Reportable 03/13/18 06:30 [place] Rings Not Reportable 03/13/18 06:30 [place] Cells Not Reportable 03/13/18 06:30 Bite Cells Not Reportable 03/13/18 06:30 Crenated Cell Not Reportable 03/13/18 06:30 Elliptocytes Not Reportable 03/13/18 06:30 Acanthocytes (Spur) Not Reportable 03/13/18 06:30 Rouleaux Not Reportable 03/13/18 06:30 Hemoglobin C Crystals Not Reportable 03/13/18 06:30 Schistocytes Not Reportable 03/13/18 06:30 Malaria parasites Not Reportable 03/13/18 06:30 [place] Bodies Not Reportable 03/13/18 06:30 Hem Pathologist Commnt No 03/13/18 06:30 PT 12.9 Sec. (12.2-14.9) 03/06/18 23:22 INR 0.93 (0.87-1.13) 03/06/18 23:22 VBG pH 7.371 (7.320-7.420) 03/06/18 23:37 Sodium 139 mmol/L (137-145) 03/16/18 03:19 Potassium 4.0 mmol/L (3.6-5.0) 03/16/18 03:19 Chloride 101.2 mmol/L (98-107) 03/16/18 03:19 Carbon Dioxide 25 mmol/L (22-30) 03/16/18 03:19 Anion Gap 17 mmol/L 03/16/18 03:19 BUN 5 mg/dL (7-17) L 03/16/18 03:19 Creatinine 0.4 mg/dL (0.7-1.2) L 03/16/18 03:19 Estimated GFR > 60 ml/min 03/16/18 03:19 BUN/Creatinine Ratio 13 % 03/16/18 03:19 Glucose 90 mg/dL (65-100) 03/16/18 03:19 POC Glucose 79 (70-105) 03/14/18 06:07 Lactic Acid 1.40 mmol/L (0.7-2.0) 03/07/18 13:34 Calcium 8.8 mg/dL (8.4-10.2) 03/16/18 03:19 Magnesium 1.80 mg/dL (1.7-2.3) 03/07/18 Unknown Total Bilirubin 0.90 mg/dL (0.1-1.2) 03/10/18 05:20 AST 13 units/L (5-40) 03/10/18 05:20 ALT 21 units/L (7-56) 03/10/18 05:20 Alkaline Phosphatase 177 units/L (35-129) H 03/10/18 05:20 Total Creatine Kinase 23 units/L (30-135) L 03/07/18 09:14 CK-MB (CK-2) < 1.0 ng/mL (0.0-4.0) 03/07/18 09:14 CK-MB (CK-2) Rel Index 4.3 (0-4) H 03/07/18 09:14 Troponin T < 0.010 ng/mL (0.00-0.029) 03/07/18 09:14 Total Protein 7.2 g/dL (6.3-8.2) 03/10/18 05:20 Albumin 2.7 g/dL (3.9-5) L 03/10/18 05:20 Albumin/Globulin Ratio 0.6 % 03/10/18 05:20 Urine Color [place] (Yellow) 03/06/18 00:46 Urine Turbidity Slightly-cloudy (Clear) 03/06/18 00:46 Urine pH 5.0 (5.0-7.0) 03/06/18 00:46 Ur Specific [place] 1.024 (1.003-1.030) 03/06/18 00:46 Urine Protein 100 mg/dl mg/dL (Negative) 03/06/18 00:46 Urine Glucose (UA) Neg mg/dL (Negative) 03/06/18 00:46 Urine Ketones Neg mg/dL (Negative) 03/06/18 00:46 Urine Blood Lg (Negative) 03/06/18 00:46 Urine Nitrite Neg (Negative) 03/06/18 00:46 Urine Bilirubin Neg (Negative) 03/06/18 00:46 Urine Urobilinogen 2.0 mg/dL (<2.0) 10 00:46 Ur Leukocyte Esterase Neg (Negative) 03/06/18 00:46 Urine WBC (Auto) 5.0 /HPF (0.0-6.0) 03/06/18 00:46 Urine RBC (Auto) > 182.0 /HPF (0.0-6.0) 03/06/18 00:46 U Epithel Cells (Auto) 5.0 /HPF (0-13.0) 03/06/18 00:46 Urine Mucus Few /HPF 03/06/18 00:46 Vancomycin Trough 4.5 ug/mL (5.0-20.0) L 03/10/18 05:20 Urine Opiates Screen Presumptive negative 03/07/18 04:35 Urine Methadone Screen Presumptive negative 03/07/18 04:35 Ur Barbiturates Screen Presumptive negative 03/07/18 04:35 Ur Phencyclidine Scrn Presumptive negative 03/07/18 04:35 Ur Amphetamines Screen Presumptive negative 03/07/18 04:35 U Benzodiazepines Scrn Presumptive negative 03/07/18 04:35 Urine Cocaine Screen Presumptive negative 03/07/18 04:35 U Marijuana (THC) Screen Presumptive negative 03/07/18 04:35 Drugs of Abuse Note Disclamer 03/07/18 04:35 Hep Bs Antigen Non-reactive (Negative) 03/07/18 23:01 Hep B Core Total Ab Nonreactive (Nonreactive) 03/07/18 23:01 Hepatitis C Antibody Non-reactive (NonReactive) 03/07/18 23:01 HIV 1&2 Antibody Rapid Non react (Non React) 03/10/18 12:50 HIV P24 Antigen Non react (Non React) 03/10/18 12:50
--- NOTE | 2018-03-16 10:38 | Progress Note ---
Assessment and Plan Sepsis MRSA bateremia CHANCE is negative for endocarditis Pneumonia Large parapneumonic effusion on CT scan Severe back pain Chest pain, atypical Recent dx of Superficial venous thrombosis on eliquis for oral anticoagulation therapy. Recommendations: No further cardiac work-up is needed Continue ongoing evaluation of pleural effusion - can hold eliquis from cardiac perspective if needed for invasive procedure. Subjective Date of service: 03/16/18 Principal diagnosis: bacteremia Interval history: No cardiac complaints Objective Vital Signs Temp Pulse Resp BP BP Pulse Ox 03/16/18 10:00 109 H 03/16/18 09:32 124 H 137/97 94 03/16/18 08:38 19 03/16/18 04:39 98.5 F 88 20 122/81 95 03/16/18 00:34 98.2 F 96 H 18 126/101 94 03/16/18 00:00 97 H 03/15/18 20:46 2 L 03/15/18 20:21 98.4 F 101 H 20 134/94 94 03/15/18 20:10 98 03/15/18 12:25 98.0 F 98 H 20 150/104 98 03/15/18 12:19 94 H 150/102 03/15/18 12:16 98.0 F 94 H 20 139/104 96 - Physical Examination General: No Apparent Distress HEENT: Positive: PERRL Neck: Positive: neck supple Cardiac: Positive: Reg Rate and Rhythm Lungs: Positive: Decreased Breath Sounds Neuro: Positive: Grossly Intact Abdomen: Positive: Soft Skin: Positive: Clear Extremities: Absent: edema - Labs and Meds CBC 03/16/18 Range/Units 03:19 WBC 12.0 H (4.5-11.0) K/mm3 RBC 3.17 L (3.65-5.03) M/mm3 Hgb 9.1 L (10.1-14.3) gm/dl Hct 27.9 L (30.3-42.9) % Plt Count 750 H (140-440) K/mm3 Lymph # 2.6 (1.2-5.4) K/mm3 [place] # 0.9 H (0.0-0.8) K/mm3 Eos # 0.1 (0.0-0.4) K/mm3 Baso # 0.1 (0.0-0.1) K/mm3 Comprehensive Metabolic Panel 03/16/18 Range/Units 03:19 Sodium 139 (137-145) mmol/L Potassium 4.0 (3.6-5.0) mmol/L Chloride 101.2 (98-107) mmol/L Carbon Dioxide 25 (22-30) mmol/L BUN 5 L (7-17) mg/dL Creatinine 0.4 L (0.7-1.2) mg/dL Glucose 90 (65-100) mg/dL Calcium 8.8 (8.4-10.2) mg/dL
--- NOTE | 2018-03-16 11:23 | Progress Note ---
Assessment and Plan Loculated left pleural effusion. Parapneumonic versus secondary to MRSA bacteremia MRSA bacteremia No endocarditis by CHANCE evaluation Past medical history of IVDU Recommendations 4 sonographic guided thoracentesis drainage tomorrow. Discussed with patient and spouse in detail. If this is not successful, plan is to refer/transferred out for VATS. I discussed again today the indications, treatment issues and benefit of all this with the patient in detail. Continue antibiotics per ID Chest PT DVT prophylaxis Subjective Date of service: 03/16/18 Principal diagnosis: loculated effusionted effusion, MRSA bacteremia Interval history: Still some left-sided chest discomfort. No shortness of breath. Objective Vital Signs - 12hr 03/16/18 03/16/18 03/16/18 00:00 00:34 04:39 Temperature 98.2 F 98.5 F Pulse Rate 97 H 96 H 88 Respiratory 18 20 Rate Blood Pressure 126/101 122/81 O2 Sat by Pulse 94 95 Oximetry 03/16/18 03/16/18 03/16/18 08:38 09:32 10:00 Temperature Pulse Rate 124 H 109 H Respiratory 19 Rate Blood Pressure 137/97 O2 Sat by Pulse 94 Oximetry Constitutional: no acute distress, alert Eyes: non-icteric ENT: oropharynx moist Neck: supple, no JVD Ascultation: Right: clear, Left: diminished breath sounds Gastrointestinal: normoactive bowel sounds, non-distended Integumentary: normal Extremities: no cyanosis, no edema, no ischemia or petechiae Neurologic: non-focal exam, other (sleepy) Psychiatric: mood appropriate, affect normal CBC and BMP: 03/16/18 03:19 03/16/18 03:19 ABG, PT/INR, D-dimer: PT/INR, D-dimer PT 12.9 Sec. (12.2-14.9) 03/06/18 23:22 INR 0.93 (0.87-1.13) 03/06/18 23:22 Abnormal lab findings: Abnormal Labs 03/06/18 03/06/18 03/06/18 23:19 23:19 23:37 WBC 12.7 H RBC Hgb Hct RDW Plt Count Lymph % (Auto) 11.3 L [place] % (Auto) [place] # Baso # Seg Neutrophils % 83.6 H Seg Neuts % (Manual) Lymphocytes % (Manual) Monocytes % (Manual) Seg Neutrophils # 10.6 H Seg Neutrophils # Man Monocytes # (Manual) Basophils # (Manual) Sodium 134 L Potassium Chloride 95.2 L Carbon Dioxide 21 L BUN Creatinine 0.6 L Glucose POC Glucose Lactic Acid 2.20 H* Calcium Magnesium AST 59 H ALT 57 H Alkaline Phosphatase 195 H Total Creatine Kinase CK-MB (CK-2) Rel Index Albumin Vancomycin Trough 03/07/18 03/07/18 03/07/18 00:49 02:36 02:36 WBC RBC Hgb Hct RDW Plt Count Lymph % (Auto) [place] % (Auto) [place] # Baso # Seg Neutrophils % Seg Neuts % (Manual) Lymphocytes % (Manual) Monocytes % (Manual) Seg Neutrophils # Seg Neutrophils # Man Monocytes # (Manual) Basophils # (Manual) Sodium Potassium Chloride Carbon Dioxide BUN Creatinine Glucose POC Glucose Lactic Acid 2.70 H* Calcium Magnesium AST ALT Alkaline Phosphatase Total Creatine Kinase 14 L 20 L CK-MB (CK-2) Rel Index 7.1 H 5.0 H Albumin Vancomycin Trough 03/07/18 03/07/18 03/07/18 09:14 13:11 13:11 WBC 12.8 H RBC Hgb Hct RDW Plt Count 139 L Lymph % (Auto) [place] % (Auto) [place] # 0.9 H Baso # Seg Neutrophils % 75.0 H Seg Neuts % (Manual) Lymphocytes % (Manual) Monocytes % (Manual) Seg Neutrophils # 9.6 H Seg Neutrophils # Man Monocytes # (Manual) Basophils # (Manual) Sodium Potassium Chloride Carbon Dioxide 20 L BUN Creatinine 0.5 L Glucose 112 H POC Glucose Lactic Acid Calcium 7.8 L D Magnesium 1.60 L AST ALT Alkaline Phosphatase Total Creatine Kinase 23 L CK-MB (CK-2) Rel Index 4.3 H Albumin Vancomycin Trough 03/08/18 03/08/18 03/09/18 05:08 05:08 06:55 WBC 12.6 H 16.2 H RBC Hgb Hct RDW Plt Count Lymph % (Auto) [place] % (Auto) 9.5 H [place] # 1.2 H Baso # Seg Neutrophils % 76.2 H Seg Neuts % (Manual) Lymphocytes % (Manual) Monocytes % (Manual) 13.0 H Seg Neutrophils # 9.6 H Seg Neutrophils # Man 10.7 H Monocytes # (Manual) 2.1 H Basophils # (Manual) Sodium 130 L D Potassium 3.1 L D Chloride Carbon Dioxide BUN 5 L Creatinine 0.5 L Glucose 124 H POC Glucose Lactic Acid Calcium Magnesium AST ALT Alkaline Phosphatase Total Creatine Kinase CK-MB (CK-2) Rel Index Albumin Vancomycin Trough 03/09/18 03/09/18 03/10/18 06:55 20:55 05:20 WBC RBC Hgb Hct RDW Plt Count Lymph % (Auto) [place] % (Auto) [place] # Baso # Seg Neutrophils % Seg Neuts % (Manual) Lymphocytes % (Manual) Monocytes % (Manual) Seg Neutrophils # Seg Neutrophils # Man Monocytes # (Manual) Basophils # (Manual) Sodium 133 L Potassium 3.5 L Chloride Carbon Dioxide BUN 4 L Creatinine 0.4 L Glucose 105 H POC Glucose 123 H Lactic Acid Calcium Magnesium AST ALT Alkaline Phosphatase Total Creatine Kinase CK-MB (CK-2) Rel Index Albumin Vancomycin Trough 4.5 L 03/10/18 03/10/18 03/11/18 05:20 05:20 06:44 WBC 19.2 H 20.4 H RBC 3.63 L Hgb Hct RDW 15.4 H Plt Count 445 H Lymph % (Auto) [place] % (Auto) [place] # Baso # Seg Neutrophils % Seg Neuts % (Manual) 76.0 H Lymphocytes % (Manual) 13.0 L Monocytes % (Manual) 12.0 H Seg Neutrophils # Seg Neutrophils # Man 13.4 H 15.5 H Monocytes # (Manual) 2.3 H 1.4 H Basophils # (Manual) 0.2 H 0.2 H Sodium 132 L Potassium Chloride Carbon Dioxide 20 L BUN 4 L Creatinine 0.4 L Glucose 109 H POC Glucose Lactic Acid Calcium Magnesium AST ALT Alkaline Phosphatase 177 H Total Creatine Kinase CK-MB (CK-2) Rel Index Albumin 2.7 L Vancomycin Trough 03/11/18 03/12/18 03/12/18 06:44 07:07 07:07 WBC 25.3 H RBC 3.48 L Hgb Hct RDW 15.3 H Plt Count 568 H Lymph % (Auto) [place] % (Auto) [place] # Baso # Seg Neutrophils % Seg Neuts % (Manual) 72.0 H Lymphocytes % (Manual) Monocytes % (Manual) Seg Neutrophils # Seg Neutrophils # Man 18.2 H Monocytes # (Manual) 1.5 H Basophils # (Manual) Sodium 135 L 135 L Potassium Chloride 96.5 L Carbon Dioxide BUN 5 L 5 L Creatinine 0.4 L 0.4 L Glucose 102 H POC Glucose Lactic Acid Calcium 8.0 L 8.3 L Magnesium AST ALT Alkaline Phosphatase Total Creatine Kinase CK-MB (CK-2) Rel Index Albumin Vancomycin Trough 03/13/18 03/13/18 03/13/18 06:16 06:30 06:30 WBC 20.9 H RBC 3.38 L Hgb 9.7 L Hct 29.6 L RDW Plt Count 671 H Lymph % (Auto) [place] % (Auto) [place] # Baso # Seg Neutrophils % Seg Neuts % (Manual) 82.0 H Lymphocytes % (Manual) 12.0 L Monocytes % (Manual) Seg Neutrophils # Seg Neutrophils # Man 17.1 H Monocytes # (Manual) Basophils # (Manual) Sodium Potassium Chloride Carbon Dioxide BUN 6 L Creatinine 0.4 L Glucose 102 H POC Glucose 117 H Lactic Acid Calcium Magnesium AST ALT Alkaline Phosphatase Total Creatine Kinase CK-MB (CK-2) Rel Index Albumin Vancomycin Trough 03/13/18 03/14/18 03/14/18 21:25 08:11 08:11 WBC 16.4 H RBC 3.43 L Hgb 9.8 L Hct 29.9 L RDW Plt Count 679 H Lymph % (Auto) [place] % (Auto) [place] # 1.1 H Baso # 0.3 H Seg Neutrophils % 76.9 H Seg Neuts % (Manual) Lymphocytes % (Manual) Monocytes % (Manual) Seg Neutrophils # 12.6 H Seg Neutrophils # Man Monocytes # (Manual) Basophils # (Manual) Sodium 135 L Potassium Chloride Carbon Dioxide BUN 5 L Creatinine 0.4 L Glucose POC Glucose 139 H Lactic Acid Calcium 8.3 L Magnesium AST ALT Alkaline Phosphatase Total Creatine Kinase CK-MB (CK-2) Rel Index Albumin Vancomycin Trough 03/15/18 03/15/18 03/16/18 05:23 05:23 03:19 WBC 15.9 H 12.0 H RBC 3.26 L 3.17 L Hgb 9.6 L 9.1 L Hct 28.7 L 27.9 L RDW Plt Count 727 H 750 H Lymph % (Auto) [place] % (Auto) 7.5 H [place] # 1.2 H 0.9 H Baso # Seg Neutrophils % 74.6 H Seg Neuts % (Manual) Lymphocytes % (Manual) Monocytes % (Manual) Seg Neutrophils # 11.8 H 8.4 H Seg Neutrophils # Man Monocytes # (Manual) Basophils # (Manual) Sodium Potassium Chloride Carbon Dioxide 21 L BUN 4 L Creatinine 0.4 L Glucose POC Glucose Lactic Acid Calcium Magnesium AST ALT Alkaline Phosphatase Total Creatine Kinase CK-MB (CK-2) Rel Index Albumin Vancomycin Trough 03/16/18 03:19 WBC RBC Hgb Hct RDW Plt Count Lymph % (Auto) [place] % (Auto) [place] # Baso # Seg Neutrophils % Seg Neuts % (Manual) Lymphocytes % (Manual) Monocytes % (Manual) Seg Neutrophils # Seg Neutrophils # Man Monocytes # (Manual) Basophils # (Manual) Sodium Potassium Chloride Carbon Dioxide BUN 5 L Creatinine 0.4 L Glucose POC Glucose Lactic Acid Calcium Magnesium AST ALT Alkaline Phosphatase Total Creatine Kinase CK-MB (CK-2) Rel Index Albumin Vancomycin Trough
[2018-03-16] MEDS ORDERED: AFLURIA QUAD 2018-2019 SYRINGE IM ONE (12:00)
[2018-03-16] MEDS ORDERED: PREVNAR 13 IM ONE (12:00)
[2018-03-16] MEDS: NACL 0.45% 1000 ML 1,000 ML IV SCH (13:49)
[2018-03-16] MEDS: MOTRIN PO PRN (16:52)
[2018-03-16] MEDS: MORPHINE IV PRN (18:28)
[2018-03-17] MEDS: PERCOCET 5/325 PO PRN ×2 (04:53→10:45)
[2018-03-17] MEDS: NACL 0.45% 1000 ML 1,000 ML IV SCH ×2 (04:54→12:14)
[2018-03-17] MEDS: TEFLARO IV SCH ×2 (05:26→14:03)
[2018-03-17] MEDS: NACL 0.9% IV SCH ×2 (05:26→14:03)
[2018-03-17 06:51] LABS: Basophils # (Auto) 0.1 K/mm3 (0.0-0.1); Basophils % (Auto) 0.5 % (0.0-1.8); Eosinophils # (Auto) 0.1 K/mm3 (0.0-0.4); Eosinophils % (Auto) 1.2 % (0.0-4.3); Hematocrit 29.2 % (30.3-42.9); Hemoglobin 9.5 gm/dl (10.1-14.3); Lymphocytes # (Auto) 2.5 K/mm3 (1.2-5.4); Lymphocytes % (Auto) 23.5 % (13.4-35.0); Mean Corpuscular HGB Conc 33 % (30-34); Mean Corpuscular Hemoglobin 29 pg (28-32); Mean Corpuscular Volume 89 fl (79-97); Monocytes # (Auto) 0.7 K/mm3 (0.0-0.8); Monocytes % (Auto) 6.5 % (0.0-7.3); Platelet Count 811 K/mm3 (140-440); Red Blood Count 3.29 M/mm3 (3.65-5.03); Red Cell Distribution Width 14.9 % (13.2-15.2)
[2018-03-17 07:08] LABS: BUN/Creatinine Ratio 15; Blood Urea Nitrogen 6 mg/dL (7-17); Calcium 8.8 mg/dL (8.4-10.2); Hemolysis Index 4
[2018-03-17] MEDS: DUONEB *Not for PRN Use IH SCH ×2 (08:28→16:03)
[2018-03-17] MEDS ORDERED: XYLOCAINE 1% 20 mL ONE (09:12)
--- NOTE | 2018-03-17 10:27 | Progress Note ---
Assessment and Plan Assessment and plan: Sepsis. - Patient with MRSA bacteremia and bilateral pneumonia. - ID following. Continue antibiotics per recommendations-- IV Ceftaroline - MRI of the spine to R/O discitis, abscess - Leukocytosis is improved. MRSA bacteremia. Continue antibiotics per ID. - Blood culture grew MRSA, contact isolation, repeat blood culture is negative Bilateral pneumonia. - a nodular infiltrate seen on the right side which could correspond to a septic embolus - CT chest completed on 03/13/18 revealed large complex left pleural fluid collection which is likely loculated. - CHANCE completed on 03/14 revealed left ventricular chamber size normal with an EF of 55-60%. A patent foramen ovale was present but no evidence of endocarditis. Loculated pleural effusion. CT guided chest tube placement today. Hold eliquis Recent dx of Superficial venous thrombosis -As above. Holding eliquis for chest tube placement. Resume after procedure. History IVDU. - Hepatitis B, C screens negative. Anxiety disorder - Continue Xanax when necessary Pleuritic chest pain - Likely due to pneumonia - Pain control DVT prophylaxis - Continue eliquis Disposition - Continue inpatient care History Interval history: 37-year-old female with past medical history significant for hypertension, IV drug abuse, superficial venous thrombosis presented to the emergency department complaining of pleuritic left-sided chest pain. Patient had fever and elevated lactic acid and leukocytosis on admission and was admitted with diagnosis of sepsis. Patient was found to have MRSA bacteremia and bilateral pneumonia. Also, patient with loculated parapneumonic pleural effusion and is to undergo ultrasound-guided thoracentesis/chest tube placement today. No new issues overnight. Hospitalist Physical - Constitutional Vitals: Temp Pulse Resp BP Pulse Ox 97.8 F 85 18 121/82 93 03/17/18 08:40 03/17/18 08:40 03/17/18 08:40 03/17/18 08:40 03/17/18 08:40 General appearance: Present: no acute distress - EENT Eyes: Present: PERRL, EOM intact ENT: hearing intact, clear oral mucosa, dentition normal - Neck Neck: Present: supple, normal ROM - Respiratory Respiratory effort: normal Respiratory: bilateral: CTA - Cardiovascular Rhythm: regular Heart Sounds: Present: S1 & S2. Absent: gallop, rub - Extremities Extremities: no ischemia, No edema, Full ROM - Abdominal General gastrointestinal: soft, non-tender, non-distended, normal bowel sounds - Integumentary Integumentary: Present: clear, warm, dry - Neurologic Neurologic: CNII-XII intact, moves all extremities Results - Labs CBC & Chem 7: 03/17/18 05:20 03/17/18 05:20 Labs: Laboratory Last Values WBC 10.8 K/mm3 (4.5-11.0) 03/17/18 05:20 RBC 3.29 M/mm3 (3.65-5.03) L 03/17/18 05:20 Hgb 9.5 gm/dl (10.1-14.3) L 03/17/18 05:20 Hct 29.2 % (30.3-42.9) L 03/17/18 05:20 MCV 89 fl (79-97) 03/17/18 05:20 MCH 29 pg (28-32) 03/17/18 05:20 MCHC 33 % (30-34) 03/17/18 05:20 RDW 14.9 % (13.2-15.2) 03/17/18 05:20 Plt Count 811 K/mm3 (140-440) H 03/17/18 05:20 Lymph % (Auto) 23.5 % (13.4-35.0) 03/17/18 05:20 Garza % (Auto) 6.5 % (0.0-7.3) 03/17/18 05:20 Eos % (Auto) 1.2 % (0.0-4.3) 03/17/18 05:20 Baso % (Auto) 0.5 % (0.0-1.8) 03/17/18 05:20 Lymph # 2.5 K/mm3 (1.2-5.4) 03/17/18 05:20 Garza # 0.7 K/mm3 (0.0-0.8) 03/17/18 05:20 Eos # 0.1 K/mm3 (0.0-0.4) 03/17/18 05:20 Baso # 0.1 K/mm3 (0.0-0.1) 03/17/18 05:20 Add Manual Diff Complete 03/13/18 06:30 Total Counted 100 03/13/18 06:30 Seg Neutrophils % 68.3 % (40.0-70.0) 03/17/18 05:20 Seg Neuts % (Manual) 82.0 % (40.0-70.0) H 03/13/18 06:30 Band Neutrophils % 1.0 % 03/13/18 06:30 Lymphocytes % (Manual) 12.0 % (13.4-35.0) L 03/13/18 06:30 Reactive Lymphs % (Man) 1.0 % 03/13/18 06:30 Monocytes % (Manual) 2.0 % (0.0-7.3) 03/13/18 06:30 Eosinophils % (Manual) 0 % (0.0-4.3) 03/13/18 06:30 Basophils % (Manual) 0 % (0.0-1.8) 03/13/18 06:30 Metamyelocytes % 2.0 % 03/13/18 06:30 Myelocytes % 0 % 03/13/18 06:30 Promyelocytes % 0 % 03/13/18 06:30 Blast Cells % 0 % 03/13/18 06:30 Nucleated RBC % Not Reportable 03/13/18 06:30 Seg Neutrophils # 7.4 K/mm3 (1.8-7.7) 03/17/18 05:20 Seg Neutrophils # Man 17.1 K/mm3 (1.8-7.7) H 03/13/18 06:30 Band Neutrophils # 0.2 K/mm3 03/13/18 06:30 Lymphocytes # (Manual) 2.5 K/mm3 (1.2-5.4) 03/13/18 06:30 Abs React Lymphs (Man) 0.2 K/mm3 03/13/18 06:30 Monocytes # (Manual) 0.4 K/mm3 (0.0-0.8) 03/13/18 06:30 Eosinophils # (Manual) 0.0 K/mm3 (0.0-0.4) 03/13/18 06:30 Basophils # (Manual) 0.0 K/mm3 (0.0-0.1) 03/13/18 06:30 Metamyelocytes # 0.4 K/mm3 03/13/18 06:30 Myelocytes # 0.0 K/mm3 03/13/18 06:30 Promyelocytes # 0.0 K/mm3 03/13/18 06:30 Blast Cells # 0.0 K/mm3 03/13/18 06:30 WBC Morphology Not Reportable 03/13/18 06:30 Hypersegmented Neuts Not Reportable 03/13/18 06:30 Hyposegmented Neuts Not Reportable 03/13/18 06:30 Hypogranular Neuts Not Reportable 03/13/18 06:30 Smudge Cells Not Reportable 03/13/18 06:30 Toxic Granulation Not Reportable 03/13/18 06:30 Toxic Vacuolation Not Reportable 03/13/18 06:30 Dohle Bodies Not Reportable 03/13/18 06:30 Pelger-Huet Anomaly Not Reportable 03/13/18 06:30 Yoni Rods Not Reportable 03/13/18 06:30 Platelet Estimate Cons 03/13/18 06:30 Clumped Platelets Not Reportable 03/13/18 06:30 Plt Clumps, EDTA Not Reportable 03/13/18 06:30 Large Platelets Few 03/13/18 06:30 Giant Platelets Rare 03/13/18 06:30 Platelet Satelliting Not Reportable 03/13/18 06:30 Plt Morphology Comment Not Reportable 03/13/18 06:30 RBC Morphology Not Reportable 03/13/18 06:30 Dimorphic RBCs Not Reportable 03/13/18 06:30 Polychromasia Not Reportable 03/13/18 06:30 Hypochromasia Not Reportable 03/13/18 06:30 Poikilocytosis Not Reportable 03/13/18 06:30 Anisocytosis 1+ 03/13/18 06:30 Microcytosis Not Reportable 03/13/18 06:30 Macrocytosis Not Reportable 03/13/18 06:30 Spherocytes Not Reportable 03/13/18 06:30 Pappenheimer Bodies Not Reportable 03/13/18 06:30 Sickle Cells Not Reportable 03/13/18 06:30 Target Cells Not Reportable 03/13/18 06:30 Tear Drop Cells Not Reportable 03/13/18 06:30 Ovalocytes Not Reportable 03/13/18 06:30 Helmet Cells Not Reportable 03/13/18 06:30 [place] Bodies Not Reportable 03/13/18 06:30 [place] Rings Not Reportable 03/13/18 06:30 Marie Cells Not Reportable 03/13/18 06:30 Bite Cells Not Reportable 03/13/18 06:30 Crenated Cell Not Reportable 03/13/18 06:30 Elliptocytes Not Reportable 03/13/18 06:30 Acanthocytes (Spur) Not Reportable 03/13/18 06:30 Rouleaux Not Reportable 03/13/18 06:30 Hemoglobin C Crystals Not Reportable 03/13/18 06:30 Schistocytes Not Reportable 03/13/18 06:30 Malaria parasites Not Reportable 03/13/18 06:30 Canelo Bodies Not Reportable 03/13/18 06:30 Hem Pathologist Commnt No 03/13/18 06:30 PT 12.9 Sec. (12.2-14.9) 03/06/18 23:22 INR 0.93 (0.87-1.13) 03/06/18 23:22 VBG pH 7.371 (7.320-7.420) 03/06/18 23:37 Sodium 136 mmol/L (137-145) L 03/17/18 05:20 Potassium 3.6 mmol/L (3.6-5.0) 03/17/18 05:20 Chloride 98.0 mmol/L (98-107) 03/17/18 05:20 Carbon Dioxide 21 mmol/L (22-30) L 03/17/18 05:20 Anion Gap 21 mmol/L 03/17/18 05:20 BUN 6 mg/dL (7-17) L 03/17/18 05:20 Creatinine 0.4 mg/dL (0.7-1.2) L 03/17/18 05:20 Estimated GFR > 60 ml/min 03/17/18 05:20 BUN/Creatinine Ratio 15 % 03/17/18 05:20 Glucose 102 mg/dL (65-100) H 03/17/18 05:20 POC Glucose 79 (70-105) 03/14/18 06:07 Lactic Acid 1.40 mmol/L (0.7-2.0) 03/07/18 13:34 Calcium 8.8 mg/dL (8.4-10.2) 03/17/18 05:20 Magnesium 1.80 mg/dL (1.7-2.3) 03/07/18 Unknown Total Bilirubin 0.90 mg/dL (0.1-1.2) 03/10/18 05:20 AST 13 units/L (5-40) 03/10/18 05:20 ALT 21 units/L (7-56) 03/10/18 05:20 Alkaline Phosphatase 177 units/L (35-129) H 03/10/18 05:20 Total Creatine Kinase 23 units/L (30-135) L 03/07/18 09:14 CK-MB (CK-2) < 1.0 ng/mL (0.0-4.0) 03/07/18 09:14 CK-MB (CK-2) Rel Index 4.3 (0-4) H 03/07/18 09:14 Troponin T < 0.010 ng/mL (0.00-0.029) 03/07/18 09:14 Total Protein 7.2 g/dL (6.3-8.2) 03/10/18 05:20 Albumin 2.7 g/dL (3.9-5) L 03/10/18 05:20 Albumin/Globulin Ratio 0.6 % 03/10/18 05:20 Urine Color Joanna (Yellow) 03/06/18 00:46 Urine Turbidity Slightly-cloudy (Clear) 03/06/18 00:46 Urine pH 5.0 (5.0-7.0) 03/06/18 00:46 Ur Specific [place] 1.024 (1.003-1.030) 03/06/18 00:46 Urine Protein 100 mg/dl mg/dL (Negative) 03/06/18 00:46 Urine Glucose (UA) Neg mg/dL (Negative) 03/06/18 00:46 Urine Ketones Neg mg/dL (Negative) 03/06/18 00:46 Urine Blood Lg (Negative) 03/06/18 00:46 Urine Nitrite Neg (Negative) 03/06/18 00:46 Urine Bilirubin Neg (Negative) 03/06/18 00:46 Urine Urobilinogen 2.0 mg/dL (<2.0) 03/06/18 00:46 Ur Leukocyte Esterase Neg (Negative) 03/06/18 00:46 Urine WBC (Auto) 5.0 /HPF (0.0-6.0) 03/06/18 00:46 Urine RBC (Auto) > 182.0 /HPF (0.0-6.0) 03/06/18 00:46 U Epithel Cells (Auto) 5.0 /HPF (0-13.0) 03/06/18 00:46 Urine Mucus Few /HPF 03/06/18 00:46 Vancomycin Trough 4.5 ug/mL (5.0-20.0) L 03/10/18 05:20 Urine Opiates Screen Presumptive negative 03/07/18 04:35 Urine Methadone Screen Presumptive negative 03/07/18 04:35 Ur Barbiturates Screen Presumptive negative 03/07/18 04:35 Ur Phencyclidine Scrn Presumptive negative 03/07/18 04:35 Ur Amphetamines Screen Presumptive negative 03/07/18 04:35 U Benzodiazepines Scrn Presumptive negative 03/07/18 04:35 Urine Cocaine Screen Presumptive negative 03/07/18 04:35 U Marijuana (THC) Screen Presumptive negative 03/07/18 04:35 Drugs of Abuse Note Disclamer 03/07/18 04:35 Hep Bs Antigen Non-reactive (Negative) 03/07/18 23:01 Hep B Core Total Ab Nonreactive (Nonreactive) 03/07/18 23:01 Hepatitis C Antibody Non-reactive (NonReactive) 03/07/18 23:01 HIV 1&2 Antibody Rapid Non react (Non React) 03/10/18 12:50 HIV P24 Antigen Non react (Non React) 03/10/18 12:50
--- NOTE | 2018-03-17 10:39 | Ultrasound Report ---
ULTRASOUND THORACENTESIS History: Loculated left pleural effusion Description of procedure: Informed consent was obtained. Sterile technique was utilized. 1% lidocaine for skin anesthesia. Using ultrasound guidance, a 5 Czech centesis needle was advanced within a complex, loculated left pleural effusion. Only 2-3 cc of brown debris written fluid could be aspirated. This was sent to the lab for culture. The patient tolerated the procedure with minor discomfort. Impression: Successful ultrasound-guided left thoracentesis although only a 2-3 cc of brown fluid could be aspirated.
[2018-03-17] MEDS: SODIUM CHLORIDE FLUSH SYRINGE 10 ML IV SCH (10:45)
[2018-03-17] MEDS: MIRALAX 3350 PO SCH (10:45)
[2018-03-17] MEDS: XANAX PO PRN (10:51)
--- NOTE | 2018-03-17 10:56 | Procedure Note ---
Date of procedure: 03/17/18 Pre-op diagnosis: left pleural effusion Post-op diagnosis: same Procedure: US thoracentesis Findings: loculated left pleural fluid Anesthesia: local Surgeon: MYKEL GLASS Estimated blood loss: none Pathology: list (2-3cc) Specimen disposition: to lab Condition: stable Disposition: floor
--- NOTE | 2018-03-17 11:48 | Progress Note ---
Assessment and Plan 37 y/o female with loculated pleural effusion. 1. Symptomatic [place], patient is better compared to admission. Whatever this is is old, which I explained to the patient. She cannot recall any significant trauma or sick contacts/exposures. She does need thoracic surgery eval, but given her clinical improvement, this could be done as outpatient. No objection to discharge from a pulmonary standpoint. Subjective Date of service: 03/17/18 Principal diagnosis: loculated effusionted effusion, MRSA bacteremia Interval history: No acute events. Unable to aspirate much fluid from chest cavity this am based on radiology report. Daughter at bedside. Explained next steps. Objective Vital Signs - 12hr 03/16/18 03/17/18 03/17/18 23:55 04:43 08:40 Temperature 98.7 F 98.3 F 97.8 F Pulse Rate 101 H 100 H 85 Respiratory 18 18 18 Rate Blood Pressure 129/77 137/80 121/82 O2 Sat by Pulse 95 95 93 Oximetry 03/17/18 10:45 Temperature Pulse Rate Respiratory 20 Rate Blood Pressure O2 Sat by Pulse Oximetry Constitutional: no acute distress, alert Eyes: non-icteric ENT: oropharynx moist Neck: supple, no JVD Ascultation: Right: clear, Left: diminished breath sounds, rhonchi Gastrointestinal: normoactive bowel sounds, non-distended Integumentary: normal Extremities: no cyanosis, no edema, no ischemia or petechiae Neurologic: non-focal exam, other (sleepy) Psychiatric: mood appropriate, affect normal CBC and BMP: 03/17/18 05:20 03/17/18 05:20 ABG, PT/INR, D-dimer: PT/INR, D-dimer PT 12.9 Sec. (12.2-14.9) 03/06/18 23:22 INR 0.93 (0.87-1.13) 03/06/18 23:22 Abnormal lab findings: Abnormal Labs 03/06/18 03/06/18 03/06/18 23:19 23:19 23:37 WBC 12.7 H RBC Hgb Hct RDW Plt Count Lymph % (Auto) 11.3 L [place] % (Auto) [place] # Baso # Seg Neutrophils % 83.6 H Seg Neuts % (Manual) Lymphocytes % (Manual) Monocytes % (Manual) Seg Neutrophils # 10.6 H Seg Neutrophils # Man Monocytes # (Manual) Basophils # (Manual) Sodium 134 L Potassium Chloride 95.2 L Carbon Dioxide 21 L BUN Creatinine 0.6 L Glucose POC Glucose Lactic Acid 2.20 H* Calcium Magnesium AST 59 H ALT 57 H Alkaline Phosphatase 195 H Total Creatine Kinase CK-MB (CK-2) Rel Index Albumin Vancomycin Trough 03/07/18 03/07/18 03/07/18 00:49 02:36 02:36 WBC RBC Hgb Hct RDW Plt Count Lymph % (Auto) [place] % (Auto) [place] # Baso # Seg Neutrophils % Seg Neuts % (Manual) Lymphocytes % (Manual) Monocytes % (Manual) Seg Neutrophils # Seg Neutrophils # Man Monocytes # (Manual) Basophils # (Manual) Sodium Potassium Chloride Carbon Dioxide BUN Creatinine Glucose POC Glucose Lactic Acid 2.70 H* Calcium Magnesium AST ALT Alkaline Phosphatase Total Creatine Kinase 14 L 20 L CK-MB (CK-2) Rel Index 7.1 H 5.0 H Albumin Vancomycin Trough 03/07/18 03/07/18 03/07/18 09:14 13:11 13:11 WBC 12.8 H RBC Hgb Hct RDW Plt Count 139 L Lymph % (Auto) [place] % (Auto) [place] # 0.9 H Baso # Seg Neutrophils % 75.0 H Seg Neuts % (Manual) Lymphocytes % (Manual) Monocytes % (Manual) Seg Neutrophils # 9.6 H Seg Neutrophils # Man Monocytes # (Manual) Basophils # (Manual) Sodium Potassium Chloride Carbon Dioxide 20 L BUN Creatinine 0.5 L Glucose 112 H POC Glucose Lactic Acid Calcium 7.8 L D Magnesium 1.60 L AST ALT Alkaline Phosphatase Total Creatine Kinase 23 L CK-MB (CK-2) Rel Index 4.3 H Albumin Vancomycin Trough 03/08/18 03/08/18 03/09/18 05:08 05:08 06:55 WBC 12.6 H 16.2 H RBC Hgb Hct RDW Plt Count Lymph % (Auto) [place] % (Auto) 9.5 H [place] # 1.2 H Baso # Seg Neutrophils % 76.2 H Seg Neuts % (Manual) Lymphocytes % (Manual) Monocytes % (Manual) 13.0 H Seg Neutrophils # 9.6 H Seg Neutrophils # Man 10.7 H Monocytes # (Manual) 2.1 H Basophils # (Manual) Sodium 130 L D Potassium 3.1 L D Chloride Carbon Dioxide BUN 5 L Creatinine 0.5 L Glucose 124 H POC Glucose Lactic Acid Calcium Magnesium AST ALT Alkaline Phosphatase Total Creatine Kinase CK-MB (CK-2) Rel Index Albumin Vancomycin Trough 03/09/18 03/09/18 03/10/18 06:55 20:55 05:20 WBC RBC Hgb Hct RDW Plt Count Lymph % (Auto) [place] % (Auto) [place] # Baso # Seg Neutrophils % Seg Neuts % (Manual) Lymphocytes % (Manual) Monocytes % (Manual) Seg Neutrophils # Seg Neutrophils # Man Monocytes # (Manual) Basophils # (Manual) Sodium 133 L Potassium 3.5 L Chloride Carbon Dioxide BUN 4 L Creatinine 0.4 L Glucose 105 H POC Glucose 123 H Lactic Acid Calcium Magnesium AST ALT Alkaline Phosphatase Total Creatine Kinase CK-MB (CK-2) Rel Index Albumin Vancomycin Trough 4.5 L 03/10/18 03/10/18 03/11/18 05:20 05:20 06:44 WBC 19.2 H 20.4 H RBC 3.63 L Hgb Hct RDW 15.4 H Plt Count 445 H Lymph % (Auto) [place] % (Auto) [place] # Baso # Seg Neutrophils % Seg Neuts % (Manual) 76.0 H Lymphocytes % (Manual) 13.0 L Monocytes % (Manual) 12.0 H Seg Neutrophils # Seg Neutrophils # Man 13.4 H 15.5 H Monocytes # (Manual) 2.3 H 1.4 H Basophils # (Manual) 0.2 H 0.2 H Sodium 132 L Potassium Chloride Carbon Dioxide 20 L BUN 4 L Creatinine 0.4 L Glucose 109 H POC Glucose Lactic Acid Calcium Magnesium AST ALT Alkaline Phosphatase 177 H Total Creatine Kinase CK-MB (CK-2) Rel Index Albumin 2.7 L Vancomycin Trough 03/11/18 03/12/18 03/12/18 06:44 07:07 07:07 WBC 25.3 H RBC 3.48 L Hgb Hct RDW 15.3 H Plt Count 568 H Lymph % (Auto) [place] % (Auto) [place] # Baso # Seg Neutrophils % Seg Neuts % (Manual) 72.0 H Lymphocytes % (Manual) Monocytes % (Manual) Seg Neutrophils # Seg Neutrophils # Man 18.2 H Monocytes # (Manual) 1.5 H Basophils # (Manual) Sodium 135 L 135 L Potassium Chloride 96.5 L Carbon Dioxide BUN 5 L 5 L Creatinine 0.4 L 0.4 L Glucose 102 H POC Glucose Lactic Acid Calcium 8.0 L 8.3 L Magnesium AST ALT Alkaline Phosphatase Total Creatine Kinase CK-MB (CK-2) Rel Index Albumin Vancomycin Trough 03/13/18 03/13/18 03/13/18 06:16 06:30 06:30 WBC 20.9 H RBC 3.38 L Hgb 9.7 L Hct 29.6 L RDW Plt Count 671 H Lymph % (Auto) [place] % (Auto) [place] # Baso # Seg Neutrophils % Seg Neuts % (Manual) 82.0 H Lymphocytes % (Manual) 12.0 L Monocytes % (Manual) Seg Neutrophils # Seg Neutrophils # Man 17.1 H Monocytes # (Manual) Basophils # (Manual) Sodium Potassium Chloride Carbon Dioxide BUN 6 L Creatinine 0.4 L Glucose 102 H POC Glucose 117 H Lactic Acid Calcium Magnesium AST ALT Alkaline Phosphatase Total Creatine Kinase CK-MB (CK-2) Rel Index Albumin Vancomycin Trough 03/13/18 03/14/18 03/14/18 21:25 08:11 08:11 WBC 16.4 H RBC 3.43 L Hgb 9.8 L Hct 29.9 L RDW Plt Count 679 H Lymph % (Auto) [place] % (Auto) [place] # 1.1 H Baso # 0.3 H Seg Neutrophils % 76.9 H Seg Neuts % (Manual) Lymphocytes % (Manual) Monocytes % (Manual) Seg Neutrophils # 12.6 H Seg Neutrophils # Man Monocytes # (Manual) Basophils # (Manual) Sodium 135 L Potassium Chloride Carbon Dioxide BUN 5 L Creatinine 0.4 L Glucose POC Glucose 139 H Lactic Acid Calcium 8.3 L Magnesium AST ALT Alkaline Phosphatase Total Creatine Kinase CK-MB (CK-2) Rel Index Albumin Vancomycin Trough 03/15/18 03/15/18 03/16/18 05:23 05:23 03:19 WBC 15.9 H 12.0 H RBC 3.26 L 3.17 L Hgb 9.6 L 9.1 L Hct 28.7 L 27.9 L RDW Plt Count 727 H 750 H Lymph % (Auto) [place] % (Auto) 7.5 H [place] # 1.2 H 0.9 H Baso # Seg Neutrophils % 74.6 H Seg Neuts % (Manual) Lymphocytes % (Manual) Monocytes % (Manual) Seg Neutrophils # 11.8 H 8.4 H Seg Neutrophils # Man Monocytes # (Manual) Basophils # (Manual) Sodium Potassium Chloride Carbon Dioxide 21 L BUN 4 L Creatinine 0.4 L Glucose POC Glucose Lactic Acid Calcium Magnesium AST ALT Alkaline Phosphatase Total Creatine Kinase CK-MB (CK-2) Rel Index Albumin Vancomycin Trough 03/16/18 03/17/18 03/17/18 03:19 05:20 05:20 WBC RBC 3.29 L Hgb 9.5 L Hct 29.2 L RDW Plt Count 811 H Lymph % (Auto) [place] % (Auto) [place] # Baso # Seg Neutrophils % Seg Neuts % (Manual) Lymphocytes % (Manual) Monocytes % (Manual) Seg Neutrophils # Seg Neutrophils # Man Monocytes # (Manual) Basophils # (Manual) Sodium 136 L Potassium Chloride Carbon Dioxide 21 L BUN 5 L 6 L Creatinine 0.4 L 0.4 L Glucose 102 H POC Glucose Lactic Acid Calcium Magnesium AST ALT Alkaline Phosphatase Total Creatine Kinase CK-MB (CK-2) Rel Index Albumin Vancomycin Trough
[2018-03-17 12:08] LABS: Total Cells Counted 100 /mm3
--- NOTE | 2018-03-17 12:11 | XRay Report ---
AP CHEST: HISTORY: Left pleural effusion, recent ultrasound-guided left thoracentesis Recent ultrasound-guided left thoracentesis was attempted. Only a few cc of brown fluid could be aspirated. Large complex left pleural effusion remains. There is no evidence for pneumothorax. The right lung is clear. Heart and mediastinal structures remain within normal limits other than a right aortic arch. IMPRESSION: No evidence for pneumothorax.
[2018-03-17 12:15] VITALS: BP 114/82
--- NOTE | 2018-03-17 13:50 | Progress Note ---
Assessment and Plan Imagin03/13/18 CT - A large complex loculated left pleural effusion is identified which compresses most of the left lower lobe. This collection has increased significantly since the previous exam. No right pleural effusion 03/17/18 Thoracentesis - Successful ultrasound-guided left thoracentesis although only a 2-3 cc of brown fluid could be aspirated. 03/17 - chest xray - Recent ultrasound-guided left thoracentesis was attempted. Only a few cc of brown fluid could be aspirated. Large complex left pleural effusion remains. There is no evidence for pneumothorax . Cultures: 03/06/2018 blood culture: One out of 4 bottles positive for MRSA 03/07/2018 Blood culture: no growth A/P: 37-year-old female with hypertension, anxiety disorder, IVDU admitted with: 1) Sepsis, present on admission: Patient with fevers, leukocytosis, tachycardia and tachypnea. Source is MRSA bacteremia and bilateral pneumonia. 2) MRSA bacteremia with bilateral pneumonia: No evidence of septic thrombophlebitis of left lower extremity on exam. Patient does have a history of IVDU, although denies active IVDU. Bilateral pneumonia, also a nodular infiltrate seen on the right side which could correspond to a septic embolus. CHANCE negative for endocarditis Nuclear medicine leukocyte scan scheduled for today unsuccessful , unable to get blood from midline. New Midline ordered. Ultrasound-guided left thoracentesis, unsuccessful, large complex left pleural effusion remains. Plan is to see outpatient for surgery evaluation. 3) IVDU: Hepatitis B, C screens negative Recommendations: Continue Ceftaroline 600 mg q8 hrs New Midline ordered F/u on thoracentesis cultures Leukocyte scan rescheduled for tomorrow [facility] M: [phone] O:[phone] Subjective Date of service: 03/17/18 Principal diagnosis: loculated effusionted effusion, MRSA bacteremia Interval history: Patient seen and examined. Just returned from [facility], stated that she was in pain, nurse notified. Current Antimicrboials: Ceftaroline Fosamil Previous Antimicrobials: Objective - Exam Narrative Exam: Constitutional: Alert, agitated Head, Ears, Nose: Normocephalic, atraumatic. External ears, nose normal Eyes: Conjunctivae/corneas clear. No icterus. Neck: Supple, no meningeal signs Oral: edentulous, mucosa moist. Cardiovascular: S1, S2 normal, tachycardia + Respiratory: Good air entry, clear to auscultation bilaterally today GI: Soft, non-tender; bowel sounds normal. No peritoneal signs Musculoskeletal: No pedal edema, no cyanosis. Mild right and left upper paraspinal tenderness Skin: No rash or abscess, livedo type rash on both legs Hem/Lymphatic: No palpable cervical or supraclavicular nodes. No lymphangitis Psych: Agitated Neurological: Agitated - Constitutional Vitals: Vital Signs Temp Pulse Resp BP Pulse Ox 98.6 F 106 H 18 114/82 95 03/17/18 12:14 03/17/18 12:14 03/17/18 12:14 03/17/18 12:14 03/17/18 12:14 Temperature -Last 24 Hours Temperature 98.6 F Temperature 97.8 F Temperature 98.3 F Temperature 98.7 F Temperature 97.5 F Temperature 98.7 F - Labs CBC & Chem 7: 03/17/18 05:20 03/17/18 05:20 Labs: Abnormal lab results 03/17/18 03/17/18 Range/Units 05:20 05:20 RBC 3.29 L (3.65-5.03) M/mm3 Hgb 9.5 L (10.1-14.3) gm/dl Hct 29.2 L (30.3-42.9) % Plt Count 811 H (140-440) K/mm3 Sodium 136 L (137-145) mmol/L Carbon Dioxide 21 L (22-30) mmol/L BUN 6 L (7-17) mg/dL Creatinine 0.4 L (0.7-1.2) mg/dL Glucose 102 H (65-100) mg/dL
[2018-03-17] MEDS: MORPHINE IV PRN (14:03)
[2018-03-17] MEDS: ZOFRAN IV PRN (14:03)
--- NOTE | 2018-03-18 09:56 | Progress Note ---
Assessment and Plan Imagin03/13/18 CT - A large complex loculated left pleural effusion is identified which compresses most of the left lower lobe. This collection has increased significantly since the previous exam. No right pleural effusion 03/17/18 Thoracentesis - Successful ultrasound-guided left thoracentesis although only a 2-3 cc of brown fluid could be aspirated. 03/17 - chest xray - Recent ultrasound-guided left thoracentesis was attempted. Only a few cc of brown fluid could be aspirated. Large complex left pleural effusion remains. There is no evidence for pneumothorax . Cultures: 03/06/2018 blood culture: One out of 4 bottles positive for MRSA 03/07/2018 Blood culture: no growth A/P: 37-year-old female with hypertension, anxiety disorder, IVDU admitted with: 1) Sepsis, present on admission: Patient with fevers, leukocytosis, tachycardia and tachypnea. Source is MRSA bacteremia and bilateral pneumonia. 2) MRSA bacteremia with bilateral pneumonia: No evidence of septic thrombophlebitis of left lower extremity on exam. Patient does have a history of IVDU, although denies active IVDU. Bilateral pneumonia, also a nodular infiltrate seen on the right side which could correspond to a septic embolus. CHANCE negative for endocarditis Nuclear medicine leukocyte scan scheduled for today unsuccessful , unable to get blood from midline. New Midline ordered. Ultrasound-guided left thoracentesis, unsuccessful, large complex left pleural effusion remains. Plan is to see outpatient for surgery evaluation. 3) IVDU: Hepatitis B, C screens negative Recommendations: Continue Ceftaroline 600 mg q8 hrs New Midline ordered F/u on thoracentesis cultures Leukocyte scan rescheduled for tomorrow [facility] M: [phone] O:[phone] Subjective Date of service: 03/18/18 Principal diagnosis: loculated effusionted effusion, MRSA bacteremia Interval history: Current Antimicrboials: Ceftaroline Fosamil Previous Antimicrobials: Objective - Constitutional Vitals: Vital Signs Temp Pulse Resp BP Pulse Ox 98.6 F 106 H 20 114/82 95 03/17/18 12:14 03/17/18 12:14 03/17/18 14:33 03/17/18 12:14 03/17/18 12:14 Temperature -Last 24 Hours Temperature 98.6 F - Labs CBC & Chem 7: 03/17/18 05:20 03/17/18 05:20
== END 2018-03-17 18:40 | disposition left against medical advice (07) | DRG 871 ==
LOC: ED 21:27 → 4A 03-07 02:15
PROVIDERS: ADMIT Internal Medicine; ATTEND Hospitalist
PROC: 3E0234Z Introduction of Serum, Toxoid and Vaccine into Muscle, Percutaneous Approach (ICD-10-PCS; 2018-03-16)
PROC: 0W9B3ZZ Drainage of Left Pleural Cavity, Percutaneous Approach (ICD-10-PCS; principal; 2018-03-17)
DX: A41.9 Sepsis, unspecified organism (principal); J18.9 Pneumonia, unspecified organism; J90 Pleural effusion, not elsewhere classified; R04.2 Hemoptysis; L03.116 Cellulitis of left lower limb; I82.819 Embolism and thrombosis of superficial veins of unspecified lower extremity; F17.200 Nicotine dependence, unspecified, uncomplicated; I10 Essential (primary) hypertension; F41.9 Anxiety disorder, unspecified; M54.9 Dorsalgia, unspecified; R07.89 Other chest pain; Z79.899 Other long term (current) drug therapy; Z98.51 Tubal ligation status; Z90.49 Acquired absence of other specified parts of digestive tract; Z82.49 Family history of ischemic heart disease and other diseases of the circulatory system; Z23 Encounter for immunization
CPT/HCPCS: 32555; 36415; 71045; 71250; 71260; 80048; 80053; 80202; 80307; 81001; 82040; 82140; 82150; 82550; 82553; 82805; 82947; 82962; 83605; 83735; 84160; 84478; 84484; 85007; 85025; 85610; 86705; 86706; 86803; 87040; 87076; 87086; 87186; 87806; 89051; 90670; 90686; 93005; 93010; 93306; 93312; 93320; 93325; 94640; 94760; 96365; 96372; 99406; J0692; J1170; J2270; J2405; J2543; J2704; J3370; J7030; J7040; Q9967